=== PATIENT | female | born 1975 | race Caucasian/White ===

== ENCOUNTER → 2024-02-07 14:27 | Outpatient (REF) | payer OTHER, SELFPAY | LOC: HWWDC 14:27 | PROVIDERS: ATTENDING PHYSICIAN Obstetrics & Gynecology Gynecology; FAMILY PHYSICIAN Nurse Practitioner Adult Health | DX: Z12.31 Encounter for screening mammogram for malignant neoplasm of breast (principal) | CPT/HCPCS: 77063; 77067 ==

== ENCOUNTER → 2024-02-16 08:34 | Outpatient (REF) | payer OTHER, SELFPAY | LOC: WDC 08:34 | PROVIDERS: ATTENDING PHYSICIAN Obstetrics & Gynecology Gynecology; FAMILY PHYSICIAN Nurse Practitioner Adult Health | DX: R92.8 Other abnormal and inconclusive findings on diagnostic imaging of breast (principal) | CPT/HCPCS: 76642 ==

== ENCOUNTER → 2024-02-22 09:10 | Outpatient (REF) | payer OTHER, SELFPAY ==
--- NOTE | 2024-02-23 11:29 | OID.BR.INTR ---
OID Breast Navigator - Initial
- -
Did not meet patient at time of biopsy. Will follow up per protocol.
== END ==
LOC: WDC 09:10
PROVIDERS: ATTENDING PHYSICIAN Obstetrics & Gynecology Gynecology; FAMILY PHYSICIAN Nurse Practitioner Adult Health
DX: N63.13 Unspecified lump in the right breast, lower outer quadrant (principal)
CPT/HCPCS: 88305; 19083; 77065; 88341; 88342; 88360; A4648

== ENCOUNTER 2024-03-06 06:24 | Day surgery (SDC) | payer OTHER, SELFPAY ==
[2024-03-02 06:34] VITALS: BMI 28.2
[2024-03-02 09:11] LABS: Hematocrit 41.5 % (37.0-47.0); Hemoglobin 13.8 g/dL (12.0-16.0); Mean Corp Hgb Conc. 33.3 g/dL (33.0-37.0); Mean Corpuscular Hgb 31.4 pg (27.0-31.0); Mean Corpuscular Volume 94.3 fL (81.0-99.0); Mean Platelet Volume 9.9 fL (7.4-10.4); Platelet Count 246 10^3/uL (130-400); Red Cell Dist. Width 11.9 % (11.5-14.5)
[2024-03-02 09:46] LABS: ALT (SGPT) 23 U/L (0-35); AST (SGOT) 30 U/L (14-36); Albumin 3.8 g/dl (3.5-5.0); Alkaline Phosphatase 61 U/L (38-126); Blood Urea Nitrogen 16 mg/dl (7-17); Calcium 9.4 mg/dl (8.4-10.2); Carbon Dioxide 24 mmol/L (22-30); Chloride 103 mmol/L (98-107); Estimated Creatinine Clearance 95 ml/min; Glucose 84 mg/dl (70-99); Potassium 4.4 mmol/L (3.5-5.1); Sodium 137 mmol/L (135-145); Total Bilirubin 0.7 mg/dl (0.2-1.3); Total Protein 6.9 g/dl (6.3-8.2); eGFR > 60.00
[2024-03-02 09:47] LABS: Prealbumin (Transthyretin) 24.4 mg/dl (17.6-36.0)
[2024-03-02 09:55] LABS: Vitamin D, 25-OH*** 88.6 ng/mL (30-80)
[2024-03-06 07:50] VITALS: BMI 28.2
[2024-03-06 07:51] VITALS: BP 146/81
[2024-03-06] MEDS: NSS 1000 IV (08:04)
[2024-03-06] MEDS: TYLENOL 1000 MG PO (08:06)
[2024-03-06] MEDS: VANCOCIN 300 MG IV (08:11)
[2024-03-06] MEDS: VANCOCIN 300 ML IV (08:11)
[2024-03-06 09:48] VITALS: BP 117/72
[2024-03-06 10:03] VITALS: BP 121/64
[2024-03-06 10:30] VITALS: BP 124/64
== END 2024-03-06 11:45 | disposition home or self-care (01) ==
LOC: SDS 06:24
PROVIDERS: ATTENDING PHYSICIAN Surgery; FAMILY PHYSICIAN Nurse Practitioner Adult Health
DX: C50.911 Malignant neoplasm of unspecified site of right female breast (principal); Z17.1 Estrogen receptor negative status [ER-]
CPT/HCPCS: 36561; 36415; 71045; 76000; 80053; 82306; 84134; 85027; C1788

== ENCOUNTER → 2024-03-08 13:45 | Outpatient (REF) | payer OTHER, SELFPAY | LOC: RCS 13:45 | PROVIDERS: ATTENDING PHYSICIAN Internal Medicine Hematology & Oncology; FAMILY PHYSICIAN Nurse Practitioner Adult Health | DX: C50.511 Malignant neoplasm of lower-outer quadrant of right female breast (principal) | CPT/HCPCS: 93306 ==

== ENCOUNTER → 2024-03-12 15:41 | Outpatient (REF) | payer OTHER, SELFPAY ==
[2024-03-12 14:32] LABS: % Basophils 0.5 % (0-2); % Eosinophils 5.7 % (0-6); % Immature Granulocytes 0.2 % (0-0.5); % Lymphocytes 27.3 % (20.5-51.1); % Monocytes 7.8 % (1.7-9.3); % Neutrophils 58.5 % (42.2-75.2); Absolute Eosinophils 0.5 10^3/uL (0-0.7); Absolute Lymphocytes 2.3 10^3/uL (1.2-3.4); Absolute Monocytes 0.7 10^3/uL (0.1-0.6); Absolute Neutrophils 4.9 10^3/uL (1.4-6.5); Hematocrit 37.7 % (37.0-47.0); Hemoglobin 13.2 g/dL (12.0-16.0); Mean Corpuscular Hgb 31.3 pg (27.0-31.0); Mean Corpuscular Volume 89.3 fL (81.0-99.0); Mean Platelet Volume 9.4 fL (7.4-10.4); Nucleated Red Blood Cells % 0 %; Platelet Count 196 10^3/uL (130-400); Red Blood Cell Count 4.22 10^6/uL (4.20-5.40); Red Cell Dist. Width 11.9 % (11.5-14.5); White Blood Cell Count 8.4 10^3/uL (4.8-10.8)
[2024-03-12 14:45] LABS: ALT (SGPT) 20 U/L (0-35); AST (SGOT) 25 U/L (14-36); Albumin 3.8 g/dl (3.5-5.0); Alkaline Phosphatase 73 U/L (38-126); Blood Urea Nitrogen 17 mg/dl (7-17); Calcium 9.5 mg/dl (8.4-10.2); Carbon Dioxide 28 mmol/L (22-30); Chloride 101 mmol/L (98-107); Glucose 104 mg/dl (70-99); Potassium 3.9 mmol/L (3.5-5.1); Sodium 137 mmol/L (135-145); Total Bilirubin 0.3 mg/dl (0.2-1.3); eGFR > 60.00
== END ==
LOC: OIDL 15:41
PROVIDERS: ATTENDING PHYSICIAN Internal Medicine Hematology & Oncology
DX: C50.511 Malignant neoplasm of lower-outer quadrant of right female breast (principal)
CPT/HCPCS: 80053; 85025

== ENCOUNTER → 2024-03-27 06:47 | Outpatient (REF) | payer OTHER, SELFPAY ==
[2024-03-27 07:49] LABS: % Basophils 1.4 % (0-2); % Eosinophils 1.6 % (0-6); % Immature Granulocytes 8.2 % (0-0.5); % Monocytes 13.4 % (1.7-9.3); % Neutrophils 44.4 % (42.2-75.2); Absolute Basophils 0.1 10^3/uL (0-0.2); Absolute Eosinophils 0.1 10^3/uL (0-0.7); Absolute Immature Granulocytes 0.6 10^3/uL (0-0.05); Absolute Lymphocytes 2.4 10^3/uL (1.2-3.4); Absolute Neutrophils 3.4 10^3/uL (1.4-6.5); Hematocrit 36.6 % (37.0-47.0); Hemoglobin 12.7 g/dL (12.0-16.0); Mean Corp Hgb Conc. 34.7 g/dL (33.0-37.0); Mean Corpuscular Hgb 30.9 pg (27.0-31.0); Mean Corpuscular Volume 89.1 fL (81.0-99.0); Mean Platelet Volume 8.9 fL (7.4-10.4); Nucleated Red Blood Cells % 0 %; Platelet Count 195 10^3/uL (130-400); Red Blood Cell Count 4.11 10^6/uL (4.20-5.40); Red Cell Dist. Width 11.8 % (11.5-14.5); White Blood Cell Count 7.7 10^3/uL (4.8-10.8)
[2024-03-27 09:14] LABS: ALT (SGPT) 19 U/L (0-35); AST (SGOT) 26 U/L (14-36); Albumin 3.9 g/dl (3.5-5.0); Alkaline Phosphatase 80 U/L (38-126); Blood Urea Nitrogen 15 mg/dl (7-17); Calcium 9.7 mg/dl (8.4-10.2); Carbon Dioxide 28 mmol/L (22-30); Chloride 103 mmol/L (98-107); Glucose 91 mg/dl (70-99); Potassium 4.6 mmol/L (3.5-5.1); Sodium 138 mmol/L (135-145); Total Bilirubin 0.2 mg/dl (0.2-1.3); Total Protein 6.7 g/dl (6.3-8.2); eGFR > 60.00
== END ==
LOC: REG 06:47
PROVIDERS: ATTENDING PHYSICIAN Internal Medicine Hematology & Oncology; FAMILY PHYSICIAN Nurse Practitioner Adult Health
DX: C50.511 Malignant neoplasm of lower-outer quadrant of right female breast (principal)
CPT/HCPCS: 36415; 80053; 85025

== ENCOUNTER → 2024-04-10 07:23 | Outpatient (REF) | payer OTHER, SELFPAY ==
[2024-04-10 08:33] LABS: Hematocrit 35.2 % (37.0-47.0); Hemoglobin 12.4 g/dL (12.0-16.0); Mean Corp Hgb Conc. 35.2 g/dL (33.0-37.0); Mean Corpuscular Hgb 30.9 pg (27.0-31.0); Mean Corpuscular Volume 87.8 fL (81.0-99.0); Mean Platelet Volume 9.2 fL (7.4-10.4); Platelet Count 203 10^3/uL (130-400); Red Blood Cell Count 4.01 10^6/uL (4.20-5.40); Red Cell Dist. Width 12.1 % (11.5-14.5); White Blood Cell Count 8.9 10^3/uL (4.8-10.8)
[2024-04-10 09:04] LABS: ALT (SGPT) 16 U/L (0-35); AST (SGOT) 25 U/L (14-36); Albumin 4.2 g/dl (3.5-5.0); Alkaline Phosphatase 88 U/L (38-126); Blood Urea Nitrogen 15 mg/dl (7-17); Calcium 9.6 mg/dl (8.4-10.2); Carbon Dioxide 28 mmol/L (22-30); Chloride 103 mmol/L (98-107); Glucose 92 mg/dl (70-99); Potassium 4.3 mmol/L (3.5-5.1); Sodium 138 mmol/L (135-145); Total Bilirubin 0.4 mg/dl (0.2-1.3); Total Protein 6.7 g/dl (6.3-8.2); eGFR > 60.00
[2024-04-10 09:10] LABS: % Basophils 1.5 % (0-2); % Eosinophils 0.8 % (0-6); % Immature Granulocytes 8.5 % (0-0.5); % Lymphocytes 20.5 % (20.5-51.1); % Monocytes 14.1 % (1.7-9.3); % Neutrophils 54.6 % (42.2-75.2); Absolute Basophils 0.1 10^3/uL (0-0.2); Absolute Eosinophils 0.1 10^3/uL (0-0.7); Absolute Immature Granulocytes 0.8 10^3/uL (0-0.05); Absolute Lymphocytes 1.8 10^3/uL (1.2-3.4); Absolute Monocytes 1.3 10^3/uL (0.1-0.6); Absolute Neutrophils 4.9 10^3/uL (1.4-6.5); Nucleated Red Blood Cells % 0 %
== END ==
LOC: REG 07:23
PROVIDERS: ATTENDING PHYSICIAN Internal Medicine Hematology & Oncology
DX: C50.511 Malignant neoplasm of lower-outer quadrant of right female breast (principal)
CPT/HCPCS: 36415; 80053; 85025

== ENCOUNTER → 2024-04-24 07:08 | Outpatient (REF) | payer OTHER, SELFPAY ==
[2024-04-24 08:21] LABS: Hematocrit 30.7 % (37.0-47.0); Hemoglobin 10.9 g/dL (12.0-16.0); Mean Corp Hgb Conc. 35.5 g/dL (33.0-37.0); Mean Corpuscular Hgb 31.8 pg (27.0-31.0); Mean Corpuscular Volume 89.5 fL (81.0-99.0); Mean Platelet Volume 9.4 fL (7.4-10.4); Platelet Count 181 10^3/uL (130-400); Red Blood Cell Count 3.43 10^6/uL (4.20-5.40); Red Cell Dist. Width 13.1 % (11.5-14.5); White Blood Cell Count 6.7 10^3/uL (4.8-10.8)
[2024-04-24 08:39] LABS: Absolute Neutrophils -Man Diff 4.6 10^3/uL (1.4-6.5); Band Neutrophils 3 % (0-3); Eosinophils 2 % (0-6); Lymphocytes 17 % (20-51); Monocytes 11 % (2-9); Normal RBC Morphology Yes; Platelets Checked Yes; Segmented Neutrophils 67 % (42-75); Total Cells Counted 100
[2024-04-24 09:01] LABS: ALT (SGPT) 15 U/L (0-35); AST (SGOT) 23 U/L (14-36); Albumin 3.9 g/dl (3.5-5.0); Alkaline Phosphatase 80 U/L (38-126); Blood Urea Nitrogen 14 mg/dl (7-17); Calcium 9.7 mg/dl (8.4-10.2); Carbon Dioxide 29 mmol/L (22-30); Chloride 103 mmol/L (98-107); Glucose 94 mg/dl (70-99); Potassium 4.1 mmol/L (3.5-5.1); Sodium 138 mmol/L (135-145); Total Bilirubin 0.4 mg/dl (0.2-1.3); Total Protein 6.3 g/dl (6.3-8.2); eGFR > 60.00
== END ==
LOC: REG 07:08
PROVIDERS: ATTENDING PHYSICIAN Internal Medicine Hematology & Oncology; FAMILY PHYSICIAN Nurse Practitioner Adult Health
DX: C50.511 Malignant neoplasm of lower-outer quadrant of right female breast (principal)
CPT/HCPCS: 36415; 80053; 85025

== ENCOUNTER → 2024-05-04 14:20 | Outpatient (REF) | payer OTHER, SELFPAY | LOC: HWRAD 14:20 | PROVIDERS: ATTENDING PHYSICIAN Nurse Practitioner Family | DX: R06.09 Other forms of dyspnea (principal) | CPT/HCPCS: 71046 ==

== ENCOUNTER → 2024-05-08 07:12 | Outpatient (REF) | payer OTHER, SELFPAY ==
[2024-05-08 08:49] LABS: Hematocrit 28.3 % (37.0-47.0); Hemoglobin 9.8 g/dL (12.0-16.0); Mean Corp Hgb Conc. 34.6 g/dL (33.0-37.0); Mean Corpuscular Hgb 32.3 pg (27.0-31.0); Mean Corpuscular Volume 93.4 fL (81.0-99.0); Mean Platelet Volume 9.5 fL (7.4-10.4); Platelet Count 161 10^3/uL (130-400); Red Blood Cell Count 3.03 10^6/uL (4.20-5.40); Red Cell Dist. Width 15.7 % (11.5-14.5); White Blood Cell Count 6.1 10^3/uL (4.8-10.8)
[2024-05-08 09:09] LABS: ALT (SGPT) 13 U/L (0-35); AST (SGOT) 21 U/L (14-36); Albumin 3.7 g/dl (3.5-5.0); Alkaline Phosphatase 83 U/L (38-126); Blood Urea Nitrogen 11 mg/dl (7-17); Calcium 9.7 mg/dl (8.4-10.2); Carbon Dioxide 27 mmol/L (22-30); Chloride 105 mmol/L (98-107); Glucose 91 mg/dl (70-99); Potassium 4.3 mmol/L (3.5-5.1); Sodium 137 mmol/L (135-145); Total Bilirubin 0.2 mg/dl (0.2-1.3); Total Protein 6.2 g/dl (6.3-8.2); eGFR > 60.00
[2024-05-08 10:34] LABS: % Basophils 1.5 % (0-2); % Immature Granulocytes 8.5 % (0-0.5); % Lymphocytes 16.4 % (20.5-51.1); % Monocytes 15.3 % (1.7-9.3); % Neutrophils 57.3 % (42.2-75.2); Absolute Basophils 0.1 10^3/uL (0-0.2); Absolute Eosinophils 0.1 10^3/uL (0-0.7); Absolute Immature Granulocytes 0.5 10^3/uL (0-0.05); Absolute Monocytes 0.9 10^3/uL (0.1-0.6); Absolute Neutrophils 3.5 10^3/uL (1.4-6.5); Nucleated Red Blood Cells % 0.3 %
== END ==
LOC: REG 07:12
PROVIDERS: ATTENDING PHYSICIAN Internal Medicine Hematology & Oncology; FAMILY PHYSICIAN Nurse Practitioner Adult Health
DX: C50.511 Malignant neoplasm of lower-outer quadrant of right female breast (principal)
CPT/HCPCS: 36415; 80053; 85025

== ENCOUNTER → 2024-05-14 09:20 | Outpatient (REF) | payer OTHER, SELFPAY | LOC: RCS 09:20 | PROVIDERS: ATTENDING PHYSICIAN Nurse Practitioner Family; FAMILY PHYSICIAN Nurse Practitioner Adult Health | DX: C50.919 Malignant neoplasm of unspecified site of unspecified female breast (principal); R06.09 Other forms of dyspnea; Z92.21 Personal history of antineoplastic chemotherapy; Z17.1 Estrogen receptor negative status [ER-] | CPT/HCPCS: 93306 ==

== ENCOUNTER → 2024-05-15 08:42 | Outpatient (REF) | payer OTHER, SELFPAY ==
[2024-05-15 09:14] LABS: Hematocrit 28.1 % (37.0-47.0); Hemoglobin 9.7 g/dL (12.0-16.0); Mean Corp Hgb Conc. 34.5 g/dL (33.0-37.0); Mean Corpuscular Hgb 31.7 pg (27.0-31.0); Mean Corpuscular Volume 91.8 fL (81.0-99.0); Mean Platelet Volume 8.7 fL (7.4-10.4); Platelet Count 239 10^3/uL (130-400); Red Blood Cell Count 3.06 10^6/uL (4.20-5.40); White Blood Cell Count 2.8 10^3/uL (4.8-10.8)
[2024-05-15 09:34] LABS: ALT (SGPT) 18 U/L (0-35); AST (SGOT) 24 U/L (14-36); Albumin 3.8 g/dl (3.5-5.0); Alkaline Phosphatase 64 U/L (38-126); Blood Urea Nitrogen 11 mg/dl (7-17); Calcium 9.6 mg/dl (8.4-10.2); Carbon Dioxide 25 mmol/L (22-30); Chloride 105 mmol/L (98-107); Glucose 96 mg/dl (70-99); Potassium 4.4 mmol/L (3.5-5.1); Sodium 136 mmol/L (135-145); Total Bilirubin 0.6 mg/dl (0.2-1.3); Total Protein 6.4 g/dl (6.3-8.2); eGFR > 60.00
[2024-05-15 10:05] LABS: % Basophils 2.5 % (0-2); % Eosinophils 2.2 % (0-6); % Immature Granulocytes 1.1 % (0-0.5); % Monocytes 13.3 % (1.7-9.3); % Neutrophils 53.9 % (42.2-75.2); Absolute Basophils 0.1 10^3/uL (0-0.2); Absolute Eosinophils 0.1 10^3/uL (0-0.7); Absolute Lymphocytes 0.8 10^3/uL (1.2-3.4); Absolute Monocytes 0.4 10^3/uL (0.1-0.6); Absolute Neutrophils 1.5 10^3/uL (1.4-6.5); Nucleated Red Blood Cells % 0 %
== END ==
LOC: REG 08:42
PROVIDERS: ATTENDING PHYSICIAN Internal Medicine Hematology & Oncology; FAMILY PHYSICIAN Nurse Practitioner Adult Health
DX: C50.511 Malignant neoplasm of lower-outer quadrant of right female breast (principal)
CPT/HCPCS: 36415; 80053; 85025

== ENCOUNTER → 2024-05-22 09:04 | Outpatient (REF) | payer OTHER, SELFPAY ==
[2024-05-22 10:08] LABS: % Basophils 2.2 % (0-2); % Eosinophils 2.6 % (0-6); % Immature Granulocytes 0.9 % (0-0.5); % Lymphocytes 31.9 % (20.5-51.1); % Monocytes 9.5 % (1.7-9.3); % Neutrophils 52.9 % (42.2-75.2); Absolute Basophils 0.1 10^3/uL (0-0.2); Absolute Eosinophils 0.1 10^3/uL (0-0.7); Absolute Lymphocytes 0.7 10^3/uL (1.2-3.4); Absolute Monocytes 0.2 10^3/uL (0.1-0.6); Absolute Neutrophils 1.2 10^3/uL (1.4-6.5); Hematocrit 27.9 % (37.0-47.0); Hemoglobin 9.9 g/dL (12.0-16.0); Mean Corp Hgb Conc. 35.5 g/dL (33.0-37.0); Mean Corpuscular Hgb 33.1 pg (27.0-31.0); Mean Corpuscular Volume 93.3 fL (81.0-99.0); Mean Platelet Volume 9.1 fL (7.4-10.4); Nucleated Red Blood Cells % 0 %; Platelet Count 221 10^3/uL (130-400); Red Blood Cell Count 2.99 10^6/uL (4.20-5.40); Red Cell Dist. Width 16.5 % (11.5-14.5); White Blood Cell Count 2.3 10^3/uL (4.8-10.8)
[2024-05-22 10:25] LABS: ALT (SGPT) 23 U/L (0-35); AST (SGOT) 28 U/L (14-36); Albumin 4.1 g/dl (3.5-5.0); Alkaline Phosphatase 63 U/L (38-126); Blood Urea Nitrogen 12 mg/dl (7-17); Calcium 9.9 mg/dl (8.4-10.2); Carbon Dioxide 25 mmol/L (22-30); Chloride 102 mmol/L (98-107); Glucose 98 mg/dl (70-99); Potassium 4.3 mmol/L (3.5-5.1); Sodium 137 mmol/L (135-145); Total Bilirubin 0.7 mg/dl (0.2-1.3); Total Protein 6.5 g/dl (6.3-8.2); eGFR > 60.00
== END ==
LOC: REG 09:04
PROVIDERS: ATTENDING PHYSICIAN Internal Medicine Hematology & Oncology; FAMILY PHYSICIAN Nurse Practitioner Adult Health; REFERRING PHYSICIAN Nurse Practitioner Adult Health
DX: C50.511 Malignant neoplasm of lower-outer quadrant of right female breast (principal)
CPT/HCPCS: 36415; 71275; 80053; 85025; Q9967

== ENCOUNTER → 2024-05-24 07:38 | Outpatient (REF) | payer OTHER, SELFPAY | LOC: RSP 07:38 | PROVIDERS: ATTENDING PHYSICIAN Nurse Practitioner Adult Health; FAMILY PHYSICIAN Nurse Practitioner Adult Health | DX: C50.511 Malignant neoplasm of lower-outer quadrant of right female breast (principal) | CPT/HCPCS: 94727; 94729; 94010 ==

== ENCOUNTER → 2024-05-29 08:33 | Outpatient (REF) | payer OTHER, SELFPAY ==
[2024-05-29 10:09] LABS: % Basophils 2.1 % (0-2); % Eosinophils 2.1 % (0-6); % Immature Granulocytes 0.8 % (0-0.5); % Lymphocytes 30.7 % (20.5-51.1); % Monocytes 9.5 % (1.7-9.3); % Neutrophils 54.8 % (42.2-75.2); Absolute Basophils 0.1 10^3/uL (0-0.2); Absolute Eosinophils 0.1 10^3/uL (0-0.7); Absolute Lymphocytes 0.7 10^3/uL (1.2-3.4); Absolute Monocytes 0.2 10^3/uL (0.1-0.6); Absolute Neutrophils 1.3 10^3/uL (1.4-6.5); Hematocrit 29.6 % (37.0-47.0); Hemoglobin 10.4 g/dL (12.0-16.0); Mean Corp Hgb Conc. 35.1 g/dL (33.0-37.0); Mean Corpuscular Hgb 34.1 pg (27.0-31.0); Mean Platelet Volume 9.2 fL (7.4-10.4); Nucleated Red Blood Cells % 0 %; Platelet Count 186 10^3/uL (130-400); Red Blood Cell Count 3.05 10^6/uL (4.20-5.40); Red Cell Dist. Width 16.4 % (11.5-14.5); White Blood Cell Count 2.4 10^3/uL (4.8-10.8)
[2024-05-29 10:27] LABS: ALT (SGPT) 25 U/L (0-35); AST (SGOT) 27 U/L (14-36); Albumin 4.2 g/dl (3.5-5.0); Alkaline Phosphatase 67 U/L (38-126); Blood Urea Nitrogen 14 mg/dl (7-17); Calcium 9.9 mg/dl (8.4-10.2); Carbon Dioxide 27 mmol/L (22-30); Chloride 103 mmol/L (98-107); Glucose 102 mg/dl (70-99); Potassium 4.7 mmol/L (3.5-5.1); Sodium 139 mmol/L (135-145); Total Bilirubin 0.7 mg/dl (0.2-1.3); Total Protein 6.7 g/dl (6.3-8.2); eGFR > 60.00
== END ==
LOC: REG 08:33
PROVIDERS: ATTENDING PHYSICIAN Internal Medicine Hematology & Oncology; FAMILY PHYSICIAN Nurse Practitioner Adult Health
DX: C50.511 Malignant neoplasm of lower-outer quadrant of right female breast (principal)
CPT/HCPCS: 36415; 80053; 85025

== ENCOUNTER → 2024-06-05 07:27 | Outpatient (REF) | payer OTHER, SELFPAY ==
[2024-06-05 08:58] LABS: ALT (SGPT) 20 U/L (0-35); AST (SGOT) 25 U/L (14-36); Albumin 3.7 g/dl (3.5-5.0); Alkaline Phosphatase 67 U/L (38-126); Blood Urea Nitrogen 13 mg/dl (7-17); Calcium 9.5 mg/dl (8.4-10.2); Carbon Dioxide 23 mmol/L (22-30); Chloride 103 mmol/L (98-107); Glucose 89 mg/dl (70-99); Potassium 3.7 mmol/L (3.5-5.1); Sodium 139 mmol/L (135-145); Total Bilirubin 0.8 mg/dl (0.2-1.3); Total Protein 6.2 g/dl (6.3-8.2); eGFR > 60.00
[2024-06-05 09:07] LABS: % Basophils 1.5 % (0-2); % Eosinophils 3.6 % (0-6); % Immature Granulocytes 0.5 % (0-0.5); % Monocytes 7.1 % (1.7-9.3); % Neutrophils 53.3 % (42.2-75.2); Absolute Eosinophils 0.1 10^3/uL (0-0.7); Absolute Lymphocytes 0.7 10^3/uL (1.2-3.4); Absolute Monocytes 0.1 10^3/uL (0.1-0.6); Absolute Neutrophils 1.1 10^3/uL (1.4-6.5); Hematocrit 25.4 % (37.0-47.0); Hemoglobin 8.9 g/dL (12.0-16.0); Mean Corpuscular Hgb 33.2 pg (27.0-31.0); Mean Corpuscular Volume 94.8 fL (81.0-99.0); Mean Platelet Volume 9.5 fL (7.4-10.4); Nucleated Red Blood Cells % 0 %; Platelet Count 120 10^3/uL (130-400); Red Blood Cell Count 2.68 10^6/uL (4.20-5.40); Red Cell Dist. Width 15.5 % (11.5-14.5)
== END ==
LOC: REG 07:27
PROVIDERS: ATTENDING PHYSICIAN Internal Medicine Hematology & Oncology; FAMILY PHYSICIAN Nurse Practitioner Adult Health
DX: C50.511 Malignant neoplasm of lower-outer quadrant of right female breast (principal)
CPT/HCPCS: 36415; 80053; 85025

== ENCOUNTER → 2024-06-07 10:37 | Outpatient (REF) | payer OTHER, SELFPAY | LOC: RCS 10:37 | PROVIDERS: ATTENDING PHYSICIAN Internal Medicine; FAMILY PHYSICIAN Nurse Practitioner Adult Health; REFERRING PHYSICIAN Internal Medicine Hematology & Oncology | DX: R06.02 Shortness of breath (principal); R07.9 Chest pain, unspecified; R00.0 Tachycardia, unspecified | CPT/HCPCS: 93017 ==

== ENCOUNTER → 2024-06-07 11:29 | Outpatient (REF) | payer OTHER, SELFPAY | LOC: RAD 11:29 | PROVIDERS: ATTENDING PHYSICIAN Nurse Practitioner Adult Health; FAMILY PHYSICIAN Nurse Practitioner Adult Health; REFERRING PHYSICIAN Internal Medicine | DX: C50.511 Malignant neoplasm of lower-outer quadrant of right female breast (principal); R06.02 Shortness of breath; R07.9 Chest pain, unspecified; R00.0 Tachycardia, unspecified | CPT/HCPCS: 76536 ==

== ENCOUNTER → 2024-06-07 11:32 | Outpatient (REF) | payer OTHER, SELFPAY | LOC: RCS 11:32 | PROVIDERS: ATTENDING PHYSICIAN Internal Medicine; FAMILY PHYSICIAN Nurse Practitioner Adult Health | DX: R06.02 Shortness of breath (principal) | CPT/HCPCS: 93225; 93226 ==

== ENCOUNTER → 2024-06-12 08:13 | Outpatient (REF) | payer OTHER, SELFPAY ==
[2024-06-12 09:20] LABS: Hematocrit 29.9 % (37.0-47.0); Hemoglobin 10.3 g/dL (12.0-16.0); Mean Corp Hgb Conc. 34.4 g/dL (33.0-37.0); Mean Corpuscular Hgb 34.7 pg (27.0-31.0); Mean Corpuscular Volume 100.7 fL (81.0-99.0); Mean Platelet Volume 9.3 fL (7.4-10.4); Platelet Count 123 10^3/uL (130-400); Red Blood Cell Count 2.97 10^6/uL (4.20-5.40); Red Cell Dist. Width 15.2 % (11.5-14.5)
[2024-06-12 10:31] LABS: ALT (SGPT) 21 U/L (0-35); AST (SGOT) 25 U/L (14-36); Albumin 3.8 g/dl (3.5-5.0); Alkaline Phosphatase 76 U/L (38-126); Blood Urea Nitrogen 9 mg/dl (7-17); Calcium 9.8 mg/dl (8.4-10.2); Carbon Dioxide 27 mmol/L (22-30); Chloride 105 mmol/L (98-107); Glucose 86 mg/dl (70-99); Potassium 4.3 mmol/L (3.5-5.1); Sodium 141 mmol/L (135-145); Total Bilirubin 0.6 mg/dl (0.2-1.3); Total Protein 6.3 g/dl (6.3-8.2); eGFR > 60.00
[2024-06-12 10:45] LABS: White Blood Cell Count 2.2 10^3/uL (4.8-10.8)
[2024-06-12 10:46] LABS: Absolute Neutrophils -Man Diff 0.5 10^3/uL (1.4-6.5); Atypical Lymphocytes 4 %; Band Neutrophils 3 % (0-3); Eosinophils 5 % (0-6); Lymphocytes 48 % (20-51); Monocytes 12 % (2-9); Myelocytes 5 % (-); Normal RBC Morphology Yes; Platelets Checked Yes; Segmented Neutrophils 23 % (42-75)
[2024-06-12 10:47] LABS: Total Cells Counted 100
== END ==
LOC: REG 08:13
PROVIDERS: ATTENDING PHYSICIAN Internal Medicine Hematology & Oncology; FAMILY PHYSICIAN Nurse Practitioner Adult Health
DX: C50.511 Malignant neoplasm of lower-outer quadrant of right female breast (principal)
CPT/HCPCS: 36415; 80053; 85025

== ENCOUNTER → 2024-06-15 08:51 | Outpatient (REF) | payer OTHER, SELFPAY ==
[2024-06-15 09:51] LABS: % Basophils 0.2 % (0-2); % Immature Granulocytes 6.9 % (0-0.5); % Lymphocytes 5.6 % (20.5-51.1); % Monocytes 3.1 % (1.7-9.3); % Neutrophils 83.2 % (42.2-75.2); Absolute Basophils 0.1 10^3/uL (0-0.2); Absolute Eosinophils 0.2 10^3/uL (0-0.7); Absolute Immature Granulocytes 1.7 10^3/uL (0-0.05); Absolute Lymphocytes 1.3 10^3/uL (1.2-3.4); Absolute Monocytes 0.7 10^3/uL (0.1-0.6); Absolute Neutrophils 19.9 10^3/uL (1.4-6.5); Hematocrit 28.7 % (37.0-47.0); Hemoglobin 9.9 g/dL (12.0-16.0); Mean Corp Hgb Conc. 34.5 g/dL (33.0-37.0); Mean Corpuscular Hgb 33.7 pg (27.0-31.0); Mean Corpuscular Volume 97.6 fL (81.0-99.0); Mean Platelet Volume 9.4 fL (7.4-10.4); Nucleated Red Blood Cells % 0 %; Platelet Count 140 10^3/uL (130-400); Red Blood Cell Count 2.94 10^6/uL (4.20-5.40); Red Cell Dist. Width 15.2 % (11.5-14.5); White Blood Cell Count 23.9 10^3/uL (4.8-10.8)
== END ==
LOC: OIDL 08:51
PROVIDERS: ATTENDING PHYSICIAN Internal Medicine Hematology & Oncology
DX: C50.511 Malignant neoplasm of lower-outer quadrant of right female breast (principal); K62.5 Hemorrhage of anus and rectum
CPT/HCPCS: 85025

== ENCOUNTER → 2024-06-18 12:21 | Outpatient (REF) | payer OTHER, SELFPAY | LOC: PAVMRI 12:21 | PROVIDERS: ATTENDING PHYSICIAN Otolaryngology; FAMILY PHYSICIAN Nurse Practitioner Adult Health | DX: H93.A9 Pulsatile tinnitus, unspecified ear (principal) | CPT/HCPCS: 70543; 70553; A9575 ==

== ENCOUNTER → 2024-06-19 08:40 | Outpatient (REF) | payer OTHER, SELFPAY ==
[2024-06-19 09:30] LABS: Hematocrit 31.7 % (37.0-47.0); Mean Corp Hgb Conc. 34.7 g/dL (33.0-37.0); Mean Corpuscular Hgb 34.7 pg (27.0-31.0); Platelet Count 168 10^3/uL (130-400); Red Blood Cell Count 3.17 10^6/uL (4.20-5.40); Red Cell Dist. Width 14.2 % (11.5-14.5)
[2024-06-19 10:29] LABS: ALT (SGPT) 22 U/L (0-35); AST (SGOT) 25 U/L (14-36); Albumin 3.8 g/dl (3.5-5.0); Alkaline Phosphatase 91 U/L (38-126); Blood Urea Nitrogen 15 mg/dl (7-17); Calcium 9.6 mg/dl (8.4-10.2); Carbon Dioxide 21 mmol/L (22-30); Chloride 105 mmol/L (98-107); Glucose 86 mg/dl (70-99); Potassium 4.2 mmol/L (3.5-5.1); Sodium 140 mmol/L (135-145); Total Bilirubin 0.5 mg/dl (0.2-1.3); Total Protein 6.5 g/dl (6.3-8.2); eGFR > 60.00
[2024-06-19 11:13] LABS: Nucleated Red Blood Cells % 0 %
[2024-06-19 11:16] LABS: Segmented Neutrophils 33 % (42-75)
[2024-06-19 11:17] LABS: Band Neutrophils 2 % (0-3); Lymphocytes 39 % (20-51)
[2024-06-19 11:18] LABS: Atypical Lymphocytes 1 %; Eosinophils 5 % (0-6); Metamyelocytes 3 % (-); Monocytes 12 % (2-9)
[2024-06-19 11:19] LABS: Platelets Checked YES
[2024-06-19 11:20] LABS: Normal RBC Morphology No
[2024-06-19 11:21] LABS: Nucleated Red Blood Cells 1 (-); Poikilocytosis Slight; Tear Drop Red Blood Cells FEW
[2024-06-19 11:22] LABS: Total Cells Counted 100
== END ==
LOC: REG 08:40
PROVIDERS: ATTENDING PHYSICIAN Internal Medicine Hematology & Oncology; FAMILY PHYSICIAN Nurse Practitioner Adult Health
DX: C50.511 Malignant neoplasm of lower-outer quadrant of right female breast (principal)
CPT/HCPCS: 36415; 80053; 85025

== ENCOUNTER → 2024-06-22 11:03 | Outpatient (REF) | payer OTHER, SELFPAY ==
[2024-06-22 10:22] LABS: % Basophils 0.7 % (0-2); % Eosinophils 0.4 % (0-6); % Immature Granulocytes 7.2 % (0-0.5); % Lymphocytes 7.4 % (20.5-51.1); % Monocytes 0.9 % (1.7-9.3); % Neutrophils 83.4 % (42.2-75.2); Absolute Basophils 0.2 10^3/uL (0-0.2); Absolute Eosinophils 0.1 10^3/uL (0-0.7); Absolute Immature Granulocytes 1.6 10^3/uL (0-0.05); Absolute Lymphocytes 1.6 10^3/uL (1.2-3.4); Absolute Monocytes 0.2 10^3/uL (0.1-0.6); Hematocrit 30.8 % (37.0-47.0); Hemoglobin 10.6 g/dL (12.0-16.0); Mean Corp Hgb Conc. 34.4 g/dL (33.0-37.0); Mean Corpuscular Hgb 35.1 pg (27.0-31.0); Mean Platelet Volume 9.7 fL (7.4-10.4); Nucleated Red Blood Cells % 0 %; Platelet Count 152 10^3/uL (130-400); Red Blood Cell Count 3.02 10^6/uL (4.20-5.40); Red Cell Dist. Width 14.2 % (11.5-14.5); White Blood Cell Count 21.6 10^3/uL (4.8-10.8)
== END ==
LOC: OIDL 11:03
PROVIDERS: ATTENDING PHYSICIAN Internal Medicine Hematology & Oncology
DX: C50.511 Malignant neoplasm of lower-outer quadrant of right female breast (principal); K62.5 Hemorrhage of anus and rectum
CPT/HCPCS: 85025

== ENCOUNTER → 2024-06-26 08:20 | Outpatient (REF) | payer OTHER, SELFPAY ==
[2024-06-26 10:01] LABS: Hematocrit 30.8 % (37.0-47.0); Hemoglobin 10.9 g/dL (12.0-16.0); Mean Corp Hgb Conc. 35.4 g/dL (33.0-37.0); Mean Corpuscular Hgb 34.9 pg (27.0-31.0); Mean Corpuscular Volume 98.7 fL (81.0-99.0); Mean Platelet Volume 9.6 fL (7.4-10.4); Platelet Count 184 10^3/uL (130-400); Red Blood Cell Count 3.12 10^6/uL (4.20-5.40); Red Cell Dist. Width 12.7 % (11.5-14.5)
[2024-06-26 10:49] LABS: ALT (SGPT) 25 U/L (0-35); AST (SGOT) 26 U/L (14-36); Alkaline Phosphatase 92 U/L (38-126); Blood Urea Nitrogen 13 mg/dl (7-17); Calcium 9.5 mg/dl (8.4-10.2); Carbon Dioxide 25 mmol/L (22-30); Chloride 101 mmol/L (98-107); Glucose 90 mg/dl (70-99); Potassium 3.7 mmol/L (3.5-5.1); Sodium 138 mmol/L (135-145); Total Bilirubin 0.7 mg/dl (0.2-1.3); Total Protein 6.6 g/dl (6.3-8.2); eGFR > 60.00
[2024-06-26 11:10] LABS: White Blood Cell Count 1.9 10^3/uL (4.8-10.8)
[2024-06-26 11:11] LABS: Absolute Neutrophils -Man Diff 0.8 10^3/uL (1.4-6.5); Anisocytosis Slight; Band Neutrophils 0 % (0-3); Eosinophils 4 % (0-6); Lymphocytes 49 % (20-51); Monocytes 3 % (2-9); Normal RBC Morphology No; Platelets Checked Yes; Segmented Neutrophils 44 % (42-75)
[2024-06-26 11:12] LABS: Total Cells Counted 100
== END ==
LOC: REG 08:20
PROVIDERS: ATTENDING PHYSICIAN Internal Medicine Hematology & Oncology; FAMILY PHYSICIAN Nurse Practitioner Adult Health
DX: C50.511 Malignant neoplasm of lower-outer quadrant of right female breast (principal)
CPT/HCPCS: 36415; 80053; 85025

== ENCOUNTER → 2024-07-02 16:12 | Outpatient (REF) | payer OTHER, SELFPAY ==
[2024-07-02 11:38] LABS: Hematocrit 33.8 % (37.0-47.0); Hemoglobin 11.7 g/dL (12.0-16.0); Mean Corp Hgb Conc. 34.6 g/dL (33.0-37.0); Mean Corpuscular Hgb 33.6 pg (27.0-31.0); Mean Corpuscular Volume 97.1 fL (81.0-99.0); Platelet Count 213 10^3/uL (130-400); Red Blood Cell Count 3.48 10^6/uL (4.20-5.40); Red Cell Dist. Width 13.2 % (11.5-14.5); White Blood Cell Count 6.4 10^3/uL (4.8-10.8)
[2024-07-02 11:46] LABS: ALT (SGPT) 26 U/L (0-35); AST (SGOT) 30 U/L (14-36); Albumin 2.7 g/dl (3.5-5.0); Alkaline Phosphatase 91 U/L (38-126); Calcium 9.7 mg/dl (8.4-10.2); Carbon Dioxide 25 mmol/L (22-30); Chloride 104 mmol/L (98-107); Glucose 110 mg/dl (70-99); Potassium 3.9 mmol/L (3.5-5.1); Sodium 140 mmol/L (135-145); Total Protein 6.5 g/dl (6.3-8.2); eGFR > 60.00
[2024-07-02 11:56] LABS: Blood Urea Nitrogen 10 mg/dl (7-17); Total Bilirubin 0.3 mg/dl (0.2-1.3)
[2024-07-02 12:07] LABS: Normal RBC Morphology Yes; Platelets Checked Yes; Segmented Neutrophils 47 % (42-75)
[2024-07-02 12:08] LABS: Absolute Neutrophils -Man Diff 3.2 10^3/uL (1.4-6.5); Band Neutrophils 3 % (0-3); Eosinophils 2 % (0-6); Lymphocytes 38 % (20-51); Metamyelocytes 3 % (-); Monocytes 3 % (2-9); Myelocytes 4 % (-)
[2024-07-02 12:25] LABS: Total Cells Counted 100
== END ==
LOC: OIDL 16:12
PROVIDERS: ATTENDING PHYSICIAN Internal Medicine Hematology & Oncology
DX: C50.511 Malignant neoplasm of lower-outer quadrant of right female breast (principal); K62.5 Hemorrhage of anus and rectum
CPT/HCPCS: 80053; 85025

== ENCOUNTER → 2024-07-09 12:16 | Outpatient (REF) | payer OTHER, SELFPAY ==
[2024-07-09 12:13] LABS: % Basophils 2.1 % (0-2); % Eosinophils 0.6 % (0-6); % Immature Granulocytes 1.8 % (0-0.5); % Lymphocytes 27.9 % (20.5-51.1); % Monocytes 5.2 % (1.7-9.3); % Neutrophils 62.4 % (42.2-75.2); Absolute Basophils 0.1 10^3/uL (0-0.2); Absolute Immature Granulocytes 0.1 10^3/uL (0-0.05); Absolute Lymphocytes 0.9 10^3/uL (1.2-3.4); Absolute Monocytes 0.2 10^3/uL (0.1-0.6); Absolute Neutrophils 2.1 10^3/uL (1.4-6.5); Hematocrit 31.4 % (37.0-47.0); Hemoglobin 11.1 g/dL (12.0-16.0); Mean Corp Hgb Conc. 35.4 g/dL (33.0-37.0); Mean Corpuscular Hgb 33.6 pg (27.0-31.0); Mean Corpuscular Volume 95.2 fL (81.0-99.0); Nucleated Red Blood Cells % 0 %; Platelet Count 154 10^3/uL (130-400); Red Cell Dist. Width 12.8 % (11.5-14.5); White Blood Cell Count 3.3 10^3/uL (4.8-10.8)
[2024-07-09 13:58] LABS: ALT (SGPT) 27 U/L (0-35); AST (SGOT) 26 U/L (14-36); Albumin 3.8 g/dl (3.5-5.0); Alkaline Phosphatase 94 U/L (38-126); Blood Urea Nitrogen 15 mg/dl (7-17); Calcium 9.4 mg/dl (8.4-10.2); Carbon Dioxide 23 mmol/L (22-30); Chloride 104 mmol/L (98-107); Glucose 109 mg/dl (70-99); Sodium 139 mmol/L (135-145); Total Bilirubin 0.7 mg/dl (0.2-1.3); Total Protein 6.4 g/dl (6.3-8.2); eGFR > 60.00
== END ==
LOC: OIDL 12:16
PROVIDERS: ATTENDING PHYSICIAN Internal Medicine Hematology & Oncology
DX: C50.511 Malignant neoplasm of lower-outer quadrant of right female breast (principal); K62.5 Hemorrhage of anus and rectum
CPT/HCPCS: 80053; 85025

== ENCOUNTER → 2024-07-16 12:57 | Outpatient (REF) | payer OTHER, SELFPAY ==
[2024-07-16 12:42] LABS: % Basophils 1.4 % (0-2); % Eosinophils 1.9 % (0-6); % Immature Granulocytes 0.9 % (0-0.5); % Monocytes 6.5 % (1.7-9.3); % Neutrophils 54.3 % (42.2-75.2); Absolute Lymphocytes 0.8 10^3/uL (1.2-3.4); Absolute Monocytes 0.1 10^3/uL (0.1-0.6); Absolute Neutrophils 1.2 10^3/uL (1.4-6.5); Hematocrit 30.2 % (37.0-47.0); Hemoglobin 10.3 g/dL (12.0-16.0); Mean Corp Hgb Conc. 34.1 g/dL (33.0-37.0); Mean Corpuscular Hgb 33.4 pg (27.0-31.0); Mean Corpuscular Volume 98.1 fL (81.0-99.0); Mean Platelet Volume 10.2 fL (7.4-10.4); Nucleated Red Blood Cells % 0 %; Platelet Count 130 10^3/uL (130-400); Red Blood Cell Count 3.08 10^6/uL (4.20-5.40); Red Cell Dist. Width 12.8 % (11.5-14.5); White Blood Cell Count 2.1 10^3/uL (4.8-10.8)
[2024-07-16 12:44] LABS: ALT (SGPT) 25 U/L (0-35); AST (SGOT) 22 U/L (14-36); Albumin 3.9 g/dl (3.5-5.0); Alkaline Phosphatase 89 U/L (38-126); Blood Urea Nitrogen 12 mg/dl (7-17); Calcium 9.4 mg/dl (8.4-10.2); Carbon Dioxide 24 mmol/L (22-30); Chloride 106 mmol/L (98-107); Glucose 98 mg/dl (70-99); Potassium 3.9 mmol/L (3.5-5.1); Sodium 140 mmol/L (135-145); Total Bilirubin 0.5 mg/dl (0.2-1.3); Total Protein 6.3 g/dl (6.3-8.2); eGFR > 60.00
== END ==
LOC: OIDL 12:57
PROVIDERS: ATTENDING PHYSICIAN Internal Medicine Hematology & Oncology
DX: C50.511 Malignant neoplasm of lower-outer quadrant of right female breast (principal); K62.5 Hemorrhage of anus and rectum
CPT/HCPCS: 80053; 85025

== ENCOUNTER → 2024-07-23 11:49 | Outpatient (REF) | payer OTHER, SELFPAY ==
[2024-07-23 12:32] LABS: % Basophils 1.2 % (0-2); % Eosinophils 2.5 % (0-6); % Immature Granulocytes 0.6 % (0-0.5); % Lymphocytes 49.1 % (20.5-51.1); % Neutrophils 41.6 % (42.2-75.2); Absolute Lymphocytes 0.8 10^3/uL (1.2-3.4); Absolute Monocytes 0.1 10^3/uL (0.1-0.6); Absolute Neutrophils 0.7 10^3/uL (1.4-6.5); Hematocrit 29.9 % (37.0-47.0); Hemoglobin 10.2 g/dL (12.0-16.0); Mean Corp Hgb Conc. 34.1 g/dL (33.0-37.0); Mean Corpuscular Hgb 32.9 pg (27.0-31.0); Mean Corpuscular Volume 96.5 fL (81.0-99.0); Mean Platelet Volume 9.3 fL (7.4-10.4); Nucleated Red Blood Cells % 0 %; Platelet Count 91 10^3/uL (130-400); White Blood Cell Count 1.6 10^3/uL (4.8-10.8)
[2024-07-23 13:11] LABS: ALT (SGPT) 25 U/L (0-35); AST (SGOT) 23 U/L (14-36); Alkaline Phosphatase 77 U/L (38-126); Blood Urea Nitrogen 12 mg/dl (7-17); Calcium 9.3 mg/dl (8.4-10.2); Carbon Dioxide 23 mmol/L (22-30); Chloride 102 mmol/L (98-107); Glucose 115 mg/dl (70-99); Potassium 3.8 mmol/L (3.5-5.1); Sodium 138 mmol/L (135-145); Total Bilirubin 0.6 mg/dl (0.2-1.3); Total Protein 6.5 g/dl (6.3-8.2); eGFR > 60.00
== END ==
LOC: OIDL 11:49
PROVIDERS: ATTENDING PHYSICIAN Internal Medicine Hematology & Oncology
DX: C50.511 Malignant neoplasm of lower-outer quadrant of right female breast (principal); K62.5 Hemorrhage of anus and rectum
CPT/HCPCS: 80053; 85025

== ENCOUNTER → 2024-07-24 08:43 | Outpatient (REF) | payer OTHER, SELFPAY ==
[2024-07-24 09:44] LABS: Hematocrit 27.7 % (37.0-47.0); Hemoglobin 9.6 g/dL (12.0-16.0); Mean Corp Hgb Conc. 34.7 g/dL (33.0-37.0); Mean Corpuscular Hgb 32.8 pg (27.0-31.0); Mean Corpuscular Volume 94.5 fL (81.0-99.0); Mean Platelet Volume 9.3 fL (7.4-10.4); Platelet Count 93 10^3/uL (130-400); Red Blood Cell Count 2.93 10^6/uL (4.20-5.40); Red Cell Dist. Width 13.1 % (11.5-14.5); White Blood Cell Count 2.6 10^3/uL (4.8-10.8)
[2024-07-24 10:16] LABS: ALT (SGPT) 22 U/L (0-35); AST (SGOT) 21 U/L (14-36); Albumin 3.7 g/dl (3.5-5.0); Alkaline Phosphatase 84 U/L (38-126); Blood Urea Nitrogen 11 mg/dl (7-17); Calcium 9.4 mg/dl (8.4-10.2); Carbon Dioxide 24 mmol/L (22-30); Chloride 104 mmol/L (98-107); Glucose 88 mg/dl (70-99); Sodium 137 mmol/L (135-145); Total Bilirubin 0.6 mg/dl (0.2-1.3); Total Protein 6.1 g/dl (6.3-8.2); eGFR > 60.00
[2024-07-24 10:35] LABS: % Basophils 2.7 % (0-2); % Eosinophils 1.9 % (0-6); % Immature Granulocytes 6.6 % (0-0.5); % Monocytes 9.3 % (1.7-9.3); % Neutrophils 56.5 % (42.2-75.2); Absolute Basophils 0.1 10^3/uL (0-0.2); Absolute Eosinophils 0.1 10^3/uL (0-0.7); Absolute Immature Granulocytes 0.2 10^3/uL (0-0.05); Absolute Lymphocytes 0.6 10^3/uL (1.2-3.4); Absolute Monocytes 0.2 10^3/uL (0.1-0.6); Absolute Neutrophils 1.5 10^3/uL (1.4-6.5); Nucleated Red Blood Cells % 0 %
== END ==
LOC: REG 08:43
PROVIDERS: ATTENDING PHYSICIAN Internal Medicine Hematology & Oncology; FAMILY PHYSICIAN Nurse Practitioner Adult Health
DX: C50.511 Malignant neoplasm of lower-outer quadrant of right female breast (principal)
CPT/HCPCS: 36415; 80053; 85025

== ENCOUNTER → 2024-07-31 07:02 | Outpatient (REF) | payer OTHER, SELFPAY ==
[2024-07-31 08:44] LABS: Hematocrit 30.4 % (37.0-47.0); Hemoglobin 10.5 g/dL (12.0-16.0); Mean Corp Hgb Conc. 34.5 g/dL (33.0-37.0); Mean Corpuscular Hgb 34.5 pg (27.0-31.0); Mean Platelet Volume 9.4 fL (7.4-10.4); Platelet Count 154 10^3/uL (130-400); Red Blood Cell Count 3.04 10^6/uL (4.20-5.40); Red Cell Dist. Width 14.9 % (11.5-14.5); White Blood Cell Count 29.1 10^3/uL (4.8-10.8)
[2024-07-31 09:12] LABS: ALT (SGPT) 18 U/L (0-35); AST (SGOT) 25 U/L (14-36); Albumin 3.8 g/dl (3.5-5.0); Alkaline Phosphatase 128 U/L (38-126); Blood Urea Nitrogen 8 mg/dl (7-17); Calcium 9.4 mg/dl (8.4-10.2); Carbon Dioxide 23 mmol/L (22-30); Chloride 105 mmol/L (98-107); Glucose 83 mg/dl (70-99); Sodium 141 mmol/L (135-145); Total Bilirubin 0.4 mg/dl (0.2-1.3); Total Protein 6.3 g/dl (6.3-8.2); eGFR > 60.00
[2024-07-31 11:09] LABS: % Basophils 0.2 % (0-2); % Eosinophils 0.5 % (0-6); % Immature Granulocytes 0.7 % (0-0.5); % Lymphocytes 5.7 % (20.5-51.1); % Monocytes 4.2 % (1.7-9.3); % Neutrophils 88.7 % (42.2-75.2); Absolute Basophils 0.1 10^3/uL (0-0.2); Absolute Eosinophils 0.2 10^3/uL (0-0.7); Absolute Immature Granulocytes 0.2 10^3/uL (0-0.05); Absolute Lymphocytes 1.7 10^3/uL (1.2-3.4); Absolute Monocytes 1.2 10^3/uL (0.1-0.6); Absolute Neutrophils 25.8 10^3/uL (1.4-6.5); Nucleated Red Blood Cells % 0 %
== END ==
LOC: REG 07:02
PROVIDERS: ATTENDING PHYSICIAN Internal Medicine Hematology & Oncology; FAMILY PHYSICIAN Nurse Practitioner Adult Health
DX: C50.511 Malignant neoplasm of lower-outer quadrant of right female breast (principal)
CPT/HCPCS: 36415; 80053; 85025

== ENCOUNTER → 2024-08-03 13:51 | Outpatient (REF) | payer OTHER, SELFPAY ==
[2024-08-03 12:30] LABS: % Basophils 0.4 % (0-2); % Eosinophils 1.1 % (0-6); % Immature Granulocytes 0.7 % (0-0.5); % Lymphocytes 42.4 % (20.5-51.1); % Monocytes 6.1 % (1.7-9.3); % Neutrophils 49.3 % (42.2-75.2); Absolute Lymphocytes 1.2 10^3/uL (1.2-3.4); Absolute Monocytes 0.2 10^3/uL (0.1-0.6); Absolute Neutrophils 1.4 10^3/uL (1.4-6.5); Hematocrit 31.2 % (37.0-47.0); Hemoglobin 10.8 g/dL (12.0-16.0); Mean Corp Hgb Conc. 34.6 g/dL (33.0-37.0); Mean Corpuscular Hgb 33.8 pg (27.0-31.0); Mean Corpuscular Volume 97.5 fL (81.0-99.0); Mean Platelet Volume 9.4 fL (7.4-10.4); Nucleated Red Blood Cells % 0 %; Platelet Count 175 10^3/uL (130-400); Red Cell Dist. Width 14.5 % (11.5-14.5); White Blood Cell Count 2.8 10^3/uL (4.8-10.8)
== END ==
LOC: OIDL 13:51
PROVIDERS: ATTENDING PHYSICIAN Internal Medicine Hematology & Oncology
DX: C50.511 Malignant neoplasm of lower-outer quadrant of right female breast (principal); K62.5 Hemorrhage of anus and rectum
CPT/HCPCS: 85025

== ENCOUNTER 2024-08-07 23:04 | Emergency (ER) | payer OTHER, SELFPAY ==
[2024-08-07 23:08] VITALS: BP 131/61
[2024-08-07 23:09] VITALS: BP 131/61
[2024-08-07 23:23] VITALS: BMI 27.5
[2024-08-08] VITALS: BP 132/72
[2024-08-08 00:04] LABS: Hematocrit 27.1 % (37.0-47.0); Hemoglobin 9.6 g/dL (12.0-16.0); Mean Corp Hgb Conc. 35.4 g/dL (33.0-37.0); Mean Corpuscular Hgb 33.6 pg (27.0-31.0); Mean Corpuscular Volume 94.8 fL (81.0-99.0); Mean Platelet Volume 9.4 fL (7.4-10.4); Platelet Count 164 10^3/uL (130-400); Red Blood Cell Count 2.86 10^6/uL (4.20-5.40); Red Cell Dist. Width 14.5 % (11.5-14.5); White Blood Cell Count 20.7 10^3/uL (4.8-10.8)
[2024-08-08 00:12] LABS: ALT (SGPT) 19 U/L (0-35); Albumin 3.9 g/dl (3.5-5.0); Alkaline Phosphatase 103 U/L (38-126); Blood Urea Nitrogen 14 mg/dl (7-17); Calcium 9.7 mg/dl (8.4-10.2); Carbon Dioxide 21 mmol/L (22-30); Estimated Creatinine Clearance 96 ml/min; Potassium 3.8 mmol/L (3.5-5.1); Total Protein 6.4 g/dl (6.3-8.2); eGFR > 60.00
[2024-08-08 00:21] LABS: AST (SGOT) 20 U/L (14-36); Chloride 103 mmol/L (98-107); Glucose 107 mg/dl (70-99); Sodium 136 mmol/L (135-145); Total Bilirubin 0.3 mg/dl (0.2-1.3)
[2024-08-08 00:23] LABS: NT-proBNP 34.2 pg/ml; Troponin I < 0.012 ng/ml
[2024-08-08 01:12] LABS: D-Dimer 1.25 ug/mlFEU (0.00-0.50)
[2024-08-08 01:15] LABS: Absolute Neutrophils -Man Diff 18.2 10^3/uL (1.4-6.5); Band Neutrophils 11 % (0-3); Lymphocytes 11 % (20-51); Monocytes 1 % (2-9); Normal RBC Morphology No; Segmented Neutrophils 77 % (42-75); Tear Drop Red Blood Cells Occasional; Total Cells Counted 100
[2024-08-08 01:16] LABS: Anisocytosis Occasional; Ovalocytes 1+; Stomatocytes Occasional; Toxic Granulation 1+; Vacuolated Segs Occasional
[2024-08-08 01:29] LABS: Platelets Checked Yes
[2024-08-08 01:31] VITALS: BP 122/75
[2024-08-08 02:25] LABS: HCG, Serum Qualitative Screen Negative
--- NOTE | 2024-08-08 02:38 | ED.GENMED ---
History of Present Illness
<Sukh Brunson, DO - Last Filed: 08/09/24 15:47>
General
Chief Complaint: Heart Rate Problem
Source: patient, spouse and family
Exam Limitations: none
Time Seen by Provider: 08/07/24 23:35
Nursing documentation reviewed up to this point in time: agreed with
History of Present Illness
History of Present Illness:
41-year-old female presents emergency department due to tachycardia. She felt chest pressure, and posterior head pains. He is on chemotherapy, and did have a shot of Neulasta 2 days ago.
Past History
<Sukh Brunson DO - Last Filed: 08/09/24 15:47>
Past History
ED Past Medical History: Asthma
ED Past Surgical History: Cholecystectomy
Social History
Tobacco: Non-smoker
Alcohol: None
Drug: None
Personal:
Living: with family
Review of Systems
<Sukh Brunson, DO - Last Filed: 08/09/24 15:47>
Review of Systems
Allergies reviewed?: Yes
All Other Systems: Not applicable
Constitutional: Reports no symptoms
EENT: Reports no symptoms
Respiratory: Reports no symptoms
Cardiac: Reports palpitations
ABD/GI: Reports no symptoms
: Reports no symptoms
Musculoskeletal: Reports no symptoms
Skin: Reports no symptoms
Neurological: Reports headache
Endocrine: Reports no symptoms
Hematologic/Lymphatic: Reports no symptoms
Psychiatric: Reports no symptoms
Phy Exam
<Sukh Brunson, DO - Last Filed: 08/09/24 15:47>
Physical Exam
Physical Exam:
Physical Exam
General: no apparent distress, not acutely ill
Neck: supple. no meningeal signs. normal posterior pharynx
Heart: s1/s2 regular rate and rhythm, no murmur. equal radial
pulses. Left upper chest port
HEENT: Pupils equal round reactive to light, EOMI
Lungs: no acute respiratory distress. clear bilaterally
Abdomen: normal bowel sounds. not tender. no CVAT
Neuro: alert and oriented. no focal neurological deficits cranial nerves II through XII intact
Skin: no rash
Psychiatric: well kept. interactive and cooperative
Extremities: no edema. no calf tenderness. negative homans. good distal pulses
Course
<Sukh Brunson, DO - Last Filed: 08/09/24 15:47>
Orders/Labs/Results
Orders:
Orders
08/07/24 23:07
Electrocardiogram (*1) Urgent
Reason for Study: Other
Other Reason for Exam: Respiratory Distress
Cardiac Monitoring- Treatment ONCE
EKG- Treatment ONCE
CR Chest - 2 Views Urgent
Comment:
Reason For Exam: respiratory distress
O2 Therapy [RESP] Urgent
Titrate/Wean O2 to maintain O2 sat greater than (%): 93
Special Instructions: TO MAINTAIN CONTINUOUS O2 SATS >/= 93%
Pulse Ox/cont/shift [RESP] Urgent
Quantity: 1
Special Instructions: continuous pulse ox
08/07/24 23:37
Complete Blood Count/With Diff Urgent
Comprehensive Metabolic Panel Urgent
HCG, Serum Qualitative Screen Urgent
Comment: ADD ON
Manual Differential Urgent
NT-proBNP Urgent
Troponin I Urgent
08/07/24 23:38
Nitroglycerin Sublingual [Nitrostat (Sublingual)] 0.4 mg SL NOW STA
08/07/24 23:48
D-Dimer Urgent
08/08/24 01:23
CT Chest Pe Study Urgent
Comment:
Reason For Exam: short of breath, elevated ddimer
08/08/24 01:28
Add On- LAB Urgent
Tests Added?: hcg serum QUAL
08/08/24 01:32
CT Head & Neck Angio W/wo IV Urgent
Comment:
Reason For Exam: posterior headache, neck pain
08/08/24 03:52
Heparin Pf [Heparin Lock Flush] 500 unit .ROUTE .STK-MED ONE
08/08/24 03:53
Heparin Pf [Heparin Lock Flush] 500 unit IV NOW ONE
Abnormal Lab Results
08/07/24 08/08/24
23:37 00:48
WBC 20.7 H 10^3/uL
(4.8-10.8)
RBC 2.86 L 10^6/uL
(4.20-5.40)
Hgb 9.6 L g/dL
(12.0-16.0)
Hct 27.1 L %
(37.0-47.0)
MCH 33.6 H pg
(27.0-31.0)
Abs Neuts (Manual) 18.2 H 10^3/uL
(1.4-6.5)
Segmented Neutrophils 77 H %
(42-75)
Band Neutrophils 11 H %
(0-3)
Lymphocytes (Manual) 11 L %
(20-51)
Monocytes (Manual) 1 L %
(2-9)
D-Dimer 1.25 H ug/mlFEU
(0.00-0.50)
Carbon Dioxide 21 L mmol/L
(22-30)
Glucose 107 H mg/dl
(70-99)
08/07/24 23:37
08/07/24 23:37
Vital Signs
Initial and Last Documented VS:
Initial Vital Signs
Temp Pulse Resp BP Pulse Ox
98.4 F 107 20 131/61 100
08/07/24 23:08 08/07/24 23:08 08/07/24 23:08 08/07/24 23:08 08/07/24 23:08
Last Documented Vital Signs
Temp Pulse Resp BP Pulse Ox
98.4 F 85 20 112/71 98
08/07/24 23:08 08/08/24 04:17 08/08/24 04:17 08/08/24 04:17 08/08/24 04:49
<Brigido Lorenzo, DO - Last Filed: 08/08/24 04:07>
Orders/Labs/Results
Orders:
Orders
08/07/24 23:07
Electrocardiogram (*1) Urgent
Reason for Study: Other
Other Reason for Exam: Respiratory Distress
Cardiac Monitoring- Treatment ONCE
EKG- Treatment ONCE
CR Chest - 2 Views Urgent
Comment:
Reason For Exam: respiratory distress
O2 Therapy [RESP] Urgent
Titrate/Wean O2 to maintain O2 sat greater than (%): 93
Special Instructions: TO MAINTAIN CONTINUOUS O2 SATS >/= 93%
Pulse Ox/cont/shift [RESP] Urgent
Quantity: 1
Special Instructions: continuous pulse ox
08/07/24 23:37
Complete Blood Count/With Diff Urgent
Comprehensive Metabolic Panel Urgent
HCG, Serum Qualitative Screen Urgent
Comment: ADD ON
Manual Differential Urgent
NT-proBNP Urgent
Troponin I Urgent
08/07/24 23:38
Nitroglycerin Sublingual [Nitrostat (Sublingual)] 0.4 mg SL NOW STA
08/07/24 23:48
D-Dimer Urgent
08/08/24 01:23
CT Chest Pe Study Urgent
Comment:
Reason For Exam: short of breath, elevated ddimer
08/08/24 01:28
Add On- LAB Urgent
Tests Added?: hcg serum QUAL
08/08/24 01:32
CT Head & Neck Angio W/wo IV Urgent
Comment:
Reason For Exam: posterior headache, neck pain
08/08/24 03:52
Heparin Pf [Heparin Lock Flush] 500 unit .ROUTE .STK-MED ONE
08/08/24 03:53
Heparin Pf [Heparin Lock Flush] 500 unit IV NOW ONE
Abnormal Lab Results
08/07/24 08/08/24
23:37 00:48
WBC 20.7 H 10^3/uL
(4.8-10.8)
RBC 2.86 L 10^6/uL
(4.20-5.40)
Hgb 9.6 L g/dL
(12.0-16.0)
Hct 27.1 L %
(37.0-47.0)
MCH 33.6 H pg
(27.0-31.0)
Abs Neuts (Manual) 18.2 H 10^3/uL
(1.4-6.5)
Segmented Neutrophils 77 H %
(42-75)
Band Neutrophils 11 H %
(0-3)
Lymphocytes (Manual) 11 L %
(20-51)
Monocytes (Manual) 1 L %
(2-9)
D-Dimer 1.25 H ug/mlFEU
(0.00-0.50)
Carbon Dioxide 21 L mmol/L
(22-30)
Glucose 107 H mg/dl
(70-99)
08/07/24 23:37
08/07/24 23:37
Vital Signs
Initial and Last Documented VS:
Initial Vital Signs
Temp Pulse Resp BP Pulse Ox
98.4 F 107 20 131/61 100
08/07/24 23:08 08/07/24 23:08 08/07/24 23:08 08/07/24 23:08 08/07/24 23:08
Last Documented Vital Signs
Temp Pulse Resp BP Pulse Ox
98.4 F 85 20 112/71 98
08/07/24 23:08 08/08/24 04:17 08/08/24 04:17 08/08/24 04:17 08/08/24 04:49
<Sukh Brunson, DO - Last Filed: 08/09/24 15:47>
MDM/Problems Addressed
Differential Diagnosis Includes:
Hypokalemia, pulmonary embolism, vertebral artery dissection
MDM/Problems Addressed:
41-year-old female with tachycardia, unclear etiology, shortness of breath with elevated D-dimer. Headache and neck pain. CT chest and head and neck pending.
<Sukh Brunson, DO - Last Filed: 08/09/24 15:47>
*Pulse Oximetry
Patient hypoxic: no
*EKG
Interpreted by ED Provider?: Yes
EKG Intrepretation Date: 08/08/24
EKG Intrepretation Time: 23:14
Interpretation: abnormal
Comparison EKG: changes noted
Heart Rate: 104
Rate: tachycardiac
Rhythm: sinus tachycardia
[place]: normal axis
Interval: normal interval
QRS Pattern: normal QRS
Ischemia: non-specific ST changes
*Vocational Rehabilitation Administrator Interpretation
Rate: normal
Interpretation: normal
Heart Rate: 95
Rhythm: sinus
*Critical Care Note
Total Time (30-74mins, 75-104mins- exclusive of procedures): Not Applicable
Data Reviewed
Review of Other/Old Records Reveals: Labs
<Sukh Brunson, DO - Last Filed: 08/09/24 15:47>
Patient Management
Social determinants of health affecting care: Living situation
Escalation/DeEscalation of care consider admission/obs:
admit not indicated
<Brigido Lorenzo, DO - Last Filed: 08/08/24 04:07>
Update Note
Update Note:
IMPRESSION:
CT HEAD: No hemorrhage, hydrocephalus, or herniation. White matter disease is likely reflecting sequelae of chronic microvascular disease though limited without prior imaging for comparison. Consider MRI for further assessment versus obtaining
prior imaging to assess for chronicity.
CTA HEAD AND NECK: No large vessel occlusion or high-grade stenosis. Venous contamination artifact limits assessment. Right thyroid lobe 1.6 cm nodule for which outpatient thyroid ultrasound is advised.
CTA CHEST: No pulmonary embolism. Limited assessment of the segmental and subsegmental branches secondary to extensive artifact. No definite aortic dissection or aneurysm, limited secondary to artifact. Lungs are clear. No pneumothorax or
pleural effusion. Central airways are patent. Left-sided chest port. Hepatosplenomegaly. Status post cholecystectomy.
Finalized at 3:42 AM EST
Go Chacko M.D.
ED Attending Note
<Sukh Brunson, - Last Filed: 08/09/24 15:47>
-
Portions of this chart may have been created with voice recognition software.� Occasional wrong word or��sound alike� substitutions may have occurred due to the inherent limitations of voice recognition software.
Discharge Plan
Departure
Patient Disposition: Home (Routine Discharge)
Date of Disposition: 08/08/24
Time of Disposition: 03:58
Patient with high blood pressure during this ER visit?: No
Condition: Good
Discharge Problem:
Palpitations
Instructions: Palpitations (DC)
Prescriptions:
No Action
Claritin
10 mg PO DAILY
Miralax
1 dose PO DAILY
Referrals:
Keeley Mendez CRNP [Family Provider] -
Activity Restrictions/Additional Instructions:
Please follow-up with your family doctor to further evaluate your thyroid with an ultrasound, as discussed
Interventions
Interventions:
*Risk Screen - Suicide Last Done: 08/07/24 23:08
*General Assessment Last Done: 08/07/24 23:08
*Neglect/Abuse Screening Last Done: 08/07/24 23:08
ED- Fall Risk Assessment Last Done: 08/07/24 23:08
*ED COVID-19 Vaccine History Last Done: 08/07/24 23:08
*Nursing Disposition Last Done: 08/08/24 04:49
ED- Cardiac Assessment Last Done: 08/07/24 23:25
ED- Pulmonary Assessment Last Done: 08/07/24 23:25
Discharge Date and Time
Discharge Date/Time: 08/08/24 04:49
Print Language: URDU
[2024-08-08 03:01] VITALS: BP 111/67
[2024-08-08 03:56] VITALS: BP 109/66
[2024-08-08 04:17] VITALS: BP 112/71
== END 2024-08-08 04:49 | disposition home or self-care (01) ==
LOC: EMR 23:04
PROVIDERS: Student in an Organized Health Care Education/Training Program; EMERGENCY PHYSICIAN Emergency Medicine; FAMILY PHYSICIAN Nurse Practitioner Adult Health
DX: R00.2 Palpitations (principal); Z85.3 Personal history of malignant neoplasm of breast; Z90.49 Acquired absence of other specified parts of digestive tract
CPT/HCPCS: 99284; 96374; 36415; 70496; 70498; 71046; 71275; 80053; 83880; 84484; 84703; 85025; 85379; 93005; Q9967

== ENCOUNTER → 2024-08-14 07:23 | Outpatient (REF) | payer OTHER, SELFPAY ==
[2024-08-14 09:03] LABS: Hemoglobin 10.4 g/dL (12.0-16.0); Mean Corp Hgb Conc. 33.5 g/dL (33.0-37.0); Mean Corpuscular Hgb 33.7 pg (27.0-31.0); Mean Corpuscular Volume 100.3 fL (81.0-99.0); Mean Platelet Volume 9.9 fL (7.4-10.4); Platelet Count 193 10^3/uL (130-400); Red Blood Cell Count 3.09 10^6/uL (4.20-5.40); Red Cell Dist. Width 14.6 % (11.5-14.5); White Blood Cell Count 4.8 10^3/uL (4.8-10.8)
[2024-08-14 09:30] LABS: ALT (SGPT) 22 U/L (0-35); AST (SGOT) 22 U/L (14-36); Alkaline Phosphatase 88 U/L (38-126); Blood Urea Nitrogen 8 mg/dl (7-17); Calcium 9.4 mg/dl (8.4-10.2); Carbon Dioxide 23 mmol/L (22-30); Chloride 104 mmol/L (98-107); Glucose 85 mg/dl (70-99); Potassium 4.2 mmol/L (3.5-5.1); Sodium 138 mmol/L (135-145); Total Bilirubin 0.7 mg/dl (0.2-1.3); Total Protein 6.5 g/dl (6.3-8.2); eGFR > 60.00
[2024-08-14 10:20] LABS: Absolute Neutrophils -Man Diff 3.4 10^3/uL (1.4-6.5); Band Neutrophils 16 % (0-3); Eosinophils 2 % (0-6); Lymphocytes 22 % (20-51); Monocytes 3 % (2-9); Segmented Neutrophils 56 % (42-75)
[2024-08-14 10:21] LABS: Atypical Lymphocytes 1 %; Platelets Checked Yes
[2024-08-14 10:22] LABS: Anisocytosis 1+; Hypochromasia 1+; Normal RBC Morphology No; Ovalocytes 1+; Polychromasia 1+; Total Cells Counted 100
== END ==
LOC: REG 07:23
PROVIDERS: ATTENDING PHYSICIAN Internal Medicine Hematology & Oncology; FAMILY PHYSICIAN Nurse Practitioner Adult Health
DX: C50.511 Malignant neoplasm of lower-outer quadrant of right female breast (principal)
CPT/HCPCS: 36415; 80053; 85025

== ENCOUNTER → 2024-08-16 08:12 | Outpatient (REF) | payer OTHER, SELFPAY | LOC: WDC 08:12 | PROVIDERS: ATTENDING PHYSICIAN Surgery; FAMILY PHYSICIAN Nurse Practitioner Adult Health | DX: R92.8 Other abnormal and inconclusive findings on diagnostic imaging of breast (principal) | CPT/HCPCS: 76642 ==

== ENCOUNTER → 2024-08-21 09:29 | Outpatient (REF) | payer OTHER, SELFPAY ==
[2024-08-21 10:12] LABS: % Basophils 0.9 % (0-2); % Eosinophils 0.5 % (0-6); % Immature Granulocytes 1.5 % (0-0.5); % Lymphocytes 9.7 % (20.5-51.1); % Monocytes 5.6 % (1.7-9.3); % Neutrophils 81.8 % (42.2-75.2); Absolute Basophils 0.1 10^3/uL (0-0.2); Absolute Eosinophils 0.1 10^3/uL (0-0.7); Absolute Immature Granulocytes 0.2 10^3/uL (0-0.05); Absolute Lymphocytes 1.5 10^3/uL (1.2-3.4); Absolute Monocytes 0.8 10^3/uL (0.1-0.6); Absolute Neutrophils 12.3 10^3/uL (1.4-6.5); Hematocrit 30.5 % (37.0-47.0); Hemoglobin 10.6 g/dL (12.0-16.0); Mean Corp Hgb Conc. 34.8 g/dL (33.0-37.0); Mean Corpuscular Hgb 34.1 pg (27.0-31.0); Mean Corpuscular Volume 98.1 fL (81.0-99.0); Mean Platelet Volume 9.3 fL (7.4-10.4); Nucleated Red Blood Cells % 0 %; Platelet Count 156 10^3/uL (130-400); Red Blood Cell Count 3.11 10^6/uL (4.20-5.40); Red Cell Dist. Width 15.1 % (11.5-14.5)
[2024-08-21 10:45] LABS: ALT (SGPT) 23 U/L (0-35); AST (SGOT) 26 U/L (14-36); Alkaline Phosphatase 104 U/L (38-126); Blood Urea Nitrogen 10 mg/dl (7-17); Calcium 9.4 mg/dl (8.4-10.2); Carbon Dioxide 25 mmol/L (22-30); Chloride 103 mmol/L (98-107); Glucose 87 mg/dl (70-99); Potassium 4.1 mmol/L (3.5-5.1); Sodium 137 mmol/L (135-145); Total Bilirubin 0.7 mg/dl (0.2-1.3); Total Protein 6.4 g/dl (6.3-8.2); eGFR > 60.00
== END ==
LOC: REG 09:29
PROVIDERS: ATTENDING PHYSICIAN Internal Medicine Hematology & Oncology; FAMILY PHYSICIAN Nurse Practitioner Adult Health
DX: C50.511 Malignant neoplasm of lower-outer quadrant of right female breast (principal)
CPT/HCPCS: 36415; 80053; 85025

== ENCOUNTER → 2024-08-28 08:42 | Outpatient (REF) | payer OTHER, SELFPAY ==
[2024-08-28 12:07] LABS: ALT (SGPT) 22 U/L (0-35); AST (SGOT) 28 U/L (14-36); Albumin 3.9 g/dl (3.5-5.0); Alkaline Phosphatase 77 U/L (38-126); Blood Urea Nitrogen 13 mg/dl (7-17); Calcium 9.3 mg/dl (8.4-10.2); Carbon Dioxide 26 mmol/L (22-30); Chloride 104 mmol/L (98-107); Glucose 82 mg/dl (70-99); Sodium 138 mmol/L (135-145); Total Bilirubin 0.6 mg/dl (0.2-1.3); Total Protein 6.4 g/dl (6.3-8.2); eGFR > 60.00
[2024-08-28 12:31] LABS: Hematocrit 31.5 % (37.0-47.0); Hemoglobin 10.8 g/dL (12.0-16.0); Mean Corp Hgb Conc. 34.3 g/dL (33.0-37.0); Mean Corpuscular Volume 99.1 fL (81.0-99.0); Mean Platelet Volume 9.2 fL (7.4-10.4); Platelet Count 147 10^3/uL (130-400); Red Blood Cell Count 3.18 10^6/uL (4.20-5.40); Red Cell Dist. Width 15.3 % (11.5-14.5); White Blood Cell Count 2.8 10^3/uL (4.8-10.8)
[2024-08-28 14:56] LABS: Atypical Lymphocytes 4 %; Band Neutrophils 2 % (0-3); Eosinophils 3 % (0-6); Lymphocytes 32 % (20-51); Monocytes 23 % (2-9); Normal RBC Morphology Yes; Platelets Checked Yes; Segmented Neutrophils 35 % (42-75); Total Cells Counted 100
== END ==
LOC: REG 08:42
PROVIDERS: ATTENDING PHYSICIAN Internal Medicine Hematology & Oncology; FAMILY PHYSICIAN Nurse Practitioner Adult Health
DX: C50.511 Malignant neoplasm of lower-outer quadrant of right female breast (principal)
CPT/HCPCS: 36415; 80053; 85025

== ENCOUNTER → 2024-09-11 08:19 | Outpatient (REF) | payer OTHER, SELFPAY ==
[2024-09-11 09:10] LABS: % Basophils 0.9 % (0-2); % Eosinophils 16.4 % (0-6); % Immature Granulocytes 0.2 % (0-0.5); % Lymphocytes 26.4 % (20.5-51.1); % Monocytes 14.2 % (1.7-9.3); % Neutrophils 41.9 % (42.2-75.2); Absolute Eosinophils 0.8 10^3/uL (0-0.7); Absolute Lymphocytes 1.2 10^3/uL (1.2-3.4); Absolute Monocytes 0.7 10^3/uL (0.1-0.6); Absolute Neutrophils 1.9 10^3/uL (1.4-6.5); Hemoglobin 11.1 g/dL (12.0-16.0); Mean Corp Hgb Conc. 34.7 g/dL (33.0-37.0); Mean Corpuscular Hgb 34.2 pg (27.0-31.0); Mean Corpuscular Volume 98.5 fL (81.0-99.0); Nucleated Red Blood Cells % 0 %; Platelet Count 120 10^3/uL (130-400); Red Blood Cell Count 3.25 10^6/uL (4.20-5.40); White Blood Cell Count 4.6 10^3/uL (4.8-10.8)
[2024-09-11 10:42] LABS: ALT (SGPT) 23 U/L (0-35); AST (SGOT) 28 U/L (14-36); Alkaline Phosphatase 72 U/L (38-126); Blood Urea Nitrogen 13 mg/dl (7-17); Calcium 9.6 mg/dl (8.4-10.2); Carbon Dioxide 22 mmol/L (22-30); Chloride 106 mmol/L (98-107); Glucose 89 mg/dl (70-99); Sodium 139 mmol/L (135-145); Total Bilirubin 0.5 mg/dl (0.2-1.3); Total Protein 6.6 g/dl (6.3-8.2); eGFR > 60.00
== END ==
LOC: WDC 08:19
PROVIDERS: Internal Medicine Hematology & Oncology; ATTENDING PHYSICIAN Surgery; FAMILY PHYSICIAN Nurse Practitioner Adult Health
DX: C50.411 Malignant neoplasm of upper-outer quadrant of right female breast (principal)
CPT/HCPCS: 36415; 38792; 80053; 85025; A9541

== ENCOUNTER 2024-09-12 06:32 | Day surgery (SDC) | payer OTHER, SELFPAY ==
[2024-09-04 08:00] LABS: Hematocrit 32.3 % (37.0-47.0); Mean Corp Hgb Conc. 34.1 g/dL (33.0-37.0); Mean Corpuscular Hgb 33.7 pg (27.0-31.0); Mean Corpuscular Volume 99.1 fL (81.0-99.0); Mean Platelet Volume 8.5 fL (7.4-10.4); Platelet Count 118 10^3/uL (130-400); Red Blood Cell Count 3.26 10^6/uL (4.20-5.40); Red Cell Dist. Width 14.7 % (11.5-14.5); White Blood Cell Count 3.8 10^3/uL (4.8-10.8)
[2024-09-04 08:39] LABS: ALT (SGPT) 19 U/L (0-35); AST (SGOT) 25 U/L (14-36); Albumin 3.9 g/dl (3.5-5.0); Alkaline Phosphatase 75 U/L (38-126); Blood Urea Nitrogen 14 mg/dl (7-17); Calcium 9.5 mg/dl (8.4-10.2); Carbon Dioxide 25 mmol/L (22-30); Chloride 106 mmol/L (98-107); Glucose 89 mg/dl (70-99); Potassium 3.9 mmol/L (3.5-5.1); Sodium 139 mmol/L (135-145); Total Bilirubin 0.5 mg/dl (0.2-1.3); Total Protein 6.4 g/dl (6.3-8.2); eGFR > 60.00
[2024-09-04 08:47] LABS: Prealbumin (Transthyretin) 21.9 mg/dl (17.6-36.0)
[2024-09-04 08:53] LABS: Vitamin D, 25-OH*** 54.3 ng/mL (30-80)
[2024-09-12] VITALS (7 sets, daily range): BP systolic 0–137; BP diastolic 62–75; BMI 28.1
[2024-09-12] MEDS: EMEND 40 MG PO (12:06)
[2024-09-12] MEDS: NORMOSOL-R/PLASMALYTE-A 1000 IV (13:06)
--- NOTE | 2024-09-12 14:16 | W.SUR.PREOP ---
Pre-Operative Surgical Note
-
I have examined this patient prior to the performance of the scheduled procedure.
The patient's condition is unchanged from the time of the current History and
Physical and the patient is able to undergo the scheduled procedure.
[2024-09-12] MEDS: TYLENOL 1000 MG PO ×2 (14:30→23:20)
[2024-09-12] MEDS: LOVENOX 40 MG SC (14:31)
--- NOTE | 2024-09-12 16:33 | W.IMMPOSTOP ---
Surgical Immed Post Op Note
-
Primary Surgeon: NUZHAT Crawley MD
Assisting Surgeon:
Pre-op Diagnosis: Breast cancer
Post-op Diagnosis: Same
Procedure Performed: Bilateral immediate reconstruction of breast with tissue expanders
Anesthesia Type: General
Specimen / Cultures: Per Dr. Alves
Estimated Blood Loss: 30 cc
Complications: None
Operative Findings: As expected
--- NOTE | 2024-09-12 16:33 | OR.RPT ---
Operative Report
Operative Report
Date of surgery: 09/12/2024
Surgeon: NUZHAT Crawley MD
Preoperative diagnosis: Breast cancer
Postoperative diagnosis: Same
Procedure:
1. Bilateral immediate breast reconstruction with prepectoral tissue expanders
2. Spy angiography
Complications: None
Anesthesia: General
EBL: 30cc
Book Sewer size: 13 cm
Indications for procedure: Patient was referred to me by Dr. Alves with a recent diagnosis of breast cancer. She was planned to undergo bilateral mastectomy. We discussed her options for breast reconstruction at length including implant based
and autologous options. The patient opted for immediate reconstruction with tissue expanders. She understands that the final reconstruction will be staged. We also discussed the use of ADM and spy angiography. Risks include reconstructive
failure, capsular contracture, infection, delayed wound healing, mastectomy skin flap necrosis, hematoma, seroma and need for repeat procedure. Patient understood these risks and desired to proceed. Consents were signed accordingly.
Procedure in detail: Patient was identified the preoperative area and the surgical site was confirmed to be the bilateral breast. All questions were answered and consents were confirmed. Patient was then sat upright and normal anatomical landmarks
were marked including midline and inframammary fold. Patient was then taken back to the operating room placed supine on the table. She was prepped and draped in the usual sterile fashion using ChloraPrep solution. A Romo catheter was placed. A
timeout for patient safety was performed was confirmed that bilateral SCDs were in place and preoperative antibiotics administered. The procedure began with Dr. Alves first performing the mastectomy. Her op report will be dictated separately.
When I entered the procedure, the first sided mastectomy had been completed. As such I inspected the wound bed of the chest wall and ensured meticulous hemostasis. The base width was measured and appropriate tissue enterprise systems engineer was selected. The
enterprise systems engineer was then sutured to the chest wall with a series of 2-0 silk sutures. Pectoralis and intercostal blocks were performed with Marcaine. 2 drains were then placed in the preaxial area line with a long subcutaneous tunnel and sutured in place
with 2-0 Prolene sutures. The wound was irrigated with double antibiotic solution and dilute Betadine. The mastectomy incisions were then closed with a series of 3-0 Vicryl's in the deep subcutaneous tissues followed by 3-0 and 4-0 Monocryl's in
the deep dermis and superficial skin.
Attention was then placed on the contralateral side after completion of the mastectomy. The exact same procedure was performed. An enterprise systems engineer of the same size was opened and sutured to the chest wall using 2-0 silks. Pectoralis and intercostal
blocks were performed. Meticulous hemostasis was ensured and the wound was irrigated with combination of double antibiotic solution consisting of Ancef and gentamicin as well as dilute Betadine. The wound was closed in layers with 3-0 Vicryl
followed by 3-0 Monocryl and 4-0 Monocryl superficial skin.
Spy angiography was performed after closure to ensure adequate vascularity of the bilateral mastectomy flaps. This was confirmed. The wounds were dressed accordingly and a supportive bra was placed. The patient was extubated taken to the PACU for
further care. All counts were correct at the end the case was performed out complication.
[2024-09-12] MEDS: DILAUDID 0.5 MG IV ×2 (19:17→19:35)
[2024-09-12] MEDS: ZOFRAN 4 MG IV (19:18)
--- NOTE | 2024-09-12 20:30 | PTCARENOTE ---
[facility] from [facility] in a bed. Pt arrive with surgical bra in place and 4 LIESA drains labeled A and B on the right and C and D on the left. Admission questions answered. Full head to toe assessed. Pt oriented to room and call
alonzo. Bed locked and in lowest position. Care ongoing.
[2024-09-12] MEDS: TYLENOL PO (20:52)
[2024-09-12] MEDS: NEURONTIN 100 MG PO (21:23)
[2024-09-12] MEDS: COLACE 100 MG PO (21:23)
[2024-09-12] MEDS: ANCEF 5 IV (23:21)
[2024-09-13] MEDS: ZOFRAN 4 MG IV (00:11)
[2024-09-13] MEDS: ULTRAM 100 MG PO ×2 (00:47→09:00)
[2024-09-13 02:59] VITALS: BP 112/69
[2024-09-13 04:02] LABS: Hematocrit 29.2 % (37.0-47.0); Hemoglobin 10.1 g/dL (12.0-16.0)
[2024-09-13 04:09] LABS: Blood Urea Nitrogen 12 mg/dl (7-17); Calcium 9.2 mg/dl (8.4-10.2); Carbon Dioxide 24 mmol/L (22-30); Chloride 101 mmol/L (98-107); Estimated Creatinine Clearance 122 ml/min; Glucose 143 mg/dl (70-99); Potassium 4.3 mmol/L (3.5-5.1); Sodium 132 mmol/L (135-145); eGFR > 60.00
[2024-09-13] MEDS: TYLENOL 1000 MG PO ×2 (05:55→12:04)
[2024-09-13 08:54] VITALS: BP 108/60
[2024-09-13] MEDS: NEURONTIN 100 MG PO (08:56)
[2024-09-13] MEDS: ANCEF 5 IV (08:56)
[2024-09-13] MEDS: COLACE 100 MG PO (08:57)
[2024-09-13] MEDS: VALIUM 5 MG PO (10:43)
[2024-09-13 11:00] VITALS: BP 110/64
--- NOTE | 2024-09-13 11:31 | VNURNOTE ---
Home Health Liaison met with patient and family member to discuss [facility] nurse/therapy, visits, schedule and homebound status. Patient is agreeable and understands that visits at home will be 2-3 x per week to assess and teach medical and drain
management. [facility] brochure provided with contact information. Patient is aware that [facility] will contact them for start of care in 1-2 days after discharge from .
[facility] referral completed in [facility].
--- NOTE | 2024-09-13 11:40 | CM ---
Met with pt at bedside
Pt reports she lives with her , son and mother in a split-level home; 3 steps to enter, 6 steps to 2nd fl
Currently unemployed (was receiving chemo), independent with ADL's/ambulation, drives
DME - none
SNF/HH - no past hx
Has ride home
PCP - Leatha Mendez [employer] PUBL[employer]
Pharm - [facility]
CM consult - VN - drain
Discussed with pt - agreeable to HH - has no preference
TT sent to [facility] Liaison for home care needs
Plan - anticipate home with [facility]
--- NOTE | 2024-09-13 13:08 | W.DCSUMMARY ---
Discharge Summary
Discharge Data
Date of Admission: 09/12/24
Date of Discharge: 09/13/24
-
Pending Results: No
Discharge Plan
-
Patient Disposition: Home (Routine Discharge)
Discharge Diagnosis/Procedures: s/p bilateral mastectomy and senior technical specialist reconstruction
Condition: Good
Diet: No restrictions
Activity: No strenuous activity
Additional Activity: No heavy lifting greater than 10lbs
Driving Restrictions: Not until seen by your Dr
Bathing Restrictions: OK to Shower
Other Services: VN
Wound Care: Abd pads as needed, supportive bra, strip and record drain output twice daily
Referrals:
Keeley Mendez CRNP [Family Provider] -
Prescriptions:
New
tramadol 50 mg Tablet
50 - 100 mg PO Q6HPRN PRN (Reason: severe pain) 7 Days Qty: 20 0RF
docusate sodium 100 mg Capsule
100 mg PO BID Qty: 30 0RF
gabapentin 100 mg Capsule
100 mg PO TID 90 Days Qty: 270 0RF
diazepam 5 mg Tablet
5 mg PO TIDPRN PRN (Reason: Muscle Spasms) 14 Days Qty: 42 0RF
cefadroxil 500 mg capsule
500 mg PO BID Qty: 42 0RF
Continued
acetaminophen 500 mg Tablet
1,000 mg PO Q6H PRN (Reason: pain)
propranolol 10 mg Tablet
10 mg PO BID PRN (Reason: palpatations)
Discharge Orders:
Discharge Patient (As Directed); Ordered 09/13/24
Ordered By: Jose Crawley
Discharge Date and Time
Print Language: OCCITAN
--- NOTE | 2024-09-13 13:13 | W.PN.PLAS ---
Progress Note
Objective Data
Vital Signs
Temp Pulse Resp BP Pulse Ox
97.9 F 71 16 110/64 96
09/13/24 11:00 09/13/24 11:00 09/13/24 11:00 09/13/24 11:00 09/13/24 11:00
Intake and Output
09/12/24 09/13/24 09/14/24
06:59 06:59 06:59
Intake Total 1060 / 1060
Output Total 590 / 590
Balance 470 / 470
Intake:
Oral fluids 960 / 960
IV fluids (Total) 100 / 100
Normosol 100 / 100
Output:
Drain Output (Total) 390 / 390
Left Breast C 135 / 135
Left Breast D 30 / 30
Right Breast A 165 / 165
Right Breast B 60 / 60
Urine, Romo 200 / 200
Other:
Number of approximated SMALL 1
amounts of urine
Number of approximated LARGE 1
amounts of urine
Lab Results
09/13/24 03:47
09/13/24 03:47
Assessment / Plan
Wound stable. Patient continues to improve. Doing well. Patient anxious to go.
Patient is stable. Will discharge to home once patient is able to ambulate, void, tolerate a PO diet and pain is adequately controlled.
Visiting Nurse care ordered / not ordered.
Wound care discussed with patient.
Follow up within days.
Follow up with family physician for any medical issues.
Patient given any appropriate scripts at office pre op visit.
--- NOTE | 2024-09-26 12:48 | OR.RPT ---
Operative Report
Operative Report
Date of surgery 09/12/2024
Preop diagnosis: right breast carcinoma status post neoadjuvant chemotherapy
Postop diagnosis: right breast carcinoma status post neoadjuvant chemotherapy
Procedure: bilateral nipple sparing mastectomies and right sentinel lymph node mapping and biopsy
Surgeon: Long
Anesthesia: General
EBL: 30 cc
Secondary procedure: Immediate reconstruction with tissue expanders via Dr. Crawley
Complications none
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 On the day prior to the procedure the patient
presented to the imaging center where technetium radiotracer was injected into the right breast parenchyma. She had a previously positive lymph node that had been clipped.
The patient presented to same-day surgery and verified site and procedures. DVT and antibiotic prophylaxis were delivered. She was taken to the operating room and in the supine position, general anesthesia was induced. Romo catheter was inserted
using aseptic technique and Dr. Crawley had marked the incision sites in the inframammary folds. Both breasts, chest and axillae were prepped and draped in usual sterile fashion. Attention was first turned to the left side which was the
noncancerous side. The inframammary incision was made sharply with the blade and using a plasma blade and lighted retractor, the breast was taken off the chest wall. Vascular bundles were tied with 3-0 silk tie or suture ligature. Then the breast
was from the skin and subcutaneous tissue. Once the boundaries of the breast had been dissected ,the breast was taken off the chest wall in a superior to inferior dimension. The specimen was oriented and time out of body was noted. The
was sent immediately to pathology for processing. The area was irrigated with warm water and suctionned. Hemostasis was verified and a moist pack was placed. Plastic surgery entered to begin the reconstructive portion of the procedure.
In a similar manner the right side was approached. The inframammary incision was extended a little further laterally to more easily access the axilla. Methylene blue dye was injected in the breast parenchyma at this juncture and external massage
was applied for 5 minutes. The breast was removed in the same fashion as the left side, oriented and sent to pathology. This allowed access into the axilla and clavipectoral fascia was incised with the cautery. Using visualization of the blue dye
and the gamma probe 3 sentinel node packets were encountered 1 of which contained 3 lymph nodes. The previously clipped node was evident from treatment response and a palpable clip. The clip became dislodged therefore the lymph node was not sent
for radiography. Frozen section analysis on the lymph nodes was negative therefore no further dissection was performed at this point. Hemostasis was verified. A moist pack was placed and plastic surgery continued with the reconstructive portion
of the procedure. At this juncture all sponge needle and instrument counts were correct.
([id number])
== END 2024-09-13 15:45 | disposition home or self-care (01) ==
LOC: SDS 06:32
PROVIDERS: ATTENDING PHYSICIAN Surgery; FAMILY PHYSICIAN Nurse Practitioner Adult Health; OTHER PHYSICIAN Internal Medicine Hematology & Oncology; REFERRING PHYSICIAN Surgery Plastic and Reconstructive Surgery
DX: C50.912 Malignant neoplasm of unspecified site of left female breast (principal); C50.911 Malignant neoplasm of unspecified site of right female breast; Z92.21 Personal history of antineoplastic chemotherapy; Z17.1 Estrogen receptor negative status [ER-]
CPT/HCPCS: 19357; 19303; 38525; 88307; 88332; 36415; 80048; 80053; 82306; 84134; 85014; 85018; 85027; 88331; 88342; A4648; C1789; L8000

== ENCOUNTER → 2024-09-25 09:58 | Outpatient (REF) | payer OTHER, SELFPAY ==
[2024-09-25 11:17] LABS: % Basophils 0.4 % (0-2); % Eosinophils 21.9 % (0-6); % Immature Granulocytes 0.2 % (0-0.5); % Lymphocytes 24.5 % (20.5-51.1); Absolute Lymphocytes 1.1 10^3/uL (1.2-3.4); Absolute Monocytes 0.3 10^3/uL (0.1-0.6); Absolute Neutrophils 2.1 10^3/uL (1.4-6.5); Hemoglobin 10.6 g/dL (12.0-16.0); Mean Corp Hgb Conc. 34.2 g/dL (33.0-37.0); Mean Corpuscular Hgb 33.7 pg (27.0-31.0); Mean Corpuscular Volume 98.4 fL (81.0-99.0); Mean Platelet Volume 8.7 fL (7.4-10.4); Nucleated Red Blood Cells % 0 %; Platelet Count 221 10^3/uL (130-400); Red Blood Cell Count 3.15 10^6/uL (4.20-5.40); Red Cell Dist. Width 12.8 % (11.5-14.5); White Blood Cell Count 4.6 10^3/uL (4.8-10.8)
[2024-09-25 11:53] LABS: ALT (SGPT) 27 U/L (0-35); AST (SGOT) 29 U/L (14-36); Albumin 3.6 g/dl (3.5-5.0); Alkaline Phosphatase 96 U/L (38-126); Blood Urea Nitrogen 16 mg/dl (7-17); Calcium 9.5 mg/dl (8.4-10.2); Carbon Dioxide 26 mmol/L (22-30); Chloride 102 mmol/L (98-107); Glucose 88 mg/dl (70-99); Potassium 3.9 mmol/L (3.5-5.1); Sodium 137 mmol/L (135-145); Total Bilirubin 0.4 mg/dl (0.2-1.3); Total Protein 6.2 g/dl (6.3-8.2); eGFR > 60.00
== END ==
LOC: REG 09:58
PROVIDERS: ATTENDING PHYSICIAN Internal Medicine Hematology & Oncology; FAMILY PHYSICIAN Nurse Practitioner Adult Health; REFERRING PHYSICIAN Surgery
DX: C50.511 Malignant neoplasm of lower-outer quadrant of right female breast (principal)
CPT/HCPCS: 36415; 80053; 85025

== ENCOUNTER → 2024-10-19 12:52 | Outpatient (REF) | payer OTHER, SELFPAY | LOC: RAD 12:52 | PROVIDERS: ATTENDING PHYSICIAN Surgery Plastic and Reconstructive Surgery; FAMILY PHYSICIAN Nurse Practitioner Adult Health | DX: Z90.13 Acquired absence of bilateral breasts and nipples (principal) | CPT/HCPCS: 74174; Q9967 ==

== ENCOUNTER → 2024-10-23 11:21 | Outpatient (REF) | payer OTHER, SELFPAY ==
[2024-10-23 12:19] LABS: % Basophils 0.6 % (0-2); % Eosinophils 7.9 % (0-6); % Immature Granulocytes 0.4 % (0-0.5); % Lymphocytes 25.2 % (20.5-51.1); % Monocytes 13.2 % (1.7-9.3); % Neutrophils 52.7 % (42.2-75.2); Absolute Eosinophils 0.4 10^3/uL (0-0.7); Absolute Lymphocytes 1.3 10^3/uL (1.2-3.4); Absolute Monocytes 0.7 10^3/uL (0.1-0.6); Absolute Neutrophils 2.7 10^3/uL (1.4-6.5); Hematocrit 33.9 % (37.0-47.0); Hemoglobin 11.6 g/dL (12.0-16.0); Mean Corp Hgb Conc. 34.2 g/dL (33.0-37.0); Mean Corpuscular Hgb 32.4 pg (27.0-31.0); Mean Corpuscular Volume 94.7 fL (81.0-99.0); Mean Platelet Volume 9.1 fL (7.4-10.4); Nucleated Red Blood Cells % 0 %; Platelet Count 185 10^3/uL (130-400); Red Blood Cell Count 3.58 10^6/uL (4.20-5.40); Red Cell Dist. Width 11.3 % (11.5-14.5); White Blood Cell Count 5.1 10^3/uL (4.8-10.8)
[2024-10-23 13:33] LABS: ALT (SGPT) 16 U/L (0-35); AST (SGOT) 23 U/L (14-36); Albumin 4.1 g/dl (3.5-5.0); Alkaline Phosphatase 104 U/L (38-126); Blood Urea Nitrogen 13 mg/dl (7-17); Calcium 9.9 mg/dl (8.4-10.2); Carbon Dioxide 25 mmol/L (22-30); Chloride 101 mmol/L (98-107); Glucose 87 mg/dl (70-99); Potassium 4.1 mmol/L (3.5-5.1); Sodium 135 mmol/L (135-145); Total Bilirubin 0.3 mg/dl (0.2-1.3); Total Protein 6.9 g/dl (6.3-8.2); eGFR > 60.00
== END ==
LOC: REG 11:21
PROVIDERS: ATTENDING PHYSICIAN Internal Medicine Hematology & Oncology; FAMILY PHYSICIAN Nurse Practitioner Adult Health
DX: C50.511 Malignant neoplasm of lower-outer quadrant of right female breast (principal)
CPT/HCPCS: 36415; 80053; 85025

== ENCOUNTER → 2024-11-09 12:07 | Outpatient (REF) | payer OTHER, SELFPAY | LOC: HWRAD 12:07 | PROVIDERS: FAMILY PHYSICIAN Nurse Practitioner Adult Health; OTHER PHYSICIAN Surgery; OTHER PHYSICIAN Surgery Plastic and Reconstructive Surgery; REFERRING PHYSICIAN Internal Medicine Hematology & Oncology | DX: R22.1 Localized swelling, mass and lump, neck (principal) | CPT/HCPCS: 76536 ==

== ENCOUNTER 2024-11-11 22:23 | Inpatient (IN) | payer OTHER, SELFPAY ==
[2024-11-11 12:58] VITALS: BP 118/79
--- NOTE | 2024-11-11 15:01 | ED.GENMED ---
History of Present Illness
<Kathy Hilliard PA-C - Last Filed: 11/11/24 23:27>
General
Chief Complaint: DVT/Possible Blood Clot
Source: patient
Exam Limitations: none
Time Seen by Provider: 11/11/24 14:26
Nursing documentation reviewed up to this point in time: agreed with
History of Present Illness
History of Present Illness:
Patient is a 49-year-old female with history of breast cancer presenting to the emergency department with worsening left-sided neck swelling with known left internal jugular DVT. Patient reports diagnosed with left internal jugular DVT on Tuesday
and started on Eliquis. Today�she notes worsening swelling in her left neck and a strange pain radiating down her left arm. Patient also states she has been noticing significant shortness of breath with minimal exertion, definitely worse than her
baseline over the past few days. For example�patient states she will walk into her kitchen and feel extremely winded. Patient did discuss these findings with her oncology/primary care who recommend that she come to the emergency department to make
sure DVT is not expanding
Patient denies any chest discomfort or pleuritic chest pain. No fevers or chills. No numbness/tingling in extremities.
Patient has been compliant with Eliquis since Tuesday.
Past History
<Kathy Hilliard PA-C - Last Filed: 11/11/24 23:27>
Past History
ED Past Medical History: Asthma
ED Past Surgical History: Cholecystectomy
Social History
Tobacco: Non-smoker
Alcohol: None
Drug: None
Personal:
Living: with family
Review of Systems
<LIZBETH Aoyn Last Filed: 11/11/24 23:27>
Review of Systems
Allergies reviewed?: Yes
All Other Systems: ROS reviewed and negative except as documented in HPI and ROS
Phy Exam
<Kathy Hilliard PA-C - Last Filed: 11/11/24 23:27>
Physical Exam
Physical Exam:
Vitals: Tachycardic, otherwise stable vital signs. Afebrile
General: Patient is well appearing, no acute distress. Nontoxic
Skin: Warm and dry, no rashes or lesions
Head: Normocephalic, atraumatic
Eyes: Sclera nonicteric. EOMs intact. No nystagmus.
Throat: Protecting airway. Trachea midline
Neck: Mild swelling and tenderness to left side of neck. Normal ROM, no cervical spine tenderness, no meningismus
Cardiac: Tachycardic, normal rhythm no murmurs.
Pulm: O2 saturation 100 on room air. Normal respiratory effort, no wheezes, rales, rhonchi heard on exam.
Abdomen: Abdomen soft. No abdominal tenderness.
Extremities: Left upper extremity without any ecchymoses or edema. Palpable left radial pulse. Sensation fully intact in LUE. Cap refill WNL
Neuro: AAOx3. CN II-XII intact. No focal neurologic deficits.
Psychiatric: Normal affect.
Course
<Kathy Hilliard PA-C - Last Filed: 11/11/24 23:27>
Orders/Labs/Results
Orders:
Orders
11/11/24 13:02
EKG [Electrocardiogram (*1)] Urgent
Reason for Study: Chest Pain
EKG- Treatment ONCE
11/11/24 13:04
US Periph Venous UPPER Ext LT Urgent
Reason For Exam: left internal jugular vein thrombus
11/11/24 14:45
0.9% Sodium Chloride 500 ml [Nss] 500 ml IV BOLUS
11/11/24 14:46
CT Chest PE Study Urgent
Comment: known internal jugular DVT on eliquis
Reason For Exam: KUO
11/11/24 15:04
Add On- LAB Urgent
Tests Added?: serum hcg
11/11/24 16:46
Basic Metabolic Panel Urgent
Complete Blood Count/With Diff Urgent
HCG, Serum Qualitative Screen Urgent
Comment: ADD ON
11/11/24 19:25
Heparin 6,100 units IV NOW STA
11/11/24 19:[address] Non Medication Order As Directed
Physician Order: PTT 6 hours after initial start of Heparin infusion
Above order entered?: Yes
11/11/24 19:30
Heparin 98912 Units/250 ml 25,000 units in 250 ml IV PER PROTOCOL
Weight to be used for heparin protocol in kilograms (kg):: 76.204
Protocol:: DVT/PE
PTT Goal Range to be used:: PTT 73 to 111 seconds
Order type:: Initial
INITIAL Infusion Dose (UNITS/KG/hr) & then follow protocol:: 18 units/kg/hr
Infusion Dose in UNITS/hr & then follow protocol (UNITS/hr):: 1,400
INFUSION RATE in mL/hr & then follow protocol (mL/hr):: 14
For DVT/PE algorithm, re-bolus for low PTT?: Yes
PTT less than or equal to 64 seconds:: Re-bolus 80 units/kg (max 10,000units). Increase by 300 units/hr
(+ 3mL/hr)
PTT 64.1 to 72.9 seconds:: Re-bolus 40 units/kg (max 5,000 units). Increase by 200 units/hr
(+ 2mL/hr)
PTT 73 to 111 seconds:: Target Range. No change in rate.
PTT 111.1 to 130.9 seconds:: Decrease rate by 200 units/hr (- 2 mL/hr)
PTT 131 to 199.9 seconds:: HOLD for 1 hr. Then decrease by 200 units/hr (- 2mL/hr)
PTT greater than or equal to 200 seconds:: HOLD for 2 hrs & Notify Provider. Then decrease by 300 units/hr
(- 3mL/hr)
Lab follow-up:: Each change, PTT q6h until 2 consecutive are therapeutic. Then
PTT daily.
11/11/24 19:35
Heparin 6,100 units IV PRN PRN
11/11/24 19:39
Heparin 3,000 units IV PRN PRN
11/11/24 20:02
PTT Urgent
Comment: Obtain baseline before beginning heparin infusion if not already collected
11/11/24 22:13
Admit/Transfer Patient As Directed
Co-Sign Provider:
Level of Care: Inpatient admission
Assign to:: Medical/Surgical
Physician / Group: rosy sutton
Diagnosis: left internal jugla vein to subclavian dvt, left chest port hx R breast ca
Reason for Hospitalization: eft internal jugla vein to subclavian dvt, left chest port hx R breast ca
Expected length of stay greater than two midnights?: Yes
ELOS- Estimated Length of Stay in days: 4
I certify the patient meets the requirements for IP care: Yes
Code Status As Directed
Resuscitation Status: Full Code
11/11/24 22:18
PRN Pain Medication Management As Directed
May give lesser potent ordered pain med per pt: Yes
preference::
Protocol:: Medication orders for pain may be administered in a
manner that supports deferring to patient preference
when the pt is:
- Requesting an ordered lesser potent pain medication.
Least to most potent pain medications are defined
as: acetaminophen < NSAID < tramadol < opioids
(morphine, oxycodone, hydromorphone).
- Requesting a lesser dose of the same medication IF
ORDERED.
- Requesting a less intrusive route of administration
if both routes are prescribed by the provider (PO <
IV).
11/12/24 02:05
PTT Urgent
Abnormal Lab Results
11/11/24
16:46
RBC 3.86 L 10^6/uL
(4.20-5.40)
Hct 36.3 L %
(37.0-47.0)
MCH 32.1 H pg
(27.0-31.0)
RDW 11.4 L %
(11.5-14.5)
Absolute Monos (auto) 1.2 H 10^3/uL
(0.1-0.6)
Lymphocytes % 16.9 L %
(20.5-51.1)
Monocytes % 15.2 H %
(1.7-9.3)
Sodium 134 L mmol/L
(135-145)
11/11/24 16:46
11/11/24 16:46
Vital Signs
Initial and Last Documented VS:
Initial Vital Signs
Temp Pulse Resp BP Pulse Ox
98 F 107 16 118/79 100
11/11/24 12:58 11/11/24 12:58 11/11/24 12:58 11/11/24 12:58 11/11/24 12:58
Last Documented Vital Signs
Temp Pulse Resp BP Pulse Ox
98 F 89 12 121/79 100
11/11/24 12:58 11/11/24 22:30 11/11/24 22:30 11/11/24 22:05 11/11/24 22:30
<Arleen Philip MD - Last Filed: 11/11/24 17:10>
Orders/Labs/Results
Orders:
Orders
11/11/24 13:02
EKG [Electrocardiogram (*1)] Urgent
Reason for Study: Chest Pain
EKG- Treatment ONCE
11/11/24 13:04
US Periph Venous UPPER Ext LT Urgent
Reason For Exam: left internal jugular vein thrombus
11/11/24 14:45
0.9% Sodium Chloride 500 ml [Nss] 500 ml IV BOLUS
11/11/24 14:46
CT Chest PE Study Urgent
Comment: known internal jugular DVT on eliquis
Reason For Exam: KUO
11/11/24 15:04
Add On- LAB Urgent
Tests Added?: serum hcg
11/11/24 16:46
Basic Metabolic Panel Urgent
Complete Blood Count/With Diff Urgent
HCG, Serum Qualitative Screen Urgent
Comment: ADD ON
11/11/24 19:25
Heparin 6,100 units IV NOW STA
11/11/24 19:[address] Non Medication Order As Directed
Physician Order: PTT 6 hours after initial start of Heparin infusion
Above order entered?: Yes
11/11/24 19:30
Heparin 33197 Units/250 ml 25,000 units in 250 ml IV PER PROTOCOL
Weight to be used for heparin protocol in kilograms (kg):: 76.204
Protocol:: DVT/PE
PTT Goal Range to be used:: PTT 73 to 111 seconds
Order type:: Initial
INITIAL Infusion Dose (UNITS/KG/hr) & then follow protocol:: 18 units/kg/hr
Infusion Dose in UNITS/hr & then follow protocol (UNITS/hr):: 1,400
INFUSION RATE in mL/hr & then follow protocol (mL/hr):: 14
For DVT/PE algorithm, re-bolus for low PTT?: Yes
PTT less than or equal to 64 seconds:: Re-bolus 80 units/kg (max 10,000units). Increase by 300 units/hr
(+ 3mL/hr)
PTT 64.1 to 72.9 seconds:: Re-bolus 40 units/kg (max 5,000 units). Increase by 200 units/hr
(+ 2mL/hr)
PTT 73 to 111 seconds:: Target Range. No change in rate.
PTT 111.1 to 130.9 seconds:: Decrease rate by 200 units/hr (- 2 mL/hr)
PTT 131 to 199.9 seconds:: HOLD for 1 hr. Then decrease by 200 units/hr (- 2mL/hr)
PTT greater than or equal to 200 seconds:: HOLD for 2 hrs & Notify Provider. Then decrease by 300 units/hr
(- 3mL/hr)
Lab follow-up:: Each change, PTT q6h until 2 consecutive are therapeutic. Then
PTT daily.
11/11/24 19:35
Heparin 6,100 units IV PRN PRN
11/11/24 19:39
Heparin 3,000 units IV PRN PRN
11/11/24 20:02
PTT Urgent
Comment: Obtain baseline before beginning heparin infusion if not already collected
11/11/24 22:13
Admit/Transfer Patient As Directed
Co-Sign Provider:
Level of Care: Inpatient admission
Assign to:: Medical/Surgical
Physician / Group: rosy sutton
Diagnosis: left internal jugla vein to subclavian dvt, left chest port hx R breast ca
Reason for Hospitalization: eft internal jugla vein to subclavian dvt, left chest port hx R breast ca
Expected length of stay greater than two midnights?: Yes
ELOS- Estimated Length of Stay in days: 4
I certify the patient meets the requirements for IP care: Yes
Code Status As Directed
Resuscitation Status: Full Code
11/11/24 22:18
PRN Pain Medication Management As Directed
May give lesser potent ordered pain med per pt: Yes
preference::
Protocol:: Medication orders for pain may be administered in a
manner that supports deferring to patient preference
when the pt is:
- Requesting an ordered lesser potent pain medication.
Least to most potent pain medications are defined
as: acetaminophen < NSAID < tramadol < opioids
(morphine, oxycodone, hydromorphone).
- Requesting a lesser dose of the same medication IF
ORDERED.
- Requesting a less intrusive route of administration
if both routes are prescribed by the provider (PO <
IV).
11/12/24 02:05
PTT Urgent
Abnormal Lab Results
11/11/24
16:46
RBC 3.86 L 10^6/uL
(4.20-5.40)
Hct 36.3 L %
(37.0-47.0)
MCH 32.1 H pg
(27.0-31.0)
RDW 11.4 L %
(11.5-14.5)
Absolute Monos (auto) 1.2 H 10^3/uL
(0.1-0.6)
Lymphocytes % 16.9 L %
(20.5-51.1)
Monocytes % 15.2 H %
(1.7-9.3)
Sodium 134 L mmol/L
(135-145)
11/11/24 16:46
11/11/24 16:46
Vital Signs
Initial and Last Documented VS:
Initial Vital Signs
Temp Pulse Resp BP Pulse Ox
98 F 107 16 118/79 100
11/11/24 12:58 11/11/24 12:58 11/11/24 12:58 11/11/24 12:58 11/11/24 12:58
Last Documented Vital Signs
Temp Pulse Resp BP Pulse Ox
98 F 89 12 121/79 100
11/11/24 12:58 11/11/24 22:30 11/11/24 22:30 11/11/24 22:05 11/11/24 22:30
<Kathy Hilliard PA-C - Last Filed: 11/11/24 23:27>
MDM/Problems Addressed
Differential Diagnosis Includes:
Not limited to: DVT, PE, metastatic disease, etc.
MDM/Problems Addressed:
49-year-old female with history of breast CA and recently diagnosed DVT of left internal jugular vein on Eliquis with worsening pain/swelling of left neck. Also with worsening dyspnea on exertion. Patient has had 5 doses of Eliquis. No chest
pain, numbness/tingling in left upper extremity. Patient mildly tachycardic on arrival otherwise stable vital signs. Physical exam as above. EKG obtained in triage shows normal sinus rhythm without acute ischemic changes. Some nonspecific ST
changes noted in anterior leads. Will check basic labs and EKG. Will check ultrasound of left upper extremity given concern for expanding DVT with increase in symptoms. Given tachycardia on arrival and reported dyspnea with known DVT�will obtain
CTA chest to rule out pulmonary embolism. Patient declines any analgesia at this time
Update: Ultrasound report reviewed which shows occlusive thrombus in left internal jugular vein and nonocclusive thrombus in proximal left subclavian vein. Patient able to provide picture of initial ultrasound report review which at that time
showed no evidence of expansion of thrombus into subclavian vein. CTA chest shows no evidence of PE. Labs unremarkable. Concern for possible expanding DVT into subclavein despite anticoagulation. Patient is very concerned about worsening DVT.
This was discussed with vascular surgery, hematology/oncology (Dr. Medina), and breast surgeon Dr. Alves. Ultimately�plan to admit patient for IV heparin. Patient will have left chest wall port removed on Tuesday with Dr. Alves after 48 hours
off Eliquis. Heparin initiated in emergency department. Patient accepted to hospital service in stable condition. Patient and patient's family very comfortable with plan.
Chronic conditions affecting care:
Breast cancer, internal jugular DVT on Eliquis
Acute Exacerbation and/or Progression of Chronic Illness:
Acute DVT of left internal jugular vein and nonocclusive thrombus in left subclavian vein
<Kathy Hilliard PA-C - Last Filed: 11/11/24 23:27>
*Radiology
Radiology exam reviewed: radiology read reviewed
*Pulse Oximetry
Patient hypoxic: no
*EKG
Interpreted by ED Provider?: Yes
EKG Intrepretation Date: 11/11/24
Interpretation: normal
Comparison EKG: changes noted
Heart Rate: 88
Rate: normal
Rhythm: sinus
[place]: normal axis
Interval: normal QT interval
QRS Pattern: normal QRS
Ischemia: no ischemia
*Airframe And Power Plant Mechanic Interpretation
Rate: Airframe And Power Plant Mechanic- N/A
*Critical Care Note
Total Time (30-74mins, 75-104mins- exclusive of procedures): Not Applicable
Data Reviewed
Review of Other/Old Records Reveals: Radiology Studies (Ultrasound report from 11/09/2023 which showed occlusive DVT of left internal jugular vein with no extension into the left subclavian vein)
<Kathy Hilliard PA-C - Last Filed: 11/11/24 23:27>
Patient Management
Discussion with other providers: Hospitalist and [employer] (Hematology/oncology-Dr. Medina, breast surgeon-Dr. Alves)
Escalation/DeEscalation of care consider admission/obs:
Admit for IV heparin given concern for worsening DVT despite oral anticoagulation. Plan for OR for left chest wall port removal on Tuesday
ED Attending Note
<Kathy Hilliard PA-C - Last Filed: 11/11/24 23:27>
-
Portions of this chart may have been created with voice recognition software.� Occasional wrong word or��sound alike� substitutions may have occurred due to the inherent limitations of voice recognition software.
<Arleen Philip MD - Last Filed: 11/11/24 17:10>
ED Attending Note
Patient seen and examined by attending physician: Yes
I performed the substantive portion of visit, reviewed & personally made and approve the management plan that is documented in note by myself or HUGH.: Yes
ED Attending Note:
Patient appears well nontoxic. Patient describes increased symptoms of left jaw pain and left neck pain and swelling since yesterday. She has taken 5 doses of Eliquis. Patient has strong pulses in bilateral upper and lower extremities. She does
have a left chest wall port
Discharge Plan
Departure
Patient Disposition: Admit
Date of Disposition: 11/11/24
Time of Disposition: 19:22
Presentation/result/management discussed w/ accepting MD/DO: Hospitalist
Discharge Problem:
Acute thrombosis of left internal jugular vein
Interventions
Interventions:
*Risk Screen - Suicide Last Done: 11/11/24 12:58
*General Assessment Last Done: 11/11/24 15:13
*Neglect/Abuse Screening Last Done: 11/11/24 12:58
ED- Fall Risk Assessment Last Done: 11/11/24 15:13
*ED COVID-19 Vaccine History Last Done: 11/11/24 15:13
ED- Cardiac Assessment Last Done: 11/11/24 15:15
ED- Pulmonary Assessment Last Done: 11/11/24 15:15
ED-Peripheral Vascular Assessment Last Done: 11/11/24 15:15
ED-Skin Assessment Last Done: 11/11/24 15:15
[2024-11-11 15:13] VITALS: BMI 27.1
[2024-11-11] MEDS: NSS 500 IV (16:47)
[2024-11-11 16:58] LABS: % Basophils 0.4 % (0-2); % Eosinophils 3.5 % (0-6); % Immature Granulocytes 0.4 % (0-0.5); % Lymphocytes 16.9 % (20.5-51.1); % Monocytes 15.2 % (1.7-9.3); % Neutrophils 63.6 % (42.2-75.2); Absolute Eosinophils 0.3 10^3/uL (0-0.7); Absolute Lymphocytes 1.3 10^3/uL (1.2-3.4); Absolute Monocytes 1.2 10^3/uL (0.1-0.6); Hematocrit 36.3 % (37.0-47.0); Hemoglobin 12.4 g/dL (12.0-16.0); Mean Corp Hgb Conc. 34.2 g/dL (33.0-37.0); Mean Corpuscular Hgb 32.1 pg (27.0-31.0); Mean Platelet Volume 8.5 fL (7.4-10.4); Nucleated Red Blood Cells % 0 %; Platelet Count 185 10^3/uL (130-400); Red Blood Cell Count 3.86 10^6/uL (4.20-5.40); Red Cell Dist. Width 11.4 % (11.5-14.5); White Blood Cell Count 7.8 10^3/uL (4.8-10.8)
[2024-11-11 17:20] LABS: HCG, Serum Qualitative Screen Negative
[2024-11-11 17:24] LABS: Blood Urea Nitrogen 16 mg/dl (7-17); Calcium 9.8 mg/dl (8.4-10.2); Carbon Dioxide 25 mmol/L (22-30); Chloride 100 mmol/L (98-107); Estimated Creatinine Clearance 107 ml/min; Glucose 95 mg/dl (70-99); Sodium 134 mmol/L (135-145); eGFR > 60.00
[2024-11-11 18:21] VITALS: BP 133/79
[2024-11-11] MEDS: HEPARIN 6100 UNITS IV (20:04)
[2024-11-11] MEDS: HEPARIN 25000 UNITS/250 ML IV (20:05)
[2024-11-11 20:27] LABS: APTT 29.9 Sec (23.4-35.0)
--- NOTE | 2024-11-11 21:11 | HPS.HSE ---
Family Physician
-
Family Physician: Keeley Mendez
Chief Complaint
-
Left jugular vein swollen, patient also with current left breast seroma drainage on 11/08/2024
History of Present Illness
49-year-old female with history of breast cancer and left-sided chest port present to the ER for worsening left-sided neck swelling with known left internal jugular vein to left subclavian DVT. She has been on Eliquis for the past 3 days. She
reports swelling to her left neck with a strange pain rating down her left arm associated with shortness of breath with minimal exertion. She was sent in by her oncologist for recommendation of IV heparin drip and removal of left-sided chest port
on Tuesday. The patient developed a left breast seroma from current tissue expanders present. She had the seroma drained by her surgeon the other day she is currently on cefadroxil 500 mg to complete a course of 10-day therapy. She had plans to
have tissue expanders removed November 2023 and have a TRAM flap procedure, however she is now concerned about possible development of clot post that surgery given she developed a left internal jugular one now. I did discuss there is a absolute
increased chance for development of DVT with an invasive procedure such as that. She is aware they will hold on recent surgery as she will need to be on blood thinners until the left internal jugular DVT resolves. She is now thinking about
possible saline implants versus TRAM flap
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
herpes simplex 1, HTN, palpitations
Medical History
Past Medical History
Past Medical History: Reports Other
Additional Past Medical History:
January 2024 right breast triple negative invasive ductal carcinoma finished chemo July 2024
Left breast seroma drained by patient's surgeon 11/08/2024 patient currently on cefadroxil 500 mg for 10 days
Asthma exercise-induced has never used inhaler
HTN- pt reports resolved summer 2023 before chemo stopped her prior HCTZ
Palpitations
Migraine headaches
Herpes simplex 1
Past Surgical History: Reports Other
Additional Past Surgical History:
Cholecystectomy
Left-sided chest port placement 03/06/2024
Ultrasound-guided right breast biopsy January 2024
Bilateral mastectomy with reconstruction of breast and tissue expanders 09/12/2024
Right sentinel node mapping and biopsy August 2024
Social History
Tobacco: Non-smoker
Alcohol: None
Drug: None
Personal:
Living: With Family
Employment: Employed (Dental hygienist)
Family History
Family History: Other (Father was estranged unsure, mother living, maternal grandmother DM2, hypothyroid, maternal aunt colon cancer, 3 sisters healthy 1 with thyroid disorder, 2 sons healthy no family history of breast cancer)
Allergies / Home Medications
Allergies reflects when Allergies were last updated in [employer].
Home Medications with original date entered in [employer]
Allergy/Medication List:
Allergies
Allergy/AdvReac Type Severity Reaction Status Date / Time
latex [Latex] Allergy Rash Verified 11/11/24 12:57
paclitaxel [From Taxol] Allergy Hives Verified 11/11/24 12:57
Penicillins Allergy Pharmacy Verified 11/11/24 12:57
to Review
Home Medications
acetaminophen 500 mg tablet 1,000 mg PO Q6HPRN PRN mild pain 09/07/24
propranolol 10 mg tablet 10 mg PO BID PRN palpatations 09/07/24
cefadroxil 500 mg capsule 500 mg PO BID #42 caps 09/13/24
apixaban 5 mg tablet (Eliquis) 10 mg PO BID 11/11/24
ascorbic acid (vitamin C) 1,000 mg tablet (Vitamin C) 1 g PO DAILY 11/11/24
hydrocortisone 2.5 % topical cream 1 applic topical NOON rash 11/11/24
hydroxyzine HCl 25 mg tablet 25 mg PO BIDPRN PRN itching 11/11/24
Review of Systems
-
History Source: Patient and Family (Patient's mother at bedside)
A 12 point ROS was completed and negative except as noted: Yes
Constitutional: Denies Fever or Fatigue
EENT: Reports Other (Left side neck swelling over jugular vein); Denies Sore Throat or Runny Nose
Respiratory: Reports Trouble Breathing and Other (Left-sided chest wall port); Denies Cough
Cardiac: Denies Chest Pain, Diaphoresis or Palpitations
Abdomen/GI: Denies Abdominal Pain, Nausea, Vomiting, Diarrhea, Constipated, Bloody Stools or Black Stools
: Denies Dysuria, Frequency, Flank Pain, Incontinence, Difficulty Voiding or Urgency
Musculoskeletal: Denies Joint Pain or Edema
Skin: Denies Itching or Rash
Neurological: Denies Dizzy, Headache or Weakness
Endocrine: Reports No Symptoms
Hematologic/Lymphatic: Reports No Symptoms
Psych: Reports Calm
Physical Exam
Vital Signs
Vital Signs
Temp Pulse Resp BP Pulse Ox
98 F 94 16 133/79 100
11/11/24 12:58 11/11/24 18:21 11/11/24 18:21 11/11/24 18:21 11/11/24 18:21
Physical Exam
General: Comfortable and Conversant
HEENT: NormoCephalic, Anicteric, Moist mucous membranes, PERRLA, [place] Conjunctivae, No Ptosis and Other (Swelling over left external jugular vein with known history of DVT)
Respiratory: Clear and Other (Left-sided chest wall port present); No Wheezes, Rales or Rhonchi
Cardiac: S1/S2 and Regular Rhythm; No Murmur, Rub, Gallop, Peripheral Edema or Calf Tenderness
GI: Soft, Non Tender, Non Distended, Normal Bowel Sounds and No Hepatosplenomegaly
Genito-urinary: Deferred by me
Musculoskeletal: No Clubbing, No Cyanosis and No Edema
Skin: Warm and Dry; No Rash or Jaundice
Neuro: AO x 3, No Motor Deficits, Nonfocal/grossly intact, Cranial Nerves Intact and No Sensory Deficits; No Slurred Speech, Facial Droop, Tremors or Sedated
Psych: Calm
Laboratory Results
-
11/11/24 16:46
11/11/24 16:46
Laboratory Results
APTT 29.9 Sec (23.4-35.0) 11/11/24 20:02
Data Reviewed
-
Lab Data: Labs Reviewed by me
Impression/Plan
-
Impression/plan:
Admit to [facility]
#DVT left internal jugular vein to LEFT subclavian secondary to left-sided chest wall port
Patient has been on Eliquis x 3 days
Stop Eliquis while on heparin drip
-Will start IV heparin drip
-Plan is for removal of left-sided chest wall port on 11/13/2024
-Patient follows with Dr. Rodas
-Follow CBC, BMP
#Right BREAST TRIPLE NEGATIVE CA IDC Dx February 24, 2024/ Right sentinel node biopsy August 2024
-No IV sticks right arm
-January 2024-status post chemo finished July 2024
-Follows with Dr. Rodas
-Had plan for TRAM flap in November which now will be postponed due to current clot
#Left breast seroma Dx 11/08/2023 status post drainage in office
-Patient may continue home dose of cefadroxil 500 mg twice daily was to complete 10-day course
#HTN�benign
-Used to be on HCTZ prior to chemotherapy has not been on since summer 2023
#Palpitation Hx
-Continue propranolol 10 mg p.o. twice daily as needed palpitations
#Migraine history-no current headache
#Asthma exercise-induced
-Patient states she has never used an inhaler
Full code
[2024-11-11 22:05] VITALS: BP 121/79
--- NOTE | 2024-11-11 22:22 | W.PN.UPDATE ---
Update Note
Progress Note Update
Patient seen in conjunction with MARY GRACE. I concur with the findings on history and physical. I concur with the assessment and plan.
This is a 49-year-old female with history of breast cancer status post chemotherapy and status post bilateral mastectomy in August, currently of chemo and without radiation who presented as an outpatient for left neck swelling and was found to
have a left internal jugular vein thrombus at that time. She was started on Eliquis and has been on Eliquis for 3 days. Despite this the patient continued after neck swelling and she was sent in for further evaluation.
Patient reports history of left calf pain that has been present for weeks to months. There has been no leg swelling. Has been no leg numbness or tingling. She denies having any chest pain. She denies feeling short of breath. She had left breast
swelling and redness a few days ago. She saw plastic surgeon and was found to have a seroma. She felt better immediately after drainage. She was placed on post-op Antibiotics.
In the emergency department today she had a PE study which was negative. DVT shows left internal jugular vein with expansion into the left subclavian. She is hemodynamically stable with a blood pressure 133/80 with a pulse of 94 satting 98% on
room air. CBC is completely unremarkable. Electrolytes BUN/creatinine were stable.
Assessment and plan
Patient with expanding left internal jugular vein in the setting of a Port-A-Cath and jugular line status post 3 days of Eliquis without improvement.
- admit to med/surg
- start heparin gtt
- plan for OR on Tuesday to remove port
- ultimate anticoagulation to be determined after surgery
- pain control
- continue ppx abx for now
Code status - Full Code
[2024-11-12 01:35] VITALS: BP 125/78; BMI 26.9
--- NOTE | 2024-11-12 02:08 | TRANSFER ---
Pt arrived from ED at 0140 w dx left internal jugular vein to subclavian DVT, L chest port - hx right breast CA. Left neck is pink, tender to the touch and with movement, pt denied pain medication. VS WNL. Heparin gtt started in ED at 14mL/hr via L
AC. Pt is able to make all needs known. Call rosado within reach, bed in lowest position. Safety maintained.
[2024-11-12 03:01] LABS: APTT 140.4 Sec (23.4-35.0)
[2024-11-12 07:25] VITALS: BP 139/76
[2024-11-12] MEDS: VITAMIN C 1000 MG PO (08:12)
--- NOTE | 2024-11-12 09:41 | CON.ONC ---
Impression
Impression
- catheter associated DVT involving left IJ, subclavian vein
- hx of TNBC s/p chemotherapy -> double mastectomy
Plan
Plan
- on heparin gtt now.
- plan for port removal 11/13.
- transition back to eliquis on discharge. recommend 3 months full dose AC for provoked DVT with consideration of re-imaging at 3 months to determine if extended course to 6 months appropriate if residual clot.
- she is aware breast reconstruction scheduled next week will need to re-scheduled for 3 months from VTE.
- will re-schedule follow up with .
Patient History
History of Present Illness
Makayla is a 49-year-old female with history of early stage triple negative breast cancer s/p chemotherapy -> double mastectomy w/ expanders 09/08/24 achieved pCR who was recently diagnosed with left-sided chest port associated IJ DVT on 11/09 started
on Eliquis. She presented to the ER for worsening left-sided neck swelling despite starting AC. She has been on Eliquis for the past [address] Medina (her primary onc and election watcher this weekend) that she was still having pain, swelling
and expressed KUO. She was sent in to ER for recommendation of IV heparin drip and removal of left-sided chest port on Tuesday. Repeat US showed Prominent occlusive thrombus in the left internal jugular vein and nonocclusive thrombus in the
proximal left subclavian vein. The remaining left upper extremity venous system is patent. CT chest negative for PE. She was started on heparin gtt and admitted for further management. She has no prior hx of VTE.
Patient Medication
�Medication �Instructions �Recorded �Confirmed �Last Taken �Type
acetaminophen 500 mg tablet 1,000 mg PO Q6HPRN PRN mild pain 09/07/24 11/12/24 11/05/24 09:00 History
propranolol 10 mg tablet 10 mg PO BID PRN palpatations 09/07/24 11/11/24 08/08/24 History
cefadroxil 500 mg capsule 500 mg PO BID #42 caps 09/13/24 11/11/24 11/11/24 Rx
apixaban 5 mg tablet (Eliquis) 10 mg PO BID 11/11/24 11/11/24 11/11/24 History
ascorbic acid (vitamin C) 1,000 mg 1 g PO DAILY 11/11/24 11/12/24 11/10/24 10:00 History
tablet (Vitamin C)
hydrocortisone 2.5 % topical cream 1 applic topical NOON rash 11/11/24 11/12/24 11/10/24 10:00 History
hydroxyzine HCl 25 mg tablet 25 mg PO BIDPRN PRN itching 11/11/24 11/12/24 Unknown History
Active Medications
Generic Name Dose Route Start Last Admin
Trade Name Freq PRN Reason Stop Dose Admin
Acetaminophen 650 mg 11/12/24 01:38
Acetaminophen 325 Mg Tablet PO 12/10/24 01:37
Q4HPRN PRN
mild pain/FLAHERTY/temp> 100.4F
Ascorbic Acid 1,000 mg 11/12/24 08:00 11/12/24 08:12
Ascorbic Acid 500 Mg Tablet PO 12/10/24 07:59 1,000 mg
DAILY EMA Administration
Diphenhydramine HCl 25 mg 11/12/24 08:37
Diphenhydramine 25 Mg Capsule PO 12/10/24 08:36
Q6HPRN PRN
itching,burning
Heparin Sodium 6,100 units 11/11/24 19:35
Heparin 80 Units/Kg Iv Rebolus IV 12/09/24 19:34
PRN PRN
PTT < OR = 64 seconds
Heparin Sodium 3,000 units 11/11/24 19:39
Heparin 40 Units/Kg Iv Rebolus IV 12/09/24 19:38
PRN PRN
PTT = 64.1 to 72.9 seconds
Hydrocortisone 0 applic 11/12/24 12:00
Hydrocortisone 2.5% (Cream) Tube TOPICAL 12/10/24 11:59
NOON EMA
Hydroxyzine HCl 25 mg 11/12/24 01:38
Hydroxyzine 25 Mg Tablet PO 12/10/24 01:37
BIDPRN PRN
itching
Heparin Sodium 25,000 units in 250 mls @ 0 mls/hr 11/11/24 19:30 11/11/24 20:05
Heparin 12344 Units/250 Ml IV 250 mls
PER PROTOCOL EMA Administration
Protocol
Per Protocol
Cefadroxil 500 Mg 0 mg 11/12/24 01:38
Capsule Po Bid PO 11/17/24 22:14
BID EMA
Propranolol HCl 10 mg 11/12/24 01:38
Propranolol 10 Mg Regular Release Tablet PO 12/10/24 01:37
BID PRN
palpatations
Sodium Chloride 0 flush 11/11/24 23:00
Sodium Chloride 0.9% (Flush) Syringe IV 12/09/24 22:59
PER PROTOCOL EMA
Review of Systems
-
History Source: Patient
Constitutional: Denies Fever
EENT: Reports Sore Throat and Other (neck pain)
Respiratory: Reports Trouble Breathing; Denies Cough
Cardiac: Denies Chest Pain
Skin: Reports Itching and Rash
Neuro: Denies Headache
Hematologic/Lymphatic: Denies Bleeding or Bruising
Physical Exam
-
General: Well Developed, Well Nourished and No Apparent Distress
HEENT: Other (mild erythema, swelling of left neck, tender to touch)
Cardiology: Normal Sinus Rhythm
Pulmonary: Clear
Musculoskeletal: No Edema
Neurology: Non Focal and No Lateralizing Symptoms
Labs
Lab Results
WBC 7.8 10^3/uL (4.8-10.8) 11/11/24 16:46
RBC 3.86 10^6/uL (4.20-5.40) L 11/11/24 16:46
Hgb 12.4 g/dL (12.0-16.0) 11/11/24 16:46
Hct 36.3 % (37.0-47.0) L 11/11/24 16:46
MCV 94.0 fL (81.0-99.0) 11/11/24 16:46
MCH 32.1 pg (27.0-31.0) H 11/11/24 16:46
MCHC 34.2 g/dL (33.0-37.0) 11/11/24 16:46
RDW 11.4 % (11.5-14.5) L 11/11/24 16:46
Plt Count 185 10^3/uL (130-400) 11/11/24 16:46
MPV 8.5 fL (7.4-10.4) 11/11/24 16
Abs Immat Gran (auto) 0.0 10^3/uL (0-0.05) 11/11/24:46
Absolute Neuts (auto) 5.0 10^3/uL (1.4-6.5) 11/11/24 16:46
Absolute Lymphs (auto) 1.3 10^3/uL (1.2-3.4) 11/11/24 16:46
Absolute Monos (auto) 1.2 10^3/uL (0.1-0.6) H 11/11/24 16:46
Absolute Eos (auto) 0.3 10^3/uL (0-0.7) 11/11/24 16:46
Absolute Basos (auto) 0.0 10^3/uL (0-0.2) 11/11/24 1646
Immature Gran % 0.4 % (0-0.5) 11/11/2446
Neutrophils % 63.6 % (42.2-75.2) 11/11/24 1646
Lymphocytes % 16.9 % (20.5-51.1) L 11/11/24 16
Monocytes % 15.2 % (1.7-9.3) H 11/11/24 16:46
Eosinophils % 3.5 % (0-6) 11/11/24 16:46
Basophils % 0.4 % (0-2) 11/11/24 16:46
Creatinine 0.6 mg/dL (0.6-1.0) 11/11/24 16:46
Vital Signs
Vital Signs
Temp Pulse Resp BP Pulse Ox
98.1 F 84 16 139/76 97
11/12/24 07:25 11/12/24 07:25 11/12/24 07:25 11/12/24 07:25 11/12/24 07:25
--- NOTE | 2024-11-12 09:53 | W.PN.UPDATE ---
Update Note
Progress Note Update
Pt known to me, has left-sided portacath for the administration of chemotherapy. Developed neck swelling and diagnosed with left IJ thrombus now apparently extending slightly into the subclavian. Plan port removal in OR tomorrow. Will have been off
Eliquiis for 48 hours. Please make NPO after midnight and turn off heparin at 0800H tomorrow. Will obtain consent later today.
--- NOTE | 2024-11-12 09:53 | W.PN.HOSP.TC ---
Today's Communication/Plan
-
f/w oncology recommendations about port/ AC option
Assessment / Plan
Assessment / Plan
Physical Exam
General: Comfortable and Conversant
HEENT: NormoCephalic, Anicteric, Moist mucous membranes,
Respiratory: Clear
Cardiac: S1/S2 and Regular Rhythm; No Peripheral Edema or Calf Tenderness
GI: Soft, Non Tender, Non Distended, Normal Bowel Sounds
Genito-urinary: Nohematuria
Musculoskeletal: No Clubbing, No Cyanosis and No Edema
Skin: Warm and Dry; No Rash or Jaundice
Neuro: AO x 3, No Motor Deficits, Nonfocal/grossly intact, No Slurred Speech, Facial Droop, Tremors or Sedated
Psych: Calm
#DVT left internal jugular vein to LEFT subclavian secondary to left-sided chest wall port
was started on heparin gtt in ER
-Plan is for removal of left-sided chest wall port on 11/13/2024
-Patient follows with Dr. Rodas
Consult oncology, known to Dr Medina
-Follow CBC, BMP
# Hyponatremia, mild
# Itching/ in hands/ feet
likely chemo related
Order PRN Benadryl
#Right BREAST TRIPLE NEGATIVE CA IDC Dx February 24, 2024/ Right sentinel node biopsy August 2024
-No IV sticks right arm
-January 2024-status post chemo finished July 2024
-Follows with Dr. Rodas, Dr Medina
#Left breast seroma Dx 11/08/2023 status post drainage in office
-Patient may continue home dose of cefadroxil 500 mg twice daily was to complete 10-day course
#HTN�benign
-Used to be on HCTZ prior to chemotherapy has not been on since summer 2023
#Palpitation Hx
-Continue propranolol 10 mg p.o. twice daily as needed palpitations
#Migraine history-no current headache
#Asthma exercise-induced
-Patient states she has never used an inhaler
Full code
Total time spent to see the patient, examine the patient, review data and lab results, discuss treatment plan with patient, nursing staff around 55 minutes
Anticipated Discharge: 24 - 48 hours
Subjective/Interval History
-
Date of Service: November 12, 2024
Feels better
No chest pain
Mild discomfort at the neck
Sometimes itching in hands/ feet
Objective Data
-
Labs:
Laboratory Results
11/12/24 11/12/24 11/12/24
02:35 06:00 10:10
WBC Pending
Hgb Pending
Hct Pending
Plt Count Pending
APTT 140.4 H Pending
Sodium Pending
Potassium Pending
Chloride Pending
Carbon Dioxide Pending
BUN Pending
Creatinine Pending
Glucose Pending
Calcium Pending
Vital Signs:
Vital Signs
Temp Pulse Resp BP Pulse Ox
98.1 F 84 16 139/76 97
11/12/24 07:25 11/12/24 07:25 11/12/24 07:25 11/12/24 07:25 11/12/24 07:25
--- NOTE | 2024-11-12 10:17 | CM ---
Reviewed the chart notes and spoke with the patient at the bedside. The patient resides with her spouse in a split level home with a total of five steps to enter. The patient reports no DME/SNF in the past, but has had [facility]. The patient
confirmed her pharmacy of choice is [facility] and PCP Keeley Mendez. CM continues to be available to patient/family and is monitoring medical plan for needs at discharge.
Plan: Discharge to home when medically stable. No needs anticipated at this time.
[2024-11-12 11:07] LABS: % Basophils 0.3 % (0-2); % Eosinophils 4.9 % (0-6); % Immature Granulocytes 0.7 % (0-0.5); % Lymphocytes 20.9 % (20.5-51.1); % Monocytes 18.2 % (1.7-9.3); Absolute Eosinophils 0.3 10^3/uL (0-0.7); Absolute Immature Granulocytes 0.1 10^3/uL (0-0.05); Absolute Lymphocytes 1.5 10^3/uL (1.2-3.4); Absolute Monocytes 1.3 10^3/uL (0.1-0.6); Absolute Neutrophils 3.8 10^3/uL (1.4-6.5); Hematocrit 33.1 % (37.0-47.0); Hemoglobin 11.1 g/dL (12.0-16.0); Mean Corp Hgb Conc. 33.5 g/dL (33.0-37.0); Mean Corpuscular Hgb 31.5 pg (27.0-31.0); Mean Platelet Volume 8.8 fL (7.4-10.4); Nucleated Red Blood Cells % 0 %; Platelet Count 176 10^3/uL (130-400); Red Blood Cell Count 3.52 10^6/uL (4.20-5.40); Red Cell Dist. Width 11.5 % (11.5-14.5); White Blood Cell Count 6.9 10^3/uL (4.8-10.8)
[2024-11-12 11:14] LABS: APTT 74.2 Sec (23.4-35.0)
[2024-11-12] MEDS: HYDROCORTISONE 2.5% CREAM 1 APPLIC TOPICAL (13:05)
[2024-11-12 13:22] LABS: Sodium 136 mmol/L (135-145)
[2024-11-12 13:24] LABS: Blood Urea Nitrogen 11 mg/dl (7-17); Carbon Dioxide 24 mmol/L (22-30); Chloride 102 mmol/L (98-107); Estimated Creatinine Clearance 107 ml/min; Glucose 101 mg/dl (70-99); Potassium 3.9 mmol/L (3.5-5.1); eGFR > 60.00
[2024-11-12 13:25] LABS: Calcium 9.3 mg/dl (8.4-10.2)
[2024-11-12] MEDS: NON-FORMULARY ITEM 500 MG PO (13:47)
[2024-11-12 15:27] VITALS: BP 118/70
--- NOTE | 2024-11-12 16:50 | W.PN.UPDATE ---
Update Note
Progress Note Update
Plan port removal in OR tomorrow anytime after 11:00. Pneumatic compression stockings ordered. Pt NPO after midnight, hold heparin at 0800H. May be discharged tomorrow if ok with Med/Onc and hospitalist service.
[2024-11-12] MEDS: HEPARIN 25000 UNITS/250 ML IV (17:42)
[2024-11-12 18:58] LABS: APTT 56.4 Sec (23.4-35.0)
[2024-11-12] MEDS: HEPARIN 6100 UNITS IV (19:23)
[2024-11-12] MEDS: NON-FORMULARY ITEM 1 MG PO (20:53)
[2024-11-12 23:00] VITALS: BP 108/66
[2024-11-13] VITALS (9 sets, daily range): BP systolic 15–118; BP diastolic 60–74
[2024-11-13 02:25] LABS: APTT > 200 Sec (23.4-35.0)
[2024-11-13] MEDS: BENADRYL 25 MG PO (02:47)
[2024-11-13 07:14] LABS: % Basophils 0.6 % (0-2); % Eosinophils 5.8 % (0-6); % Immature Granulocytes 0.7 % (0-0.5); % Lymphocytes 29.6 % (20.5-51.1); % Monocytes 14.3 % (1.7-9.3); Absolute Eosinophils 0.4 10^3/uL (0-0.7); Absolute Immature Granulocytes 0.1 10^3/uL (0-0.05); Absolute Lymphocytes 2.1 10^3/uL (1.2-3.4); Absolute Neutrophils 3.5 10^3/uL (1.4-6.5); Hematocrit 32.8 % (37.0-47.0); Hemoglobin 11.1 g/dL (12.0-16.0); Mean Corp Hgb Conc. 33.8 g/dL (33.0-37.0); Mean Corpuscular Hgb 31.7 pg (27.0-31.0); Mean Corpuscular Volume 93.7 fL (81.0-99.0); Mean Platelet Volume 8.8 fL (7.4-10.4); Nucleated Red Blood Cells % 0 %; Platelet Count 186 10^3/uL (130-400); Red Cell Dist. Width 11.5 % (11.5-14.5); White Blood Cell Count 7.2 10^3/uL (4.8-10.8)
[2024-11-13 07:47] LABS: Blood Urea Nitrogen 15 mg/dl (7-17); Calcium 9.2 mg/dl (8.4-10.2); Carbon Dioxide 24 mmol/L (22-30); Chloride 105 mmol/L (98-107); Estimated Creatinine Clearance 107 ml/min; Glucose 84 mg/dl (70-99); Potassium 4.1 mmol/L (3.5-5.1); Sodium 136 mmol/L (135-145); eGFR > 60.00
--- NOTE | 2024-11-13 08:18 | W.PN.ONC2 ---
Today's Communication / Plan
-
.
Impression
Impression
- catheter associated DVT involving left IJ, subclavian vein
- hx of TNBC s/p chemotherapy -> double mastectomy
Plan
Plan
- on heparin gtt
- plan for port removal today
- transition back to [facility] on discharge. recommend 3 months full dose AC for provoked DVT with consideration of re-imaging at 3 months to determine if extended course to 6 months appropriate if residual clot.
- she is aware breast reconstruction scheduled next week will need to re-scheduled for 3 months from VTE.
- will re-schedule follow up with [facility].
Subjective/Objective
Subjective
no new complaints
Vital Signs:
Vital Signs
Temp Pulse Resp BP Pulse Ox
98.1 F 81 16 107/60 97
11/13/24 07:28 11/13/24 07:28 11/13/24 07:28 11/13/24 07:28 11/13/24 07:28
Lab Results:
Laboratory Data
WBC 7.2 10^3/uL (4.8-10.8) 11/13/24 05:32
Hgb 11.1 g/dL (12.0-16.0) L 11/13/24 05:32
Plt Count 186 10^3/uL (130-400) 11/13/24 05:32
APTT Cancelled 11/13/24 10:25
eGFR > 60.00 11/13/24 05:32
Physical Exam
General: Well Developed, Well Nourished and No Apparent Distress
HEENT: Other (mild erythema, swelling of left neck, tender to touch)
Cardiology: Normal Sinus Rhythm
Pulmonary: Clear
Musculoskeletal: No Edema
Neurology: Non Focal and No Lateralizing Symptoms
[2024-11-13] MEDS: NON-FORMULARY ITEM 500 MG PO (08:35)
[2024-11-13] MEDS: VITAMIN C 1000 MG PO (08:35)
--- NOTE | 2024-11-13 09:19 | PN.CDI ---
Addendum entered and electronically signed by Elaine Omer MD 11/13/24 09:47:
Acute
Original Note:
CDI
- -
CDI:
Physician Documentation Request
Admit Date: 11/11/24 22:23
Dear Doctor Negra,
Patient admitted for DVT.
ER Physician Documentation: 'with known left internal jugular DVT. Patient reports diagnosed with left internal jugular DVT on Tuesday and started on Eliquis.'
11/12 Hospitalist PN: 'DVT left internal jugular vein to LEFT subclavian secondary to left-sided chest wall port was started on heparin gtt in ER'
Clarify which of the following accurately represents the acuity of the DVT. Possible options might include:
____ Acute
Chronic
____ Other
Use of terms such as suspected, likely, concern for, or probable (associated with a specific diagnosis that is being evaluated, monitored, or treated as if it exists) are acceptable and can be coded in the inpatient setting, when documented at the
time of discharge.
Thank you,
Purnima Singh RN, BSN
CDI Specialist
Available via iger text
Please use your independent medical judgment in providing your response.
[2024-11-13 09:34] LABS: D-Dimer 1.73 ug/mlFEU (0.00-0.50)
--- NOTE | 2024-11-13 09:44 | W.PN.HOSP.TC ---
Today's Communication/Plan
-
NPO for port removal
Holding IV Heparin gtt
Switch to Eliquis post procedure
Assessment / Plan
Assessment / Plan
Physical Exam
General: Comfortable and Conversant
HEENT: NormoCephalic, Anicteric, Moist mucous membranes,
Respiratory: Clear
Cardiac: S1/S2 and Regular Rhythm; No Peripheral Edema or Calf Tenderness
GI: Soft, Non Tender, Non Distended, Normal Bowel Sounds
Genito-urinary: Nohematuria
Musculoskeletal: No Clubbing, No Cyanosis and No Edema
Skin: Warm and Dry; No Rash or Jaundice
Neuro: AO x 3, No Motor Deficits, Nonfocal/grossly intact, No Slurred Speech, Facial Droop, Tremors or Sedated
Psych: Calm
#DVT left internal jugular vein to LEFT subclavian secondary to left-sided chest wall port
was started on heparin gtt , plan to switch to Eliquis post port removal
-Patient follows with Dr. Rodas
Consulted oncology, known to Dr Medina, trisha for Eliquis.
# Hyponatremia, mild, resolved.
# Itching/ in hands/ feet
likely chemo related
Order PRN Benadryl
#Right BREAST TRIPLE NEGATIVE CA IDC Dx February 24, 2024/ Right sentinel node biopsy August 2024
-No IV sticks right arm
-January 2024-status post chemo finished July 2024
-Follows with Dr. Rodas, Dr Medina
#Left breast seroma Dx 11/08/2023 status post drainage in office
-Patient may continue home dose of cefadroxil 500 mg twice daily was to complete 10-day course
#HTN�benign
-Used to be on HCTZ prior to chemotherapy has not been on since summer 2023
#Palpitation Hx
-Continue propranolol 10 mg p.o. twice daily as needed palpitations
#Migraine history-no current headache
#Asthma exercise-induced
-Patient states she has never used an inhaler
Full code
Total time spent to see the patient, examine the patient, review data and lab results, discuss treatment plan with patient, nursing staff around 55 minutes
Anticipated Discharge: Within 24 hours
Subjective/Interval History
-
Date of Service: November 13, 2024
No chest pain
No fevers
No sob
Objective Data
-
Labs:
Laboratory Results
11/13/24 11/13/24 11/13/24
01:39 05:32 10:25
WBC 7.2
Hgb 11.1 L
Hct 32.8 L
Plt Count 186
APTT > 200 H* Cancelled
Sodium 136
Potassium 4.1
Chloride 105
Carbon Dioxide 24
BUN 15
Creatinine 0.6
Glucose 84
Calcium 9.2
Vital Signs:
Vital Signs
Temp Pulse Resp BP Pulse Ox
98.1 F 81 16 107/60 97
11/13/24 07:28 11/13/24 07:28 11/13/24 07:28 11/13/24 07:28 11/13/24 07:28
I&O
11/12/24 11/13/24 11/14/24
06:59 06:59 06:59
Intake Total 2670 / 2670
Balance 2670 / 2670
--- NOTE | 2024-11-13 10:18 | CM ---
Reviewed the chart notes. Per note, plan for port removal today. CM continues to be available to patient/family and is monitoring medical plan for needs at discharge.
Plan: Discharge to home when medically stable. No anticipated needs identified at this time.
--- NOTE | 2024-11-13 15:22 | W.IMMPOSTOP ---
Surgical Immed Post Op Note
-
Primary Surgeon: Long
Assisting Surgeon: None
Pre-op Diagnosis: Right breast ca; left internal jugular vein thrombus
Post-op Diagnosis: Right breast ca; left internal jugular vein thrombus
Procedure Performed: Removal left portacath
Anesthesia Type: TIVA
Specimen / Cultures: None
Estimated Blood Loss: 2cc
Complications: None
Operative Findings: None
--- NOTE | 2024-11-13 15:23 | OR.RPT ---
Operative Report
Operative Report
Pre-Op DX: right breast ca; left internal jugular vein thrombus
Post-Op DX: right breast ca; left internal jugular vein thrombus
Procedure: removal left portacath
Surgeon: Long
The patient is a 49-year-old female with triple negative left breast carcinoma who underwent neoadjuvant chemotherapy followed by surgery and still had an indwelling left Port-A-Cath. She developed swelling of her left neck and Doppler study
revealed a thrombus in the internal jugular vein. She presents for port removal. Patient was brought to the operating room where she verified site and procedure. DVT and antibiotic prophylaxis have been provided. She was taken to the operating
room and in the supine position intravenous sedation was delivered. Left chest and neck were prepped and draped in usual sterile fashion. Appropriate timeout was performed by all staff members. Tissues were anesthetized with 1% lidocaine plain.
Previous insertion site incision was entered sharply with separate blade and dissection was carried down to the port pocket using the cautery. The port extruded easily and the catheter was removed from the vascular tract intact. That vascular
channel was suture-ligated with a 3-0 plain gut suture. Hemostasis was maintained with the cautery. Marcaine 0.5% plain was instilled in the wound was closed using simple interrupted 3-0 plain on subcutaneous tissue and a running subcuticular 4
Monocryl on skin. Surgical glue and a sterile compressive dressing were applied. All sponge needle and instrument counts were correct and the patient was transferred to the recovery room in stable condition
([id number])
[2024-11-13] MEDS: HYDROCORTISONE 2.5% CREAM TOPICAL (18:14)
[2024-11-13] MEDS: NON-FORMULARY ITEM 1 MG PO (19:58)
[2024-11-13] MEDS: ELIQUIS 10 MG PO (19:58)
[2024-11-13] MEDS: TYLENOL 650 MG PO (20:05)
--- NOTE | 2024-11-14 02:58 | DOWNTIME ---
There was a [employer] Client [employer] Downtime on 11/14/2024 from 0100 to 11/14/2023 at 0235 . Downtime documentation of patient's care, including medication administrations, has been reconciled in the electronic record per guidelines. Refer to the
patient's paper chart under the miscellaneous tab to see printed paper medication records and downtime forms.
[2024-11-14 03:45] VITALS: BP 114/52
[2024-11-14 06:23] LABS: % Basophils 0.3 % (0-2); % Eosinophils 7.4 % (0-6); % Immature Granulocytes 0.5 % (0-0.5); % Lymphocytes 23.4 % (20.5-51.1); % Monocytes 16.2 % (1.7-9.3); % Neutrophils 52.2 % (42.2-75.2); Absolute Eosinophils 0.4 10^3/uL (0-0.7); Absolute Lymphocytes 1.4 10^3/uL (1.2-3.4); Absolute Monocytes 0.9 10^3/uL (0.1-0.6); Hematocrit 33.3 % (37.0-47.0); Hemoglobin 11.3 g/dL (12.0-16.0); Mean Corp Hgb Conc. 33.9 g/dL (33.0-37.0); Mean Corpuscular Hgb 31.7 pg (27.0-31.0); Mean Corpuscular Volume 93.3 fL (81.0-99.0); Mean Platelet Volume 8.9 fL (7.4-10.4); Nucleated Red Blood Cells % 0 %; Platelet Count 199 10^3/uL (130-400); Red Blood Cell Count 3.57 10^6/uL (4.20-5.40); Red Cell Dist. Width 11.2 % (11.5-14.5); White Blood Cell Count 5.8 10^3/uL (4.8-10.8)
[2024-11-14 06:58] LABS: Blood Urea Nitrogen 14 mg/dl (7-17); Calcium 9.3 mg/dl (8.4-10.2); Carbon Dioxide 26 mmol/L (22-30); Chloride 102 mmol/L (98-107); Estimated Creatinine Clearance 107 ml/min; Glucose 88 mg/dl (70-99); Potassium 4.5 mmol/L (3.5-5.1); Sodium 135 mmol/L (135-145); eGFR > 60.00
[2024-11-14 07:26] VITALS: BP 97/57
--- NOTE | 2024-11-14 08:20 | W.PN.ONC2 ---
Today's Communication / Plan
-
Stable for discharge on Eliquis from hematology standpoint. Delay chest wall reconstruction until after 3 months of anticoagulation in mid January.
Hematology will sign off.
Impression
Impression
- catheter associated DVT involving left IJ, subclavian vein
- hx of TNBC s/p chemotherapy -> double mastectomy
Plan
Plan
Port-A-Cath has been removed. Eliquis resumed. Standard duration of anticoagulation is 3 months. She understands that breast reconstruction scheduled next week will need to re-scheduled for 3 months from VTE.
Subjective/Objective
Chief Complaint
ACS Heme Onc
Subjective
Port removed. Back on Eliquis. Tells me she has already been seen by hospitalist and is being prepared for discharged
Vital Signs:
Vital Signs
Temp Pulse Resp BP Pulse Ox
97.9 F 78 16 97/57 98
11/14/24 07:26 11/14/24 07:26 11/14/24 07:26 11/14/24 07:26 11/14/24 07:26
Lab Results:
Laboratory Data
WBC 5.8 10^3/uL (4.8-10.8) 11/14/24 05:54
Hgb 11.3 g/dL (12.0-16.0) L 11/14/24 05:54
Plt Count 199 10^3/uL (130-400) 11/14/24 05:54
APTT Cancelled 11/13/24 10:25
eGFR > 60.00 11/14/24 05:54
Physical Exam
HEENT: No Jaundice
Cardiology: S1 and S2
Pulmonary: Clear
GI: Soft
[2024-11-14] MEDS: VITAMIN C 1000 MG PO (08:42)
[2024-11-14] MEDS: NON-FORMULARY ITEM 500 MG PO (08:42)
[2024-11-14] MEDS: ELIQUIS 10 MG PO (08:42)
[2024-11-14] MEDS: TYLENOL 650 MG PO (08:52)
--- NOTE | 2024-11-14 09:02 | CM ---
Reviewed the chart notes. Port was removed yesterday. Oncology has signed off. CM continues to be available to patient/family and is monitoring medical plan for needs at discharge.
Plan: Discharge to home when medically stable. No needs anticipated at this time.
[2024-11-14] MEDS: MIRALAX 17 GRAMS PO (10:04)
--- NOTE | 2024-11-14 10:13 | W.PN.HOSP.TC ---
Today's Communication/Plan
-
dc
Assessment / Plan
Assessment / Plan
Physical Exam
General: Comfortable and Conversant
HEENT: Normocephalic, Anicteric, Moist mucous membranes,
Respiratory: Clear, right upper chest port removed site, no bleeding or swelling
Cardiac: S1/S2 and Regular Rhythm; No Peripheral Edema or Calf Tenderness. Normal peripheral pulse in left and right radial pulse.
GI: Soft, Non Tender, Non Distended, Normal Bowel Sounds
Genito-urinary: No hematuria
Musculoskeletal: No Clubbing, No Cyanosis and No Edema
Skin: Warm and Dry; No Rash or Jaundice
Neuro: AO x 3, No Motor Deficits, Nonfocal/grossly intact, No Slurred Speech, Facial Droop, Tremors or Sedated
Psych: Calm
#DVT left internal jugular vein to LEFT subclavian secondary to left-sided chest wall port
s/p heparin gtt , started oral Eliquis post port removal
Patient has been on Eliquis before. Counseled regarding the medicine and its dose
-Patient follows with Dr. Rodas
Consulted oncology, known to trisha Rivera for Eliquis.
# Hyponatremia, mild, resolved.
# Itching/ in hands/ feet
likely chemo related
Order PRN Benadryl
#Right BREAST TRIPLE NEGATIVE CA IDC Dx February 24, 2024/ Right sentinel node biopsy August 2024
-No IV sticks right arm
-January 2024-status post chemo finished July 2024
-Follows with Dr. Rodas, Dr Medina
#Left breast seroma Dx 11/08/2023 status post drainage in office
-Patient may continue home dose of cefadroxil 500 mg twice daily was to complete 10-day course
#HTN�benign
-Used to be on HCTZ prior to chemotherapy has not been on since summer 2023
#Palpitation Hx
-Continue propranolol 10 mg p.o. twice daily as needed palpitations
#Migraine history-no current headache
#Asthma exercise-induced
-Patient states she has never used an inhaler
# constipation
Given MiraLAX
Full code
Total discharge time spent to see the patient, examine the patient, review data and lab results, discuss discharge plan with patient, nursing staff around 65 minutes
Anticipated Discharge: Today
Subjective/Interval History
-
Date of Service: November 14, 2024
Doing well
Mild discomfort at port site
Objective Data
-
Labs:
Laboratory Results
11/14/24
05:54
WBC 5.8
Hgb 11.3 L
Hct 33.3 L
Plt Count 199
Sodium 135
Potassium 4.5
Chloride 102
Carbon Dioxide 26
BUN 14
Creatinine 0.6
Glucose 88
Calcium 9.3
Vital Signs:
Vital Signs
Temp Pulse Resp BP Pulse Ox
97.9 F 78 16 97/57 98
11/14/24 07:26 11/14/24 07:26 11/14/24 07:26 11/14/24 07:26 11/14/24 07:26
I&O
11/13/24 11/14/24 11/15/24
06:59 06:59 06:59
Intake Total 2670 / 2670 953 / 953
Balance 2670 / 2670 953 / 953
[2024-11-14] MEDS: BENADRYL 25 MG PO (11:08)
--- NOTE | 2024-11-14 11:28 | W.DCSUMMARY ---
Discharge Summary
Discharge Data
Date of Admission: 11/11/24
Date of Discharge: 11/14/24
-
Pending Results: No
Hospital Course
49 years old female with history of history of early stage triple negative breast cancer s/p chemotherapy -> double mastectomy w/ expanders 09/08/24 and left-sided chest port presented to the ER for worsening left-sided neck swelling with known
left internal jugular vein to left subclavian deep venous thrombus. She was started on Eliquis before presentation. She reported swelling to her left neck with a strange pain rating down her left arm associated with shortness of breath with
minimal exertion. She was sent in by her oncologist for recommendation of IV heparin drip and removal of left-sided chest port. The patient developed a left breast seroma from current tissue expanders present. She had the seroma drained by her
surgeon Dr Alves , was on cefadroxil 500 mg to complete a course of 10-day therapy. CT chest negative for PE. She had no prior hx of VTE. Patient was evaluated by oncology. Recommended to remove port and resume Eliquis treatment. Patient was
seen by Dr. Alves, port removed on 11/13 with no complications. Patient was started on Eliquis. She remained hemodynamically stable and was discharged home in a stable condition.
Discharge Plan
-
Patient Disposition: Home (Routine Discharge)
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
You were started on Eliquis, loading dose for 7 days then 5 mg. Last day of loading dose a.m. dose of /. Delay chest wall reconstruction until after 3 months of anticoagulation in mid Jan, 2025.
-Port removed 11/13/24.
Diet: As tolerated
Bathing Restrictions: after 3 days
Wound Care: keep dry and clean, no submerge in pool or bath tub
Referrals:
Delilah Alves MD [Active] - in less than 1 week
Sands,Keeley A., MILITARY ADMINISTRATIVE TECHNICIAN [Family Provider] -
Prescriptions:
New
Eliquis 5 mg tablet
10 mg PO BID Qty: 14 0RF
Rx Instructions:
Last dose of 10 mg dose on 11/20 dose
Eliquis 5 mg tablet
5 mg PO BID Qty: 30 0RF
Rx Instructions:
Starts this dose on 11/21
Continued
acetaminophen 500 mg Tablet
1,000 mg PO Q6HPRN PRN (Reason: mild pain)
propranolol 10 mg Tablet
10 mg PO BID PRN (Reason: palpatations)
ascorbic acid (vitamin C) [Vitamin C] 1,000 mg Tablet
1 g PO DAILY
hydrocortisone 2.5 % Cream
1 applic TOPICAL NOON
hydroxyzine HCl 25 mg Tablet
25 mg PO BIDPRN PRN (Reason: itching)
cefadroxil 500 mg capsule
500 mg PO BID Qty: 42 0RF
Rx Instructions:
Last dose on 11/18.
Discontinued
Eliquis 5 mg Tablet
10 mg PO BID
Discharge Orders:
Discharge Patient (As Directed); Ordered 11/14/24
Ordered By: Elaine Omer
Discharge Date and Time
Discharge Date/Time: 11/14/24 12:35
Print Language: [place]
--- NOTE | 2024-11-14 12:28 | PTCARENOTE ---
pt aaox3. states mild pain in left neck chest wall area. tylenol given as ordered. pt ambulates in room. discharge instructions given reviewed wound care and need for follow up.
[2024-11-14 12:30] VITALS: BP 102/54
== END 2024-11-14 12:35 | disposition home or self-care (01) | DRG 315 ==
LOC: 2 SOUTH 22:23
PROVIDERS: Clinical Nurse Specialist Family Health; Nurse Practitioner Acute Care; Physician Assistant; Surgery; ADMITTING PHYSICIAN Internal Medicine; ATTENDING PHYSICIAN Internal Medicine; EMERGENCY PHYSICIAN Emergency Medicine; FAMILY PHYSICIAN Nurse Practitioner Adult Health; OTHER PHYSICIAN Internal Medicine Hematology & Oncology
PROC: 05PY33Z Removal of Infusion Device from Upper Vein, Percutaneous Approach (ICD-10-PCS; 2024-11-13)
PROC: 0JPT0WZ Removal of Totally Implantable Vascular Access Device from Trunk Subcutaneous Tissue and Fascia, Open Approach (ICD-10-PCS; 2024-11-13)
DX: T82.868A Thrombosis due to vascular prosthetic devices, implants and grafts, initial encounter (principal); E87.1 Hypo-osmolality and hyponatremia; I82.C12 Acute embolism and thrombosis of left internal jugular vein; I82.B12 Acute embolism and thrombosis of left subclavian vein; M96.843 Postprocedural seroma of a musculoskeletal structure following other procedure; I10 Essential (primary) hypertension; J45.909 Unspecified asthma, uncomplicated; B00.9 Herpesviral infection, unspecified; C50.911 Malignant neoplasm of unspecified site of right female breast; G43.909 Migraine, unspecified, not intractable, without status migrainosus; Z92.21 Personal history of antineoplastic chemotherapy; Z90.13 Acquired absence of bilateral breasts and nipples; Z88.0 Allergy status to penicillin; Z85.3 Personal history of malignant neoplasm of breast; Z79.899 Other long term (current) drug therapy; Y71.2 Prosthetic and other implants, materials and accessory cardiovascular devices associated with adverse incidents
CPT/HCPCS: 71275; 80048; 84703; 85025; 85379; 85730; 93005; 93971; 96361; 96374; 99285; Q9967

== ENCOUNTER → 2024-12-25 09:43 | Outpatient (REF) | payer OTHER, SELFPAY ==
[2024-12-25 10:31] LABS: % Basophils 0.5 % (0-2); % Lymphocytes 36.9 % (20.5-51.1); % Monocytes 15.8 % (1.7-9.3); % Neutrophils 39.8 % (42.2-75.2); Absolute Eosinophils 0.3 10^3/uL (0-0.7); Absolute Lymphocytes 1.4 10^3/uL (1.2-3.4); Absolute Monocytes 0.6 10^3/uL (0.1-0.6); Absolute Neutrophils 1.5 10^3/uL (1.4-6.5); Hematocrit 35.3 % (37.0-47.0); Hemoglobin 11.8 g/dL (12.0-16.0); Mean Corp Hgb Conc. 33.4 g/dL (33.0-37.0); Mean Corpuscular Hgb 30.6 pg (27.0-31.0); Mean Corpuscular Volume 91.7 fL (81.0-99.0); Mean Platelet Volume 9.3 fL (7.4-10.4); Nucleated Red Blood Cells % 0 %; Platelet Count 191 10^3/uL (130-400); Red Blood Cell Count 3.85 10^6/uL (4.20-5.40); White Blood Cell Count 3.7 10^3/uL (4.8-10.8)
[2024-12-25 11:01] LABS: ALT (SGPT) 18 U/L (0-35); AST (SGOT) 25 U/L (14-36); Albumin 4.2 g/dl (3.5-5.0); Alkaline Phosphatase 108 U/L (38-126); Blood Urea Nitrogen 13 mg/dl (7-17); Calcium 10.1 mg/dl (8.4-10.2); Carbon Dioxide 27 mmol/L (22-30); Chloride 106 mmol/L (98-107); Glucose 91 mg/dl (70-99); Potassium 4.1 mmol/L (3.5-5.1); Sodium 141 mmol/L (135-145); Total Bilirubin 0.6 mg/dl (0.2-1.3); Total Protein 6.8 g/dl (6.3-8.2); eGFR > 60.00
== END ==
LOC: REG 09:43
PROVIDERS: ATTENDING PHYSICIAN Internal Medicine Hematology & Oncology
DX: C50.511 Malignant neoplasm of lower-outer quadrant of right female breast (principal); K62.5 Hemorrhage of anus and rectum; R00.2 Palpitations
CPT/HCPCS: 36415; 80053; 85025

== ENCOUNTER → 2024-12-26 13:50 | Outpatient (REF) | payer OTHER, SELFPAY | LOC: RCS 13:50 | PROVIDERS: ATTENDING PHYSICIAN Internal Medicine; FAMILY PHYSICIAN Nurse Practitioner Adult Health; REFERRING PHYSICIAN Internal Medicine Hematology & Oncology | DX: R06.02 Shortness of breath (principal); R07.9 Chest pain, unspecified; R00.0 Tachycardia, unspecified | CPT/HCPCS: 93306; 93356 ==

== ENCOUNTER → 2025-02-13 08:38 | Outpatient (REF) | payer OTHER, SELFPAY | LOC: RAD 08:38 | PROVIDERS: ATTENDING PHYSICIAN Internal Medicine Hematology & Oncology; FAMILY PHYSICIAN Nurse Practitioner Adult Health; OTHER PHYSICIAN Surgery Plastic and Reconstructive Surgery; REFERRING PHYSICIAN Surgery | DX: K62.5 Hemorrhage of anus and rectum (principal); C50.511 Malignant neoplasm of lower-outer quadrant of right female breast; R00.2 Palpitations | CPT/HCPCS: 93971 ==

== ENCOUNTER → 2025-02-15 09:27 | Outpatient (REF) | payer OTHER, SELFPAY | LOC: WDC 09:27 | PROVIDERS: ATTENDING PHYSICIAN Surgery Plastic and Reconstructive Surgery; FAMILY PHYSICIAN Nurse Practitioner Adult Health | DX: N63.10 Unspecified lump in the right breast, unspecified quadrant (principal) | CPT/HCPCS: 76642 ==

== ENCOUNTER → 2025-03-06 06:12 | Day surgery (SDC) | payer OTHER, SELFPAY ==
[2025-03-01 09:09] LABS: Hematocrit 37.8 % (37.0-47.0); Hemoglobin 12.7 g/dL (12.0-16.0); Mean Corp Hgb Conc. 33.6 g/dL (33.0-37.0); Mean Corpuscular Hgb 30.2 pg (27.0-31.0); Mean Platelet Volume 9.2 fL (7.4-10.4); Platelet Count 178 10^3/uL (130-400); Red Cell Dist. Width 13.2 % (11.5-14.5); White Blood Cell Count 4.7 10^3/uL (4.8-10.8)
[2025-03-01 10:09] LABS: ALT (SGPT) 18 U/L (0-35); AST (SGOT) 24 U/L (14-36); Albumin 4.2 g/dl (3.5-5.0); Alkaline Phosphatase 96 U/L (38-126); Blood Urea Nitrogen 17 mg/dl (7-17); Carbon Dioxide 31 mmol/L (22-30); Chloride 108 mmol/L (98-107); Glucose 87 mg/dl (70-99); Potassium 4.6 mmol/L (3.5-5.1); Sodium 142 mmol/L (135-145); Total Bilirubin 0.5 mg/dl (0.2-1.3); eGFR > 60.00
[2025-03-01 14:06] VITALS: BMI 27.5
[2025-03-06] VITALS (9 sets, daily range): BP systolic 119–135; BP diastolic 66–80; BMI 27.5
[2025-03-06] MEDS: NORMOSOL-R/PLASMALYTE-A 1000 IV (10:23)
[2025-03-06] MEDS: TYLENOL 1000 MG PO (10:53)
[2025-03-06] MEDS: LOVENOX 40 MG SC (10:53)
[2025-03-06] MEDS: DILAUDID 0.25 MG IV ×2 (13:33→13:48)
--- NOTE | 2025-03-06 13:49 | W.IMMPOSTOP ---
Surgical Immed Post Op Note
-
Primary Surgeon: NUZHAT Crawley MD
Assisting Surgeon:
Pre-op Diagnosis: History of breast cancer, status post bilateral mastectomies
Post-op Diagnosis: Same
Procedure Performed: Delayed insertion of left tissue orthopedic surgeon
Anesthesia Type: General
Specimen / Cultures: None
Estimated Blood Loss: 10 cc
Complications: None
Operative Findings: As expected
--- NOTE | 2025-03-06 13:50 | OR.RPT ---
Operative Report
Operative Report
Date of surgery: 03/06/2025
Surgeon: NUZHAT Crawley MD
Preoperative diagnosis:
1. History of breast cancer
2. History of surgically acquired absence of bilateral breasts
Postoperative diagnosis: Same
Procedure:
1. Insertion of left tissue certified orthotist for breast reconstruction
2. Revision of the left reconstructed breast
Anesthesia: General
Complications: None
EBL: 10 cc
Specimens: None
Implants: 13 cm Sientra certified orthotist
Indications for procedure: Patient is a 50-year-old female known to me for history of breast cancer status post bilateral mastectomies and immediate reconstruction with tissue expanders. She developed delayed wound healing and recurrent seromas of
the left breast. This resulted in requiring explant of the left tissue certified orthotist. Of note she also had a clot at her port requiring prolonged anticoagulation. She desires autologous reconstruction. After period of healing and no evidence of
infection, she would like to proceed with expansion of the left breast skin in preparation for final reconstruction. Risk reviewed at length. Consents were signed accordingly.
Procedure in detail: Patient was identified preoperatively and the surgical site was confirmed to be the left breast. All questions were answered and consents were confirmed. Patient was taken back to the operative room placed supine on table.
Anesthesia was induced and the patient was prepped and draped in the usual sterile fashion using ChloraPrep solution. Timeout for patient was performed was confirmed that preoperative antibiotics administered and bilateral SCDs were in place.
Preoperative Lovenox and been administered well. Procedure began with the injection 1% lidocaine with epinephrine in the left mastectomy skin. The prior scar was marked out for excision and 15 blade was used accordingly. Dissection continued down
to the pectoralis fascia using Bovie electrocautery. The revision of the reconstructed breast was performed by elevating and substantially modifying the mastectomy skin flaps with Bovie electrocautery and relaxing capsulotomies. The pocket was
then created along the pectoralis fashion to accommodate the 13 cm certified orthotist for symmetry to her right side. Meticulous hemostasis was ensured and then deep Marcaine blocks were placed in the pectoralis fashion. The certified orthotist was slightly inflated
to 80 cc after removing the air and this was placed into the pocket. A 2-0 silk was used to suture fixate the certified orthotist into place. Double antibiotic solution and dilute Betadine were then used to irrigate the pocket thoroughly. The wound was then
closed in multiple layers using heavy Vicryl deep followed by 3-0 and 4-0 Monocryl. Patient tolerated the procedure well, was performed out complication. All counts were correct at the end the case.
== END ==
LOC: SDS 06:12
PROVIDERS: ATTENDING PHYSICIAN Surgery Plastic and Reconstructive Surgery; FAMILY PHYSICIAN Nurse Practitioner Adult Health
DX: Z42.1 Encounter for breast reconstruction following mastectomy (principal); Z85.3 Personal history of malignant neoplasm of breast; Z90.13 Acquired absence of bilateral breasts and nipples
CPT/HCPCS: 19357; 19380; 80053; 85027; 93005; C1789; L8000

== ENCOUNTER → 2025-04-05 08:25 | Outpatient (REF) | payer OTHER, SELFPAY ==
[2025-04-05 09:11] LABS: Hematocrit 39.4 % (37.0-47.0); Hemoglobin 12.9 g/dL (12.0-16.0); Mean Corp Hgb Conc. 32.7 g/dL (33.0-37.0); Mean Corpuscular Volume 89.5 fL (81.0-99.0); Nucleated Red Blood Cells % 0 %; Platelet Count 186 10^3/uL (130-400); Red Cell Dist. Width 13.0 % (11.5-14.5)
[2025-04-05 09:33] LABS: ALT (SGPT) 20 U/L (0-35); AST (SGOT) 24 U/L (14-36); Albumin 4.2 g/dl (3.5-5.0); Alkaline Phosphatase 104 U/L (38-126); Blood Urea Nitrogen 18 mg/dl (7-17); Calcium 9.5 mg/dl (8.4-10.2); Carbon Dioxide 26 mmol/L (22-30); Chloride 108 mmol/L (98-107); Glucose 90 mg/dl (70-99); Potassium 4.4 mmol/L (3.5-5.1); Sodium 139 mmol/L (135-145); Total Protein 6.9 g/dl (6.3-8.2); eGFR > 60.00
== END ==
LOC: REG 08:25
PROVIDERS: ATTENDING PHYSICIAN Internal Medicine Hematology & Oncology; FAMILY PHYSICIAN Nurse Practitioner Adult Health; REFERRING PHYSICIAN Surgery
DX: C50.511 Malignant neoplasm of lower-outer quadrant of right female breast (principal); K62.5 Hemorrhage of anus and rectum; R00.2 Palpitations
CPT/HCPCS: 36415; 80053; 85025

== ENCOUNTER → 2025-06-06 06:54 | Outpatient (REF) | payer OTHER, SELFPAY | LOC: RAD 06:54 | PROVIDERS: ATTENDING PHYSICIAN Internal Medicine Hematology & Oncology; FAMILY PHYSICIAN Nurse Practitioner Adult Health; OTHER PHYSICIAN Nurse Practitioner Adult Health | DX: T82.868D Thrombosis due to vascular prosthetic devices, implants and grafts, subsequent encounter (principal); E04.1 Nontoxic single thyroid nodule; C50.511 Malignant neoplasm of lower-outer quadrant of right female breast; K62.5 Hemorrhage of anus and rectum; R00.2 Palpitations | CPT/HCPCS: 76536; 93971 ==

== ENCOUNTER → 2025-06-28 07:22 | Outpatient (REF) | payer OTHER, SELFPAY | LOC: RCS 07:22 | PROVIDERS: ATTENDING PHYSICIAN Internal Medicine; FAMILY PHYSICIAN Nurse Practitioner Adult Health; OTHER PHYSICIAN Internal Medicine Hematology & Oncology; OTHER PHYSICIAN Surgery; REFERRING PHYSICIAN Surgery Plastic and Reconstructive Surgery | DX: C50.511 Malignant neoplasm of lower-outer quadrant of right female breast (principal); Z17.1 Estrogen receptor negative status [ER-]; I10 Essential (primary) hypertension; T45.1X5D Adverse effect of antineoplastic and immunosuppressive drugs, subsequent encounter | CPT/HCPCS: 93306; 93356 ==

== ENCOUNTER 2025-07-24 06:03 | Inpatient (IN) | payer OTHER, SELFPAY ==
[2025-07-10 09:04] LABS: Hematocrit 40.2 % (37.0-47.0); Hemoglobin 13.3 g/dL (12.0-16.0); Mean Corp Hgb Conc. 33.1 g/dL (33.0-37.0); Mean Corpuscular Volume 90.7 fL (81.0-99.0); Nucleated Red Blood Cells % 0 %; Platelet Count 202 10^3/uL (130-400); Red Cell Dist. Width 13.0 % (11.5-14.5)
[2025-07-10 09:46] LABS: ALT (SGPT) 19 U/L (0-35); AST (SGOT) 22 U/L (14-36); Albumin 4.0 g/dl (3.5-5.0); Alkaline Phosphatase 109 U/L (38-126); Blood Urea Nitrogen 19 mg/dl (7-17); Calcium 9.6 mg/dl (8.4-10.2); Carbon Dioxide 28 mmol/L (22-30); Chloride 107 mmol/L (98-107); Glucose 88 mg/dl (70-99); Potassium 4.8 mmol/L (3.5-5.1); Sodium 140 mmol/L (135-145); Total Protein 6.7 g/dl (6.3-8.2); eGFR > 60.00
[2025-07-10 14:11] VITALS: BMI 30.6
[2025-07-24] VITALS (22 sets, daily range): BP systolic 109–140; BP diastolic 51–86; BMI 30.6; BMI 31.5
[2025-07-24] MEDS: LOVENOX 40 MG SC (07:16)
[2025-07-24] MEDS: NORMOSOL-R/PLASMALYTE-A 1000 IV (07:16)
--- NOTE | 2025-07-24 16:03 | W.IMMPOSTOP ---
Surgical Immed Post Op Note
-
Primary Surgeon: NUZHAT Crawley MD
Assisting Surgeon: Liseth Simental MD
Pre-op Diagnosis: History of breast cancer status post bilateral mastectomy
Post-op Diagnosis: Same
Procedure Performed: Bilateral DIMITRI flap breast reconstruction
Anesthesia Type: General
Specimen / Cultures: Per Dr. Alves
Estimated Blood Loss: 150 cc
Complications: None
Operative Findings: As expected
--- NOTE | 2025-07-24 16:03 | OR.RPT ---
Operative Report
Operative Report
Date of Service: 06/26/25
Surgeon: Jocelyn Crawley MD
Cardiac Exercise Specialist/Cosurgeon: Liseth Simental MD
Second Environmental Health Sanitarian: Delilah Alves MD
Pre-op diagnosis:
1.� Personal history of breast cancer
2. Status post bilateral mastectomies
Postop diagnosis: Same
Procedure:
1. Bilateral breast reconstruction with DIMITRI flaps
2.� Removal of bilateral tissue expanders without replacement
3. Bilateral capsulotomies
4.� Bilateral internal mammary lymph node biopsy
5. Application of disposable negative pressure incisional wound VAC
Anesthesia: General
EBL: 150 cc
Specimens:
1.� Right internal mammary lymph node
2.� Left internal mammary lymph node
Drains: 4 15 [place] Jesús drains
Complications: none
Indications:
This is a 50-year-old female with a past medical history significant for right breast cancer with skin sparing mastectomies and electronic court recorder based reconstruction. This was complicated by loss and replacement of her left breast electronic court recorder. She was now
interested in moving forward with autologous reconstruction. Given the anticipated bilateral DIMITRI flap breast reconstruction, I asked Dr. Simental to be involved in her care given the complexity of the case and the need for a second surgeon to do this
as safely and efficiently as possible.
Regarding bilateral free flap breast reconstruction,� she understood the nature of the surgery and all of the risk benefits alternatives were discussed at length.� Specific risks included flap failure or thrombosis, hematoma, seroma, poor wound
healing and compromise to the abdominal wall.� All questions were answered and consents were signed.
Operative findings:
The patient was identified in the preoperative area and consents were confirmed. The bilateral breasts were marked out as was the elliptical infraumbilical donor site. All questions were answered. She was brought to the operating room and placed
supine on the operative table.� General anesthesia was induced with an endotracheal tube. The arms were tucked bilaterally and a Romo catheter was placed.� Preoperative Lovenox and antibiotics were administered, and SCDs were placed.� The patient's
bilateral breasts and abdomen were prepped and draped in normal standard fashion using chlorhexidine prep.� A timeout for patient safety was performed.
To start the procedure, Dr. Simental and I were in the abdomen to initiate the dissection of the abdominal flaps. I dissected the right abdominal flap for left breast reconstruction and Dr. Simental worked on the left abdomen for right breast
reconstruction. Dr. Simental assisted me with my portions of the case, and I assisted him with his portions of the case. Please see Dr. Alves and Dr. Simental's separately dictated operative notes. Once I started the intramuscular dissection of his
flap, Dr. Simental went up to the chest to prepare the vessels for microvascular transfer and at this time we began functioning as 2 separate teams.
In the abdomen, bilateral DIMITRI flaps were dissected out. This began with incising the proposed markings superiorly and dissection with a slight bevel upwards to the level of the fascia. Undermining of the supraumbilical flap continue in the midline
above the umbilicus towards the xiphoid. The patient was then flexed at the waist and the lower incision was confirmed to be tenable without undue tension. The patient was returned supine and the lower marking was incised with a 10 blade. The flaps
were then raised laterally to medially be sure to maintain the perforating vessels above the level of the fascia.� On the right side a 4 dependency case manager DIMITRI flap was dissected out.� Similarly on the left side a 5 dependency case manager DIMITRI flap had been dissected
out.�This involved a tedious intramuscular dissection to minimize the amount of muscle harvested with the flap. The pedicles were dissected down to level of the iliac vessels.
In the chest, the bilateral expanders were removed through vertical incisions. These were discarded. There was extensive capsulotomies performed bilaterally. The cartilaginous portion of the 3rd rib was then resected bilaterally and the underlying
internal mammary vessels were then meticulously and carefully dissected.�Internal mammary lymph nodes were encountered bilaterally and this was excised and sent off for pathologic evaluation. Once the vessels were fully dissected circumferentially
these were allowed to dilate up while attention was turned to the contralateral breast.� A pectoralis block was then performed with marcaine and a 15 [place] Jesús drain was placed through a stab incision the lateral IMF.� This was secured using a
2-0 Prolene suture.
The right hemiabdominal flap was then transferred up to the left chest first. The microvascular anastomosis was then performed.� This was done using a 2.5mm deli/bakery associate for the venous anastomosis.� The arterial anastomosis was performed with a handsewn
technique using 8-0 nylon suture.� Upon removal of the microvascular clamps there was excellent perfusion of the flap without any signs of venous or arterial insufficiency.� The flap was then temporarily inset with lu and attention was turned
to the contralateral side.
The left hemiabdominal flap was then transferred up to the right chest.� The microvascular anastomosis was similarly performed.� On this side a 4.0mm deli/bakery associate was again utilized for the venous anastomosis.� The arterial anastomosis was performed in
the same fashion as the contralateral side.� Again there was excellent perfusion noted upon removal of the vascular clamps.
While the microvascular anastomoses were being performed, Dr. Alves was performing the abdominal wall reconstruction.� Again please see her separately dictated operative report for details. Briefly, this involved reapproximation of the muscles
that was divided.� A small piece of Phasix mesh was inset as a underlay with primary fascial closure.� The fascia was closed with interrupted PDS sutures and PDS Stratafix suture. The patient also had an umbilical hernia that was corrected.�
A TAP block was performed bilaterally for postoperative analgesia.� Two 15 [place] Jesús drains were placed in the abdomen.� These were similarly secured using 2-0 Prolene sutures.� The abdominal wall was then closed in a layered fashion.� 2-0 Vicryl
suture was utilized in the Chencho's fascia.� The Insorb dermal stapler was then utilized for reapproximation of the deep dermis.� The superficial skin was then closed using 4-0 Monocryl suture.� The umbilicus was transposed.� This was inset using a
combination of 3-0 Monocryl in the deep dermis and 5-0 nylon suture superficially. A MIGDALIA incisional wound VAC was applied superficially to maximize wound healing.
The DIMITRI flaps were then inset. The skin was then closed in a layered fashion using 3-0 and 4-0 Monocryl suture.� The DIMITRI flaps were de-epithelialized in all areas that would not be exposed prior to closure.
Doppler signals were identified on both skin islands and there was good punctate bleeding at time of deepithelialization. Signals were marked with 5-0 prolenes.
The wounds were then all dressed and the patient was extubated uneventfully.� All counts were correct at the the completion of the case.� The patient tolerated the procedure very well.�The patient was then transferred to the ICU for
postoperative�monitoring.
I was the primary surgeon for the left DIMITRI flap breast reconstruction and Dr. Simental was the primary surgeon for the right side. I assisted him in all aspects of his surgery and he assisted me throughout my procedure and we functioned as cosurgeons
throughout the case so that we could operate in 2 separate surgical zeng at all times to maximize safety and efficiency.
Dr. Delilah Alves was our second teachers assistant for this case.� Her assistance was critical and medically necessary to allow us to perform this in a safe and timely manner for this patient.� She assisted with retraction, execution, and closure of this
case. She also was responsible for the abdominal wall reconstruction as a primary surgeon.
--- NOTE | 2025-07-24 16:32 | OR.RPT ---
Addendum entered and electronically signed by Liseth Simental MD 07/24/25 16:52:
Correct Date of Service is 07/24/25
Original Note:
Operative Report
Operative Report
Date of Service: 06/26/25
Surgeon: Liseth Simental MD
Wire Coiler Machine Operator/Cosurgeon: Jocelyn Crawley MD
Second Social Insurance Administrator: Delilah Alves MD
Pre-op diagnosis:
1.� Personal history of breast cancer
2. Status post bilateral mastectomies
Postop diagnosis: Same
Procedure:
1. Bilateral breast reconstruction with DIMITRI flaps
2.� Removal of bilateral tissue expanders without replacement
3. Bilateral capsulotomies
4.� Bilateral internal mammary lymph node biopsy
5. Application of disposable negative pressure incisional wound VAC
Anesthesia: General
EBL: 150 cc
Specimens:
1.� Right internal mammary lymph node
2.� Left internal mammary lymph node
Drains: 4 15 [place] Jesús drains
Complications: none
Indications:
This is a 50-year-old female with a past medical history significant for right breast cancer with skin sparing mastectomies and fashion buyer based reconstruction. This was complicated by loss and replacement of her left breast fashion buyer. She was now
interested in moving forward with autologous reconstruction. Given the anticipated bilateral DIMITRI flap breast reconstruction, I was asked to be involved in her care given the complexity of the case and the need for a second surgeon to do this as
safely and efficiently as possible.
Regarding bilateral free flap breast reconstruction,� she understood the nature of the surgery and all of the risk benefits alternatives were discussed at length.� Specific risks included flap failure or thrombosis, hematoma, seroma, poor wound
healing and compromise to the abdominal wall.� All questions were answered and consents were signed.
Operative findings:
The patient was identified in the preoperative area and consents were confirmed. The bilateral breasts were marked out as was the elliptical infraumbilical donor site. All questions were answered. She was brought to the operating room and placed
supine on the operative table.� General anesthesia was induced with an endotracheal tube. The arms were tucked bilaterally and a Romo catheter was placed.� Preoperative Lovenox and antibiotics were administered, and SCDs were placed.� The patient's
bilateral breasts and abdomen were prepped and draped in normal standard fashion using chlorhexidine prep.� A timeout for patient safety was performed.
To start the procedure, Dr. Crawley and I were in the abdomen to initiate the dissection of the abdominal flaps. I dissected the left abdominal flap for right breast reconstruction and Dr. Crawley worked on the right abdomen for left breast
reconstruction. Dr. Crawley assisted me with my portions of the case, and I assisted him with his portions of the case. Please see Dr. Alves and Dr. Crawley's separately dictated operative notes. Once Dr. Crawley started the intramuscular dissection
of his flap, I went up to the chest to prepare the vessels for microvascular transfer and at this time we began functioning as 2 separate teams.
In the abdomen, bilateral DIMITRI flaps were dissected out. This began with incising the proposed markings superiorly and dissection with a slight bevel upwards to the level of the fascia. Undermining of the supraumbilical flap continue in the midline
above the umbilicus towards the xiphoid. The patient was then flexed at the waist and the lower incision was confirmed to be tenable without undue tension. The patient was returned supine and the lower marking was incised with a 10 blade. The flaps
were then raised laterally to medially be sure to maintain the perforating vessels above the level of the fascia.� On the right side a 4 washer engineer helper DIMITRI flap was dissected out.� Similarly on the left side a 5 washer engineer helper DIMITRI flap had been dissected
out.�This involved a tedious intramuscular dissection to minimize the amount of muscle harvested with the flap. The pedicles were dissected down to level of the iliac vessels.
In the chest, the bilateral expanders were removed through vertical incisions. These were discarded. There was extensive capsulotomies performed bilaterally. The cartilaginous portion of the 3rd rib was then resected bilaterally and the underlying
internal mammary vessels were then meticulously and carefully dissected.�Internal mammary lymph nodes were encountered bilaterally and this was excised and sent off for pathologic evaluation. Once the vessels were fully dissected circumferentially
these were allowed to dilate up while attention was turned to the contralateral breast.� A pectoralis block was then performed with marcaine and a 15 [place] Jesús drain was placed through a stab incision the lateral IMF.� This was secured using a
2-0 Prolene suture.
The right hemiabdominal flap was then transferred up to the left chest first. The microvascular anastomosis was then performed.� This was done using a 2.5mm roadway engineer for the venous anastomosis.� The arterial anastomosis was performed with a handsewn
technique using 8-0 nylon suture.� Upon removal of the microvascular clamps there was excellent perfusion of the flap without any signs of venous or arterial insufficiency.� The flap was then temporarily inset with lu and attention was turned
to the contralateral side.
The left hemiabdominal flap was then transferred up to the right chest.� The microvascular anastomosis was similarly performed.� On this side a 4.0mm roadway engineer was again utilized for the venous anastomosis.� The arterial anastomosis was performed in
the same fashion as the contralateral side.� Again there was excellent perfusion noted upon removal of the vascular clamps.
While the microvascular anastomoses were being performed, Dr. Alves was performing the abdominal wall reconstruction.� Again please see her separately dictated operative report for details. Briefly, this involved reapproximation of the muscles
that was divided.� A small piece of Phasix mesh was inset as a underlay with primary fascial closure.� The fascia was closed with interrupted PDS sutures and PDS Stratafix suture. The patient also had an umbilical hernia that was corrected.�
A TAP block was performed bilaterally for postoperative analgesia.� Two 15 [place] Jesús drains were placed in the abdomen.� These were similarly secured using 2-0 Prolene sutures.� The abdominal wall was then closed in a layered fashion.� 2-0 Vicryl
suture was utilized in the Chencho's fascia.� The Insorb dermal stapler was then utilized for reapproximation of the deep dermis.� The superficial skin was then closed using 4-0 Monocryl suture.� The umbilicus was transposed.� This was inset using a
combination of 3-0 Monocryl in the deep dermis and 5-0 nylon suture superficially. A MIGDALIA incisional wound VAC was applied superficially to maximize wound healing.
The DIMITRI flaps were then inset. The skin was then closed in a layered fashion using 3-0 and 4-0 Monocryl suture.� The DIMITRI flaps were de-epithelialized in all areas that would not be exposed prior to closure.
Doppler signals were identified on both skin islands and there was good punctate bleeding at time of deepithelialization. Signals were marked with 5-0 prolenes.
The wounds were then all dressed and the patient was extubated uneventfully.� All counts were correct at the the completion of the case.� The patient tolerated the procedure very well.�The patient was then transferred to the ICU for
postoperative�monitoring.
I was the primary surgeon for the right DIMITRI flap breast reconstruction and Dr. Fredrick Crawley was the primary surgeon for the left side. I assisted him in all aspects of his surgery and he assisted me throughout my procedure and we functioned as
cosurgeons throughout the case so that we could operate in 2 separate surgical zeng at all times to maximize safety and efficiency.
Dr. Delilah Alves was our second medication assistant for this case.� Her assistance was critical and medically necessary to allow us to perform this in a safe and timely manner for this patient.� She assisted with retraction, execution, and closure of this
case. She also was responsible for the abdominal wall reconstruction as a primary surgeon.
--- NOTE | 2025-07-24 16:32 | OR.RPT ---
Operative Report
Operative Report
Date of Procedure: 07/24/25
Surgeon: Long
Preoperative DX: Right breast carcinoma
Postoperative DX: right breast carcinoma
Procedure: Bilateral mammotomies, removal of tissue expanders bilaterally, repair surgically acquired bilateral ventral hernias.
The patient is a 50 Y/O female who previously underwent bilateral mastectomies for the treatment of left breast carcinoma. She presents now for bilateral DIMITRI flaps performed by Drs. Simental and Misbah. I was present throughout the entire case to
second assist and perform the mammotomies, removal of bilateral expanders, and repair of bilateral surgically-acquired ventral wall hernias as the Plastic Surgeons are not credentialled in General Surgery. After general anesthesia was induced, a
graham catheter was placed using aseptic technique. The abdomen and chest were prepped and draped in the usual sterile fashion. An appropriate time out procedure was performed by all team members and Plastic surgery began harvesting the abdominal
wall flaps. I then performed bilateral mastotomies and removed the implants. A capsulotomy was performed on the right side.Hemostatis was verified and moist packs were placed in the wound cavities.
After the tissue flaps were harvested, two abdominal wall defects in the anterior abdominal wall had been created both measuring 3 x 20m. Two portions of Phasix mesh cut to the bilateral defect size of were fashioned and placed under the anterior
rectus abdominis muscle sheath on each side. Then the anterior abdominal wall fascia was reapproximated with interupted figure of eight 0-Maxon suture. Then an 0-Stratifix suture was used to oversew the repairs on both sides. Bilateral drains were
placed and secured using 2-O PDS suture. Bilateral blocks were performed using .25% marcaine plain. Chencho's fascia was closed using 2-0 Polysorb. Ensorb lu were used to close subcutaneous tissue and then skin was closed with a running 4-O
V-lock suture.
The remaining soft tissue and skin closure was performed as described in the Plastic Surgical dictation.
([id number]) [id number]
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
--- NOTE | 2025-07-24 17:45 | PTCARENOTE ---
Pt arrived to ICU on bed, from OR. Report received from OR nurse. Pt awake, oriented x3, able to VERGARA bilat. HR SR, BP stable [id number]. All pedal pulses palp. Bilat DIMITRI surg, Bilat breast dimitri with + doppler pulses, checked q 15 mins, wound,
sutures and drsg intact. Mid abd horizontal incision with dry drsg intact. 4 JPs to bulb suction present, R and L upper and lower abd, labeled A,B,C,D, all draining serous sang drainage. R arm sore from BP cuf on in OR, red lilibeth noted. R rad pulse
present. SPECIMEN PROCESSOR and anesthesia shown and aware. Bilat arms elevated on pillow, beach chair position. seq teds on bilat. Sagar hugger applied. Pt was on 5L simple mask, 97% sat, changed to R/A. O2 sat now 97%. lobes clear. Romo cath intact, draining
mod amt yellow urine. Dr Crawley and Dr Alves to room and assessed pt., surg incs and + doppler pulses. Dr Crawley shown R arm, and elevated on pillow. Pt able to move arm with sl discomfort. IVF LR at 125 ml/hr hung. Pt able to drink cler liq diet
for dinner, but just wants water at this time. Complete CHG bath and mouth care done.
[2025-07-24] MEDS: LR 1000 IV (18:00)
[2025-07-24] MEDS: NEURONTIN 300 MG PO ×2 (18:00→21:00)
[2025-07-24] MEDS: VALIUM 5 MG PO ×2 (18:00→21:00)
--- NOTE | 2025-07-24 18:00 | PTCARENOTE ---
Mid abd MIGDALIA drain intact, blinking yellow, Dr Crawley shown and OK with yellow blinking.
--- NOTE | 2025-07-24 18:58 | PTCARENOTE ---
I/S done with pt, she is able to reach 1000 TV. Pt's mother and updated and in to visit pt.
[2025-07-24] MEDS: ULTRAM 100 MG PO (20:20)
[2025-07-24] MEDS: TYLENOL 1000 MG PO (21:00)
--- NOTE | 2025-07-24 21:29 | PTCARENOTE ---
Received pt from previous RN. Pt is AAOx3. Sagar hugger was in place then turned off for temp > 100.3. Pt is NSR on the monitor. Pt on RA O2 sat 96%, lungs clear, pt using the I.S. Romo in place, temp sensing. [address] MIGDALIA dressing c/d/i.
Surgical sites assessed, left breast had a weak signal, right breast with a good signal. Pt in a beach chair position, b/l arms and legs elevated on a pillow. PRN pain medication given for pain in her chest (see MAR). LR infusing at 125 ml/hr. Mouth
care provided. Family at bedside. Call rosado in reach. Safe environment maintained.
--- NOTE | 2025-07-24 21:41 | PTCARENOTE ---
Scheduled Tylenol at 2200, given at 2100 pt had a temp of 100.8. Temp now 101, Dr Crawley notified.
[2025-07-24] MEDS: ANCEF 10 IV (23:40)
[2025-07-25] VITALS (28 sets, daily range): BP systolic 108–152; BP diastolic 47–82; BMI 31.4
--- NOTE | 2025-07-25 01:24 | PTCARENOTE ---
Systems reviewed, no new changes in assessment. B/l breast signals good, warm and soft. Call rosado in reach. Safe environment maintained.
[2025-07-25] MEDS: LR 1000 IV ×3 (01:44→18:12)
[2025-07-25] MEDS: ULTRAM 100 MG PO ×3 (02:52→18:11)
[2025-07-25 03:04] LABS: Hematocrit 32.9 % (37.0-47.0); Hemoglobin 10.7 g/dL (12.0-16.0)
[2025-07-25 03:13] LABS: INR 1.03; PT 14.0 Sec (11.4-14.6)
[2025-07-25 03:14] LABS: APTT 27.6 Sec (23.4-35.0)
--- NOTE | 2025-07-25 03:24 | PTCARENOTE ---
Systems reviewed, no new changes in assessment. AM labs provided. + signals, b/l. CHG bath provided. Call rosado in reach. Safe environment maintained.
[2025-07-25 03:42] LABS: Blood Urea Nitrogen 15 mg/dl (7-17); Calcium 8.2 mg/dl (8.4-10.2); Carbon Dioxide 26 mmol/L (22-30); Chloride 106 mmol/L (98-107); Estimated Creatinine Clearance 109 ml/min; Glucose 112 mg/dl (70-99); Potassium 4.4 mmol/L (3.5-5.1); Sodium 135 mmol/L (135-145); eGFR > 60.00
[2025-07-25] MEDS: COLACE 100 MG PO ×3 (07:49→21:47)
[2025-07-25] MEDS: VALIUM 5 MG PO ×3 (07:49→21:47)
[2025-07-25] MEDS: SENOKOT 8.6 MG PO ×2 (07:49→19:51)
[2025-07-25] MEDS: NEURONTIN 300 MG PO ×3 (07:50→21:47)
[2025-07-25] MEDS: ANCEF 10 IV ×2 (07:50→15:39)
[2025-07-25] MEDS: TYLENOL 1000 MG PO ×4 (07:50→21:47)
--- NOTE | 2025-07-25 08:06 | W.PN.INTV ---
Today's Communication / Plan
Recommendations
out of bed to chair
Start Lovenox per surgery
Assessment
-
50-year-old female with history of stage I breast cancer triple negative diagnosed January 2024, status post bilateral nipple sparing mastectomy August 2025, now with DIMITRI flap 07/24/2025
S/p DIMITRI flap, 07/24/25
History of invasive ductal carcinoma, triple negative, stage I, January 2024
Status post neoadjuvant chemotherapy
Status post nipple sparing mastectomy 09/12/2025
Complicated by recurrent seroma, debridement, requiring antibiotics
Conditions present prior to admission
Hypertension/hyperlipidemia
History of left IJ and subclavian DVT
Secondary to left sided port
Removed October 2024
History of asthma
History of urticaria
Positive PEGGY
History of thyroid nodules
Marijuana use for sleep
Plan/recommendations
At this time, patient is doing well
denies shortness of breath
Chest wall incision appears to be intact, mild oozing
Pulses dopplerable per nursing
LEISA drains in place, mild drainage
Moving forward
Continue with management per surgery
IV fluids
Pain control
Doppler checks
Antibiotics per surgery
Primary service requesting Lovenox to start 07/25 in the a.m.
Patient with history of left IJ and subclavian clot secondary to port placement
CT chest October 2024 negative for pulm embolism
Echocardiogram June 2025 with normal biventricular function, normal pulmonary artery pressure
Bowel regimen as needed
Reviewed with critical care nursing, Pharmacy, respiratory care
Subjective Dataa
Subjective Data
Date of Service:
Date of Service: July 25, 2025
Subjective:
Patient doing well without complaints. Note late entry. Patient seen and examined on 07/25
Objective Data
Data Reviewed
Vital Signs / I&O / Oxygen:
Vital Signs
Temp Pulse Resp BP Pulse Ox
100.4 F H 87 16 120/49 93
07/25/25 07:41 07/25/25 06:00 07/25/25 06:00 07/25/25 06:00 07/25/25 06:00
Intake and Output
07/24/25 07/25/25 07/26/25
06:59 06:59 06:59
Intake Total 1900 / 1900
Output Total 1434 / 1434
Balance 466 / 466
SaO2 93
Nasal Cannula flow liters per 6
minute
Physical Exam
General: Comfortable
HEENT: Normocephalic and Anicteric
Cardiovascular: S1-S2, Regular Rhythm, Murmur (n) and Rub (n)
Respiratory: Wheeze (n), Crackles (n), Rhonchi (n) and Non-Labored Respirations
GI: Soft and Non Distended
Neurology: Awake and Alert
Skin: Cyanosis (n)
Labs/Micro/Reports
Lab Data
07/25/25 02:56
07/25/25 02:56
Laboratory Results
07/25/25
02:56
PT 14.0
INR 1.03
APTT 27.6
--- NOTE | 2025-07-25 08:21 | PTCARENOTE ---
Received pt sleeping.Awakens to voice.Speech is appropriate.+5/5 VERGARA.c/o moderate abdominal pain.Scheduled medications administered.SR noted.IVF infusing as ordered.Bare hugger discontinued as pt reached goal temperature.Lungs CTA.POX 95% on RA.Pt
does not feel hungry,encouraged to eat.Romo draining yellow urine.Skin integrity as documented.Breast flap signal check completed in tandem with outgoing RN.Signals are present.Plans to get oob and discontinue Romo discussed.Pt's at
bedside.
--- NOTE | 2025-07-25 09:00 | PTCARENOTE ---
Abdominal binder applied for pt to get oob to chair.
--- NOTE | 2025-07-25 09:00 | W.PN.PLAS ---
Today's Communication
-
Romo out
Out of bed to chair
Progress Note
Subjective Data
Doing well
Denies shortness of breath
Objective Data
Vital Signs
Temp Pulse Resp BP Pulse Ox
99.1 F 76 15 124/64 95
07/27/25 07:29 07/27/25 06:00 07/27/25 06:00 07/27/25 04:18 07/27/25 04:18
Intake and Output
07/26/25 07/27/25 07/28/25
06:59 06:59 05:59
Intake Total 3940 / 3940 1210 / 1210
Output Total 387 / 387 304 / 304
Balance 3553 / 3553 906 / 906
Intake:
Oral fluids 1940 / 1940 1210 / 1210
IV fluids (Total) 1999
Lr 1,000 ml @ 125 mls/hr IV . 1999
Q8H EMA Rx#:[id number]
Output:
Drain Output (Total) 267 / 267 304 / 304
Left Lower Abdomen [facility] 47 / 47 91 / 91
De La Garza D
Left Upper Abdomen B 68 / 68 58 / 58
Right Lower Abdomen [place]- 94 / 94 113 / 113
De La Garza C
Right Upper A 58 / 58 42 / 42
Urine, Romo 120 / 120
Other:
Number of approximated MODERATE 1 1
amounts of urine
Number of approximated LARGE 1 1
amounts of urine
Physical exam:
No acute distress
No increased work of breathing
Bilateral breast flaps well-perfused in appearance
Doppler signals intact
No evidence of venous congestion
ELISA drain serosanguineous
Lab Results
07/27/25 04:30
07/27/25 04:30
Assessment / Plan
Status post bilateral DIMITRI flap breast reconstruction
Expected postop dilutional and surgical anemia
Free flap protocol postop day 1
SCD/Lovenox
[2025-07-25] MEDS: LOVENOX 40 MG SC (10:01)
--- NOTE | 2025-07-25 12:06 | PTCARENOTE ---
Pt assessed.No change in assessment noted.Assisted OOB to chair with minimal assist.Gait is steady.Medicated with Ultram for abdominal pain with good relief of pain.Romo discontinued at 0900 as ordered.DTV at 1500.
--- NOTE | 2025-07-25 15:02 | VNURNOTE ---
Home Health Liaison met with patient at bedside to discuss [facility] nurse/therapy, visits, schedule and homebound status. Patient is agreeable and understands that visits at home will be 2-3 x per week to assess and teach medical and drain
management. Patient is aware that [facility] will contact them for start of care day after discharge from . Provided contact number for [facility].
[facility] referral completed in [facility].
--- NOTE | 2025-07-25 15:41 | CM ---
Initial assessment completed with patient with and mother in room. Patient lives with in a 2 story split level home with B/B on upper level, 5 steps up and 5 steps to lower level. [employer] patient was independent in ambulation and ADL's,
drives, works as dental hygienist. Has a B/P cuff and PO2. No in-home services. No HC-POA. No VA benefits. No psychiatric hospitalizations. PCP is [facility] in [facility]. Pharmacy is [facility] [address] in
[place]. Discharge POC: Anticipate discharge Tuesday07/27/25. Home with BERTRAM RN for drain care the day after discharge.
--- NOTE | 2025-07-25 15:52 | PTCARENOTE ---
Pt assessed.No change in assessment noted.Pt assisted back to bed with minimal assist.Voided clear yellow urine x 2.
--- NOTE | 2025-07-25 22:04 | PTCARENOTE ---
Per Dr. Crawley pts IVFs can be d/c.
--- NOTE | 2025-07-25 23:55 | PTCARENOTE ---
Systems reviewed, no new changes in assessment. + signals on b/l breast (see worklist). Pt assisted to the BR x1. at bedside. Call rosado in reach. Safe environment maintained.
[2025-07-26] VITALS (24 sets, daily range): BP systolic 110–158; BP diastolic 50–84; PULSE 101; O2SAT 95; BMI 32.3
[2025-07-26] MEDS: ULTRAM 100 MG PO ×2 (01:56→12:19)
--- NOTE | 2025-07-26 02:55 | PTCARENOTE ---
Systems reviewed, no new changes in assessment. AM labs provided. + signals in b/l breast. Abd binder in place throughout the night, pt states she is comfortable. Call rosado in reach. Safe environment maintained.
[2025-07-26 03:39] LABS: Hematocrit 31.1 % (37.0-47.0); Hemoglobin 9.9 g/dL (12.0-16.0); Mean Corp Hgb Conc. 31.8 g/dL (33.0-37.0); Mean Corpuscular Volume 96.6 fL (81.0-99.0); Platelet Count 163 10^3/uL (130-400); Red Cell Dist. Width 13.3 % (11.5-14.5)
[2025-07-26 03:51] LABS: Blood Urea Nitrogen 16 mg/dl (7-17); Calcium 8.2 mg/dl (8.4-10.2); Carbon Dioxide 26 mmol/L (22-30); Chloride 107 mmol/L (98-107); Estimated Creatinine Clearance > 125 ml/min; Glucose 96 mg/dl (70-99); Potassium 4.0 mmol/L (3.5-5.1); Sodium 132 mmol/L (135-145); eGFR > 60.00
--- NOTE | 2025-07-26 07:45 | W.PN.INTV ---
Addendum entered and electronically signed by Ida Gao MD 07/26/25 10:35:
Acute blood loss anemia and Postoperative hemodilution
Original Note:
Today's Communication / Plan
Recommendations
Incentive spirometry, out of bed to chair
Follow hemoglobin
Lovenox injections per surgery protocol
Pain control
Disposition efforts
Assessment
-
50-year-old female with history of stage I breast cancer triple negative diagnosed January 2024, status post bilateral nipple sparing mastectomy August 2025, now with DIMITRI flap 07/24/2025
S/p DIMITRI flap, 07/24/25
History of invasive ductal carcinoma, triple negative, stage I, January 2024
Status post neoadjuvant chemotherapy
Status post nipple sparing mastectomy 09/12/2025
Complicated by recurrent seroma, debridement, requiring antibiotics
Conditions present prior to admission
Hypertension/hyperlipidemia
History of left IJ and subclavian DVT
Secondary to left sided port
Removed October 2024
History of asthma
History of urticaria
Positive PEGGY
History of thyroid nodules
Marijuana use for sleep
Plan/recommendations
At this time, patient is doing well
denies shortness of breath
Using incentive spirometry
Pulses dopplerable per nursing
LEISA drains in place, mild drainage
Moving forward
Continue with management per surgery
Tolerating p.o.
Pain control
Doppler checks
Antibiotics per surgery
Primary service requesting Lovenox to start 07/25 in the a.m.
This will continue per surgical protocol
Patient with history of left IJ and subclavian clot secondary to port placement
CT chest October 2024 negative for pulm embolism
Echocardiogram June 2025 with normal biventricular function, normal pulmonary artery pressure
Bowel regimen as needed
Reviewed with critical care nursing, Pharmacy, respiratory care
Disposition efforts
Subjective Dataa
Subjective Data
Date of Service:
Date of Service: July 26, 2025
Subjective:
Patient is without complaints. Denies chest pain, shortness of breath, nausea. Ambulating without difficulty. Currently on room air
Objective Data
Data Reviewed
Vital Signs / I&O / Oxygen:
Vital Signs
Temp Pulse Resp BP Pulse Ox
98.5 F 94 16 128/58 93
07/26/25 07:26 07/26/25 07:00 07/26/25 07:00 07/26/25 07:00 07/26/25 07:00
Intake and Output
07/25/25 07/26/25 07/27/25
06:59 06:59 06:59
Intake Total 1899 / 2024 3940 / 3940
Output Total 1434 / 1464 387 / 387
Balance 466 / 561 3553 / 3553
SaO2 93
Nasal Cannula flow liters per 6
minute
Physical Exam
General: Comfortable
HEENT: Normocephalic and Anicteric
Cardiovascular: S1-S2, Regular Rhythm, Murmur (n) and Rub (n)
Respiratory: Wheeze (n), Crackles (n), Rhonchi (n) and Non-Labored Respirations
GI: Soft and Non Distended
Neurology: Awake and Alert
Skin: Cyanosis (n)
Labs/Micro/Reports
Lab Data
07/26/25 02:52
07/26/25 02:52
[2025-07-26] MEDS: LOVENOX 40 MG SC (07:48)
[2025-07-26] MEDS: TYLENOL 1000 MG PO ×4 (07:48→21:50)
[2025-07-26] MEDS: NEURONTIN 300 MG PO ×3 (07:48→21:50)
[2025-07-26] MEDS: COLACE 100 MG PO ×3 (07:48→21:50)
[2025-07-26] MEDS: SENOKOT 8.6 MG PO ×2 (07:48→19:56)
[2025-07-26] MEDS: VALIUM 5 MG PO ×3 (07:48→21:50)
--- NOTE | 2025-07-26 08:35 | PTCARENOTE ---
Rec'd pt at 0700 awake alert and oriented resting in bed. Speech is clear. Denies dizziness or headache. At rest did not c/o pain but after getting up, walking to and using the bathroom did c/o abd tenderness/achiness. Medicated with ordered 0800
meds. VERGARA. Gait is steady. Maintained hunched position with walking and beach chair position in bed. Skin is pink wm and dry. Face sl flushed. Bilateral breast paddle/flap checks completed with offgoing shift- tissue is soft and pink with refill <2
secconds. Good doppler signals. Sutures intact to incisions. No drainage. Bilateral lower abd dressing is D+I. MIGDALIA drain intact flashing yellow. Pt with 4 LEISA drains -1 each lateral breast and 1 each side of lateral abdomen all with serosang
drainage. Stripped per MD order and emptied. Placed back to bulb suction. Sites are open to air and wnl. Respirs are sl shallow but non-labored on RA with sats of 94%. BS are clear. Encouraged to do IS- getting about 900 mls. Monitor SR. VS as
documented. + pulses. No edema. ABd with + sl hypoactive BS. Nausea better once back in bed. Abd binder removed once back in bed. Pt voided a large amt of yellow urine in the toilet. Capped ints intact Lhand and L ac. Bilat SCD's in place. Partial
CHG bath given and pt did own oral care. Currently back in bed and will get back oob after breakfast. Plan of care reviewed and call rosado in reach. Pts at the bedside.
--- NOTE | 2025-07-26 10:20 | PN.CDI ---
CDI
- -
CDI:
Physician Documentation Request
Admit Date: 07/24/25 06:03
Dear Doctor,
Please review the following and provide your response in the progress notes.
Clinical Indicators:
Pt admitted for Bilateral mastectomies after breast cancer surgery 07/24
Progress note 07/25,'Chest wall incision appears to be intact, mild oozing...LEISA drains in place, mild drainage...'
Trended Hemoglobin/Hematocrits below
ESBL 150 ml
Laboratory Tests
07/10/25 07/25/25 07/26/25
07:44 02:56 02:52
Hgb 13.3 10.7 L 9.9 L
Hct 40.2 32.9 L 31.1 L
Please provide a diagnosis for the above laboratory findings:
Acute blood loss anemia
Abnormal lab value
Other ( please specify)
Use of terms such as suspected, likely, concern for, or probable (associated with a specific diagnosis that is being evaluated, monitored, or treated as if it exists) are acceptable and can be coded in the inpatient setting, when documented at the
time of discharge.
Thank you,
Mary Lou Cason RN
CDI Specialist
[place] [facility]
Please use your independent medical judgment in providing your response.
--- NOTE | 2025-07-26 11:10 | PTCARENOTE ---
CHG bath completed. Assisted back oob to the bathroom then to the chair. Denies discomfort currently. Gait is steady. Breast flap checks unchanged. Breast flaps/paddles are open to air and lower/underside of breasts bilaterally with abd that is
taped in place. Small amt of old drainage on dressings. No new drainage. Call rosado in reach.
--- NOTE | 2025-07-26 12:30 | PTCARENOTE ---
Remains resting oob in the chair. Does c/o 5-6/10 Lower abd and back pain. Medicated with Tramadol 100 mg po. Worked with PT and ambulated in the hallway. Abd binder on. Breast paddle/flap checks are unchanged-pink and warm with good signals. Call
rosado in reach.
--- NOTE | 2025-07-26 12:45 | W.PN.PLAS ---
Today's Communication
-
Out of bed to ambulate
PT OT
Fluids off
Progress Note
Subjective Data
Doing well
Denies shortness of breath
Objective Data
Vital Signs
Temp Pulse Resp BP Pulse Ox
99.1 F 76 15 124/64 95
07/27/25 07:29 07/27/25 06:00 07/27/25 06:00 07/27/25 04:18 07/27/25 04:18
Intake and Output
07/26/25 07/27/25 07/28/25
06:59 06:59 05:59
Intake Total 3940 / 3940 1210 / 1210
Output Total 387 / 387 304 / 304
Balance 3553 / 3553 906 / 906
Intake:
Oral fluids 1940 / 1940 1210 / 1210
IV fluids (Total) 1999
Lr 1,000 ml @ 125 mls/hr IV . 1999
Q8H EMA Rx#:[id number]
Output:
Drain Output (Total) 267 / 267 304 / 304
Left Lower Abdomen [place]- 47 / 47 91 /
De La Garza D
Left Upper Abdomen B 68 / 68 58 / 58
Right Lower Abdomen [facility] 94 / 94 113 / 113
De La Garza C
Right Upper A 58 / 58 42 / 42
Urine, Romo 120 / 120
Other:
Number of approximated MODERATE 1 1
amounts of urine
Number of approximated LARGE 1 1
amounts of urine
Physical exam:
No acute distress
No increased work of breathing
Bilateral breast flaps well-perfused in appearance
Doppler signals intact
No evidence of venous congestion
LEISA drain serosanguineous
Lab Results
07/27/25 04:30
07/27/25 04:30
Assessment / Plan
Status post bilateral DIMITRI flap breast reconstruction
Expected postop dilutional and surgical anemia
Free flap protocol postop day 2
SCD/Lovenox
[2025-07-26] MEDS: FLUSH (NSS) 2 FLUSH IV (13:49)
--- NOTE | 2025-07-26 14:15 | PTCARENOTE ---
States Tramadol helped the back and abd pain- down to a 3. No other changes in assessment. Remains oob in the chair.
--- NOTE | 2025-07-26 14:49 | CARDSERVLU ---
Echocardiogram with Lumason completed after protocol screening completed. Allergies verified.
Patent IV site: _R FA____
IV site flushed with 0.9% NaCl pre and post administration.
Diluted bolus method utilized to enhance visualization of ventricular galvan.
Total volume given: __1.5__ mL
Patient tolerated all procedures well without complications.
--- NOTE | 2025-07-26 16:21 | CM ---
Discharge POC: Home with [facility] RN for drain care. Services to begin day after discharge.
--- NOTE | 2025-07-26 16:58 | PTCARENOTE ---
Remains resting- was oob in the chair all afternoon and said she was comfortable. Dr. Crawley in earlier to see pt and updated. Currently assisted to the bathroom and then back to bed. Gait is steady. Beach chair position maintained. O2 sats are
95-97%. VS as documented. Breast paddles/flaps remains warm and pink with good signals. Dressings are D+I. Call rosado in reach. Family at the bedside.
--- NOTE | 2025-07-26 20:00 | PTCARENOTE ---
Rec'd pt resting in bed beach chair pos, at bedside, oriented, SR, BP stable, paddles bilat w/ good doppler signal, soft, good refill, 2 L LEISA's & 2 R LEISA's w/ SES drainage, ely dsg to lower abd incision, RA, lungs clear, sat 98, hypo bowel
sounds, abd soft, tender to palpation, no n/v, voids in bathroom prn
[2025-07-27 04:18] VITALS: BP 124/64
[2025-07-27] MEDS: ULTRAM 100 MG PO ×2 (04:20→09:38)
[2025-07-27 04:50] LABS: Hematocrit 28.9 % (37.0-47.0); Hemoglobin 9.4 g/dL (12.0-16.0); Mean Corp Hgb Conc. 32.5 g/dL (33.0-37.0); Mean Corpuscular Volume 97.0 fL (81.0-99.0); Platelet Count 157 10^3/uL (130-400); Red Cell Dist. Width 13.2 % (11.5-14.5)
[2025-07-27 05:12] LABS: Blood Urea Nitrogen 13 mg/dl (7-17); Calcium 8.0 mg/dl (8.4-10.2); Carbon Dioxide 26 mmol/L (22-30); Chloride 107 mmol/L (98-107); Estimated Creatinine Clearance > 125 ml/min; Glucose 104 mg/dl (70-99); Potassium 3.8 mmol/L (3.5-5.1); Sodium 134 mmol/L (135-145); eGFR > 60.00
[2025-07-27 06:00] VITALS: BMI 32.3
[2025-07-27] MEDS: LOVENOX 40 MG SC (07:42)
[2025-07-27] MEDS: NEURONTIN 300 MG PO (07:43)
[2025-07-27] MEDS: SENOKOT 8.6 MG PO (07:43)
[2025-07-27] MEDS: COLACE 100 MG PO (07:43)
[2025-07-27] MEDS: TYLENOL 1000 MG PO (07:43)
[2025-07-27] MEDS: VALIUM 5 MG PO (07:43)
--- NOTE | 2025-07-27 09:06 | W.PN.PLAS ---
Today's Communication
-
Discharge to home with visiting nurse
Progress Note
Subjective Data
Doing well
Ready to go home
Denies shortness of breath
Objective Data
Vital Signs
Temp Pulse Resp BP Pulse Ox
99.1 F 76 15 124/64 95
07/27/25 07:29 07/27/25 06:00 07/27/25 06:00 07/27/25 04:18 07/27/25 04:18
Intake and Output
07/26/25 07/27/25 07/28/25
06:59 06:59 05:59
Intake Total 3940 / 3940 1210 / 1210
Output Total 387 / 387 304 / 304
Balance 3553 / 3553 906 / 906
Intake:
Oral fluids 1940 / 1940 1210 / 1210
IV fluids (Total) 1999
Lr 1,000 ml @ 125 mls/hr IV . 1999
Q8H EMA Rx#:[id number]
Output:
Drain Output (Total) 267 / 267 304 / 304
Left Lower Abdomen [facility] 47 / 47 91 / 91
De La Garza D
Left Upper Abdomen B 68 / 68 58 / 58
Right Lower Abdomen [facility] 94 / 94 113 / 113
De La Garza C
Right Upper A 58 / 58 42 / 42
Urine, Romo 120 / 120
Other:
Number of approximated MODERATE 1 1
amounts of urine
Number of approximated LARGE 1 1
amounts of urine
Physical exam:
No acute distress
No increased work of breathing
Bilateral breast flaps well-perfused in appearance
Doppler signals intact
No evidence of venous congestion
LEISA drain serosanguineous
Lab Results
07/27/25 04:30
07/27/25 04:30
Assessment / Plan
Status post bilateral DIMITRI flap breast reconstruction
Expected postop dilutional and surgical anemia
Free flap protocol postop day 3
SCD/Lovenox
--- NOTE | 2025-07-27 09:07 | W.DCSUMMARY ---
Discharge Summary
Discharge Data
Date of Admission: 07/24/25
Date of Discharge: 07/27/25
-
Pending Results: No
Hospital Course
Admitted following DIMITRI flap breast reconstruction to the ICU for every hour flap checks for for over 48 hours. Follow routine postoperative course. Progressively able to ambulate, tolerate a regular diet, pain well-controlled on p.o. meds.
Discharged on postop day 3 with a visiting nurse and close surgical follow-up.
Discharge Plan
-
Patient Disposition: Home (Routine Discharge)
Discharge Diagnosis/Procedures: Status post bilateral DIIMTRI flap breast reconstruction
Diet: Regular
Activity: No strenuous activity
Additional Activity: No heavy lifting over 10 pounds, TRex arms for range of motion
Driving Restrictions: Not until seen by your Dr
Bathing Restrictions: OK to Shower
Other Services: VN
Wound Care: ABD pads over incision as needed, abdominal binder as needed, strip and record drain outputs twice daily
Referrals:
Keeley Mendez CRNP [Family Provider, General]
Prescriptions:
New
docusate sodium 100 mg Capsule
100 mg PO BID 14 Days Qty: 28 0RF
tramadol 50 mg Tablet
50 - 100 mg PO Q6HPRN PRN (Reason: severe pain) 14 Days Qty: 24 0RF
gabapentin 300 mg Capsule
300 mg PO TID 30 Days Qty: 90 2RF
diazepam 5 mg Tablet
5 mg PO TID PRN (Reason: muscle spasms) 14 Days Qty: 42 0RF
enoxaparin 40 mg/0.4 mL Syringe
40 mg SC DAILY 14 Days Qty: 5.6 0RF
Continued
acetaminophen 500 mg Tablet
1,000 mg PO Q6HPRN PRN (Reason: mild pain)
ascorbic acid (vitamin C) [Vitamin C] 1,000 mg Tablet
1 g PO DAILY
montelukast 10 mg Tablet
10 mg PO PRN PRN (Reason: ALLERGY/HIVES)
astaxanthin
1 tab PO DAILY
Held
aspirin 81 mg Tablet,Delayed Release (Dr/Ec)
81 mg PO DAILY
Hold Instructions: Resume on 08/07/25.
Discharge Orders:
Discharge Patient (As Directed); Ordered 07/27/25
Ordered By: Jose Crawley
Discharge Date and Time
Print Language: NEPALESE
--- NOTE | 2025-07-27 10:08 | PTCARENOTE ---
10:00 patient discharge home. Transportation provided by patient's . left x 2 peripheral lines removed. All discharge instructions given to patient and her . Both express understanding off all discharge instructions At time of
discharge pt has RT x 2 + Left x 2 LEISA drainages. pt able to demonstrate proper drainage technique. d/c home on lovenox: demonstrated proper injection . Tranmadol given prn order prior to discharge.
--- NOTE | 2025-07-27 10:12 | CM ---
For discharge home today, transporting.
[facility] updated, pt aware [facility] will be starting services.
No other CM needs at this time.
== END 2025-07-27 10:12 | disposition home health service (06) | DRG 580 ==
LOC: ICU 06:03
PROVIDERS: Nurse Practitioner Family; Nurse Practitioner Primary Care; Plastic Surgery; Surgery; ADMITTING PHYSICIAN Surgery Plastic and Reconstructive Surgery; CONSULT PHYSICIAN Internal Medicine Critical Care Medicine; FAMILY PHYSICIAN Nurse Practitioner Adult Health
PROC: 0HPT0NZ Removal of Tissue Expander from Right Breast, Open Approach (ICD-10-PCS; 2025-07-24)
PROC: 07B90ZX Excision of Left Internal Mammary Lymphatic, Open Approach, Diagnostic (ICD-10-PCS; 2025-07-24)
PROC: 07B80ZX Excision of Right Internal Mammary Lymphatic, Open Approach, Diagnostic (ICD-10-PCS; 2025-07-24)
PROC: 0WQF0ZZ Repair Abdominal Wall, Open Approach (ICD-10-PCS; 2025-07-24)
PROC: 0HPU0NZ Removal of Tissue Expander from Left Breast, Open Approach (ICD-10-PCS; 2025-07-24)
PROC: 0HRV077 Replacement of Bilateral Breast using Deep Inferior Epigastric Artery Perforator Flap, Open Approach (ICD-10-PCS; 2025-07-24)
DX: Z42.1 Encounter for breast reconstruction following mastectomy (principal); D62 Acute posthemorrhagic anemia; C50.912 Malignant neoplasm of unspecified site of left female breast; K43.9 Ventral hernia without obstruction or gangrene; Z90.13 Acquired absence of bilateral breasts and nipples; Z87.891 Personal history of nicotine dependence; I10 Essential (primary) hypertension; Z17.421 Hormone receptor negative with human epidermal growth factor receptor 2 negative status; Z79.82 Long term (current) use of aspirin; Z92.21 Personal history of antineoplastic chemotherapy; K42.9 Umbilical hernia without obstruction or gangrene
CPT/HCPCS: 80048; 80053; 85014; 85018; 85025; 85027; 85610; 85730; 88305; 93005; 97163; A4648; C1729; C1781

== ENCOUNTER 2025-07-29 23:10 | Inpatient (IN) | payer OTHER, SELFPAY ==
[2025-07-29 18:24] VITALS: BP 156/97
[2025-07-29] MEDS: ZOFRAN 4 MG IV (19:49)
[2025-07-29] MEDS: MORPHINE SULFATE 4 MG IV (19:49)
[2025-07-29 20:03] LABS: Hematocrit 29.3 % (37.0-47.0); Hemoglobin 10.0 g/dL (12.0-16.0); Mean Corp Hgb Conc. 34.1 g/dL (33.0-37.0); Mean Corpuscular Volume 89.9 fL (81.0-99.0); Nucleated Red Blood Cells % 0 %; Platelet Count 222 10^3/uL (130-400); Red Cell Dist. Width 13.1 % (11.5-14.5)
[2025-07-29 20:23] LABS: ALT (SGPT) 25 U/L (0-35); AST (SGOT) 31 U/L (14-36); Albumin 2.9 g/dl (3.5-5.0); Alkaline Phosphatase 87 U/L (38-126); Blood Urea Nitrogen 15 mg/dl (7-17); Calcium 8.5 mg/dl (8.4-10.2); Carbon Dioxide 24 mmol/L (22-30); Chloride 103 mmol/L (98-107); Glucose 138 mg/dl (70-99); Potassium 4.2 mmol/L (3.5-5.1); Sodium 133 mmol/L (135-145); Total Protein 5.3 g/dl (6.3-8.2); eGFR > 60.00
[2025-07-29 21:01] VITALS: BP 98/60
[2025-07-29] MEDS: ANCEF 5 IV (22:12)
--- NOTE | 2025-07-29 22:18 | ED.GENMED ---
History of Present Illness
General
Chief Complaint: Post Operative Problem(s)
Source: patient and spouse (Spouse states that the breast was normal as of yesterday and doing well)
Time Seen by Provider: 07/29/25 19:25
History of Present Illness
History of Present Illness:
Note:
CHIEF COMPLAINT(S)
Left breast discoloration, swelling, and dyspnea.
HISTORY OF PRESENT ILLNESS
The patient is a 50-year-old female with a history of breast cancer who underwent deep inferior epigastric drop hammer setter up (DIMITRI) flap surgery for breast reconstruction on Tuesday. She was discharged on Tuesday in stable condition. The patient reports
waking up this morning to find her left breast appearing black and experiencing increased swelling, leading her to seek evaluation as it was concerning for complications. The patients breathing became labored today, accompanied by nausea and
increased breast tenderness. She has a follow-up appointment scheduled for Tuesday; however, after consulting with her surgeon, due to worsening symptoms, she was advised that hospital admission might be necessary for evaluation and management.
Her previous medical history includes a double mastectomy in August, blood clot in the jugular vein managed with apixaban (Eliquis) from October to January, which was discontinued once the clot resolved. The patient denies any fever but reports
significant firmness of the affected area.
PAST MEDICAL AND SURIGICAL HISTORY
- Double mastectomy for breast cancer in August.
- Jugular vein blood clot treated with apixaban.
- History of hypertension prior to chemotherapy.
- Recent DIMITRI flap reconstruction surgery.
CHRONIC MEDICAL CONDITIONS SIGNIFICANTLY AFFECTING CARE
History of breast cancer.
ALLERGIES
Reported rash to penicillin, although tolerated it without incident during a prior surgery.
REVIEW OF SYSTEMS
- Constitutional: Reports changes in breast coloration and swelling.
- Cardiovascular: No chest pain reported aside from surgery site discomfort.
- Respiratory: Reports shortness of breath since today.
- Gastrointestinal: Reports nausea.
- Integumentary: Notable for blackened discoloration of left breast flap.
PHYSICAL EXAM
General: Alert, no acute distress.
Skin: Warm, dry, with discoloration noted in the breast region.
Head: Normocephalic, atraumatic.
Neck: Supple, trachea midline.
Eye Ears, nose, mouth and throat: Oral mucosa moist.
Cardiovascular: No edema, normal peripheral perfusion, heart regular without murmur.
Respiratory: Lungs clear to auscultation, respirations non-labored.
Breast: Bilateral breasts with surgical wounds. The left DIMITRI flap shows evidence of early necrosis and blackened color. The right flap appears well-perfused with intact sutures. Left breast flap shows no surrounding redness but significant
induration.
Gastrointestinal: Abdomen nondistended.
Back: Normal range of motion, Normal alignment.
Musculoskeletal: Normal ROM, normal strength.
Neurological: Alert and oriented to person, place, time, and situation, no focal neurological deficit observed.
Psychiatric: Cooperative, appropriate mood & affect.
PROBLEM LIST
- Acute:
- Left breast flap discoloration and suspected necrosis.
- Shortness of breath.
- Nausea.
- Indurated left breast flap with pain.
- Chronic:
- History of breast cancer.
PLAN
1. Hospital admission for monitoring and potential surgical intervention.
2. Imaging studies to evaluate for possible clot in the lungs (CT scan to rule out pulmonary embolism).
3. Pain management with medication as needed.
4. Consultation with the surgeon for possible debridement and/or expedient flap revision.
5. Continue reassessment to monitor for any changes in symptoms or new developments.
DIFFERENTIAL DIAGNOSIS
The Differential Diagnosis includes, in no particular order and is not limited to:
- Flap necrosis due to poor vascular supply.
- Post-surgical infection leading to further complications (though no erythema noted).
- Deep venous thrombosis with pulmonary embolism due to recency of symptoms and dyspnea symptoms.
- Seroma or hematoma under the reconstructed flap.
- Pulmonary embolism as a cause of shortness of breath.
- Non-ischemic cardiac cause for dyspnea.
- Anxiety or panic attack exacerbating shortness of breath.
- Fat necrosis post-reconstruction surgery.
- Localized allergic reaction.
Disposition:
SUMMARY OF ENCOUNTER
The patient is a 50-year-old female who presented to the emergency department with concerns of necrotic changes and marked swelling of the left breast following a recent deep inferior epigastric drop hammer setter up (DIMITRI) flap breast reconstruction surgery.
No fever was reported. A CT angiography (CTA) was performed, which ruled out pulmonary embolism but confirmed significant edema of the left breast, consistent with flap necrosis. The patient reports chest tightness but remains stable. After
consultation with plastic surgery, it was decided that the patient should be admitted for surgical evaluation and intervention.
DISPOSITION
Admission for further surgical evaluation and management.
MANAGEMENT OF THE PATIENTS CARE WAS DISCUSSED WITH
Case discussed with plastic surgery, who will see the patient in the morning to arrange surgery.
PLAN
Admit for monitoring and potential surgical intervention by the plastic surgery team.
INDEPENDENT REVIEW OF LABS AND INTERPRETATION OF TESTS
My independent review of the CT angiography indicates no pulmonary embolism but shows marked edema of the left breast.
MEDICAL DECISION MAKING
-Complexity of Data Reviewed: Chronic conditions affecting care include breast cancer and recent DIMITRI flap reconstruction surgery. Differential diagnoses considered include flap necrosis due to poor vascular supply and other potential causes for the
acute presentation.
-Data:
Category 1: CT angiography reviewed and ruled out pulmonary embolism.
Category 3: Discussion of management with plastic surgery, who agreed with the assessment and plans to evaluate for potential surgery.
DIAGNOSIS
Flap necrosis, unspecified, following DIMITRI flap breast reconstruction (ICD-10-CM T81.89XA).
Past History
Past History
ED Past Medical History: Asthma
ED Past Surgical History: Cholecystectomy
Social History
Tobacco: Non-smoker
Alcohol: None
Drug: None
Personal:
Living: with family
Phy Exam
Physical Exam
Physical Exam:
.
Course
Orders/Labs/Results
Orders:
Orders
07/29/25 19:41
Morphine Sulfate 4 mg IV NOW STA
Ondansetron Injectable [Zofran] 4 mg IV NOW STA
07/29/25 19:42
CT Chest PE Study Urgent
Comment:
Reason For Exam: dyspnea, h/o subclavian clot, recent breast surger
07/29/25 19:48
Complete Blood Count/With Diff Urgent
Comprehensive Metabolic Panel Urgent
07/29/25 22:06
CeFAZolin 1 GRAM [Ancef] 1 gram in 5 ml IV NOW
07/29/25 22:41
Admit/Transfer Patient As Directed
Co-Sign Provider:
Level of Care: Inpatient admission
Assign to:: Medical/Surgical
Physician / Group: felix
Diagnosis: left breast infection
Reason for Hospitalization: left breast infection
Expected length of stay greater than two midnights?: Yes
ELOS- Estimated Length of Stay in days: 2
I certify the patient meets the requirements for IP care: Yes
Code Status As Directed
Resuscitation Status: Full Code
PRN Pain Medication Management As Directed
May give lesser potent ordered pain med per pt: Yes
preference::
Protocol:: Medication orders for pain may be administered in a
manner that supports deferring to patient preference
when the pt is:
- Requesting an ordered lesser potent pain medication.
Least to most potent pain medications are defined
as: acetaminophen < NSAID < tramadol < opioids
(morphine, oxycodone, hydromorphone).
- Requesting a lesser dose of the same medication IF
ORDERED.
- Requesting a less intrusive route of administration
if both routes are prescribed by the provider (PO <
IV).
07/29/25 23:17
Tramadol HCl [Ultram] 50 mg PO Q6HPRN PRN severe pain
07/30/25 01:21
Acetaminophen [Tylenol] 1,000 mg PO Q6HPRN PRN mild pain
Diazepam [Valium] 5 mg PO TID PRN muscle spasms
07/30/25 01:21
PLASTIC SURGERY CONSULT Routine
Consulting Provider: Jose Crawley
Was physician already notified: Yes
Activity As Directed
Activity Level: As Tolerated
Vital Signs As Directed
Frequency: Per unit guidelines
DX Deep Vein Thrombosis Video Routine
07/30/25 06:00
Complete Blood Count/With Diff IN AM
Comprehensive Metabolic Panel IN AM
07/30/25 08:00
CeFAZolin 2 GRAM [Ancef] 2 grams in 10 ml IV Q8
Gabapentin [Neurontin] 300 mg PO TID
07/30/25 Dinner
Regular
At Your Request: Full Participation
07/30/25 18:00
Enoxaparin Sodium [Lovenox] 40 mg SC QPM
Abnormal Lab Results
07/29/25
19:48
RBC 3.26 L 10^6/uL
(4.20-5.40)
Hgb 10.0 L g/dL
(12.0-16.0)
Hct 29.3 L %
(37.0-47.0)
Abs Immat Gran (auto) 0.1 H 10^3/uL
(0-0.05)
Absolute Lymphs (auto) 1.0 L 10^3/uL
(1.2-3.4)
Absolute Monos (auto) 1.2 H 10^3/uL
(0.1-0.6)
Immature Gran % 1.3 H %
(0-0.5)
Lymphocytes % 12.4 L %
(20.5-51.1)
Monocytes % 14.6 H %
(1.7-9.3)
Sodium 133 L mmol/L
(135-145)
Glucose 138 H mg/dl
(70-99)
Total Protein 5.3 L g/dl
(6.3-8.2)
Albumin 2.9 L g/dl
(3.5-5.0)
07/29/25 19:48
07/29/25 19:48
Vital Signs
Initial and Last Documented VS:
Initial Vital Signs
Temp Pulse Resp Pulse Ox
98.9 F 109 18 100
07/29/25 18:20 07/29/25 18:20 07/29/25 18:20 07/29/25 18:20
Last Documented Vital Signs
Temp Pulse Resp BP Pulse Ox
98.4 F 80 18 110/65 95
07/30/25 01:34 07/30/25 01:34 07/30/25 01:34 07/30/25 01:34 07/30/25 01:34
*Pulse Oximetry
SaO2: 97
Oxygen Mode of Delivery: Room air
Patient hypoxic: no
*Critical Care Note
Total Time (30-74mins, 75-104mins- exclusive of procedures): Not Applicable
ED Attending Note
-
Portions of this chart may have been created with voice recognition software.� Occasional wrong word or��sound alike� substitutions may have occurred due to the inherent limitations of voice recognition software.
Discharge Plan
Departure
Patient Disposition: Admit
Date of Disposition: 07/29/25
Time of Disposition: 22:20
Admit to: Med/Surg
Presentation/result/management discussed w/ accepting MD/DO: Hospitalist
Discharge Problem:
Flap reconstruction failure
Interventions
Interventions:
*Risk Screen - Suicide Last Done: 07/29/25 19:55
*General Assessment Last Done: 07/29/25 19:55
*Neglect/Abuse Screening Last Done: 07/29/25 19:55
*ED- Fall Risk Assessment Last Done: 07/29/25 19:55
*ED COVID-19 Vaccine History Last Done: 07/29/25 19:55
*ED Influenza Vaccine History Last Done: 07/29/25 19:55
*Nursing Disposition Last Done: 07/30/25 01:20
ED-Skin Assessment Last Done: 07/29/25 23:10
Discharge Date and Time
Discharge Date/Time: 07/30/25 01:20
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
[2025-07-29 23:04] VITALS: BP 109/71
[2025-07-29] MEDS: ULTRAM 50 MG PO (23:28)
[2025-07-30] VITALS (20 sets, daily range): BP systolic 5–117; BP diastolic 48–71
--- NOTE | 2025-07-30 01:30 | PTCARENOTE ---
Pt rec'd from ED awake & oriented x3. Ambulated to BR & voided qs. Feeling rather lightheaded and was taken to bed via w/c. Feeling very fatigued. Instucted to get OOB only with assistance.2 LEISA drains w/sutures intact. Lt breast flap black in color;
lt breast indurated.
[2025-07-30] MEDS: TYLENOL 1000 MG PO (02:36)
[2025-07-30] MEDS: NEURONTIN 300 MG PO ×2 (02:36→22:08)
[2025-07-30] MEDS: VALIUM 5 MG PO (02:37)
[2025-07-30 08:23] LABS: Hematocrit 27.5 % (37.0-47.0); Hemoglobin 9.4 g/dL (12.0-16.0); Mean Corp Hgb Conc. 34.2 g/dL (33.0-37.0); Mean Corpuscular Volume 92.9 fL (81.0-99.0); Nucleated Red Blood Cells % 0 %; Platelet Count 223 10^3/uL (130-400); Red Cell Dist. Width 13.2 % (11.5-14.5)
--- NOTE | 2025-07-30 08:31 | VNURNOTE ---
Addendum entered by Brittany Painter RN 07/31/25 09:51:
[facility] Resumption referral placed in [facility].
Original Note:
Chart reviewed. Patient is current with [facility]. Will continue to follow hospital course and DC plans.
[2025-07-30] MEDS: ANCEF 10 IV ×3 (08:51→23:05)
[2025-07-30] MEDS: ULTRAM 50 MG PO (08:51)
[2025-07-30 08:59] LABS: ALT (SGPT) 24 U/L (0-35); AST (SGOT) 28 U/L (14-36); Albumin 2.6 g/dl (3.5-5.0); Alkaline Phosphatase 84 U/L (38-126); Blood Urea Nitrogen 14 mg/dl (7-17); Calcium 8.4 mg/dl (8.4-10.2); Carbon Dioxide 25 mmol/L (22-30); Chloride 105 mmol/L (98-107); Estimated Creatinine Clearance > 125 ml/min; Glucose 108 mg/dl (70-99); Potassium 4.5 mmol/L (3.5-5.1); Sodium 133 mmol/L (135-145); Total Protein 5.1 g/dl (6.3-8.2); eGFR > 60.00
--- NOTE | 2025-07-30 09:38 | PTCARENOTE ---
TT Dr Crawley - NPO for OR today. May have lovenox this morning. Dr Villanueva aware
[2025-07-30] MEDS: LOVENOX 40 MG SC (09:45)
[2025-07-30] MEDS: NEURONTIN PO ×2 (11:54→17:24)
--- NOTE | 2025-07-30 11:55 | PTCARENOTE ---
Pt transported to PACU via bed/volunteers. Report given to Mae. Wipes done.
--- NOTE | 2025-07-30 12:37 | CON.PS ---
Consultation - Plastic Surgery
Consultation Request
Date/Time Consultation Requested: 07/30/2025
Date/Time Consultation Performed: Same
Requesting Provider: Hospitalist
Performing Provider: NUZHAT Crawley MD
Reason for Consultation: DIMITRI flap
Medical History
-
Chief Complaint: Left breast pain and swelling
History of Present Illness:
50-year-old female well-known to me for history of breast cancer status post bilateral mastectomy and tissue computer analyst supervisor placement. She suffered wound healing issues with her tissue computer analyst supervisor requiring removal and replacement. Of note, she required a
port as part of her breast cancer care, and she developed a left subclavian clot extending into her jugular. This was treated with anticoagulation. Referred to hematology for additional workup however no additional prothrombotic testing was
performed as it was deemed not indicated.
Finished her anticoagulation course and subsequently went on to desire a bilateral DIMITRI flap breast reconstruction. This was performed without issue last Tuesday. She stayed in the ICU for 3 days for flap monitoring. Flap showed evidence of
arterial Stangel without evidence of venous congestion. She was discharged accordingly on postoperative day 3 as per routine. She was maintained on Lovenox prophylactic dosing in the interim for DVT prevention. Unfortunately, the morning of 07/29
she discovered the left flap was bruised in appearance and swollen. I evaluated her in the office and recommended removal of the flap and replacement with a tissue computer analyst supervisor. This was scheduled for 2 days later. She developed increasing pain and
shortness of breath prompting her to present to the ED.
Allergies / Home Medications
Allergy/AdvReac Type Severity Reaction Status Date / Time
Penicillins Allergy Mild Pharmacy Verified 07/29/25 13:26
to Review
latex (Latex) Allergy Rash Verified 07/29/25 13:26
paclitaxel (From Taxol) Allergy Hives-Red/Flush. Verified 07/29/25 13:26
Tachycardia.
�Medication �Instructions �Recorded �Confirmed �Type
acetaminophen 500 mg tablet 1,000 mg PO Q6HPRN PRN mild pain 09/07/24 07/29/25 History
ascorbic acid (vitamin C) 1,000 mg 1 g PO DAILY Supplement 11/11/24 07/29/25 History
tablet (Vitamin C)
aspirin 81 mg tablet,delayed 81 mg PO DAILY Blood Clot 07/17/25 07/29/25 History
release Prevention/Tx
Held on 07/27/25.
Instructions: Resume on
08/07/25.
astaxanthin 1 tab PO DAILY Supplement 07/17/25 07/29/25 History
diazepam 5 mg tablet 5 mg PO TID PRN muscle spasms 14 07/27/25 07/29/25 Rx
days #42 tabs
gabapentin 300 mg capsule 300 mg PO TID 30 days #90 caps 07/27/25 07/29/25 Rx
tramadol 50 mg tablet 50 - 100 mg (1 - 2 x 50 mg) PO 07/27/25 07/29/25 Rx
Q6HPRN PRN severe pain 14 days #24
tabs
docusate sodium 100 mg capsule 100 mg PO BID STOOL SOFTENER 07/30/25 History
physical exam:
No acute distress
No increased work of breathing
Right breast flap intact with arterial signal, no evidence of venous congestion, routine healing
Left breast flap with venous engorgement, no arterial signal notable swelling
LEISA drains continue to be serosanguineous
Physical Exam
Vital Signs
Temp 98.6 F 07/30/25 07:09
Temp route: Oral 07/30/25 07:09
Pulse 98 07/30/25 07:09
Resp Rate 18 07/30/25 07:09
Blood pressure 114/64 07/30/25 07:09
Blood pressure extremity used: Left upper arm 07/30/25 07:09
Position: Lying 07/30/25 07:09
MAP (cuff-Gifty Monitor) 79 07/30/25 01:00
SaO2 95 07/30/25 07:09
Oxygen Mode of Delivery Room air 07/30/25 07:09
Can the patient verbally communicate their pain? Yes 07/30/25 09:51
Pain scale ratin 07/30/25 09:51
Actual Weight 191 lb 9 oz 07/30/25 01:34
Body Mass Index (BMI) 30.0 07/30/25 01:34
Lab Results
07/30/25 07:10
07/30/25 07:10
Assessment / Plan
-
Delayed venous thrombosis after DIMITRI flap
Unfortunately she suffered the unlikely outcome of a delayed venous thrombosis occurring postoperative day 6 following her DIMITRI flap. As such salvage is extremely unlikely given time delays and tissue compromise. Salvage at this point would most
likely result in extensive fat necrosis requiring repeat debridements. As such a conversation was had about removing the flap and replacing with a tissue computer analyst supervisor. She is amenable to this plan. Thankfully, she has not required radiation therapy
as part of her breast cancer care, and implant-based reconstruction is still a very reasonable option.
Perhaps equally importantly, we did have a long conversation about a potentially prothrombotic state. This is the second incidence of surgery related thrombosis. I do believe she should continue to work up any underlying prothrombotic state.
Carol was made aware of the delayed venous thrombosis and he will see her as an outpatient. Surveillance CT PE and lower extremity duplex were performed to rule out DVT PE. None were identified. As such she can continue on prophylactic Lovenox
dosing.
Will proceed with the OR for removal of left breast flap and placement of tissue computer analyst supervisor. Consented accordingly. N.p.o.
Data Reviewed
-
CT Scan: Image Personally Visualized and interpreted
Ultrasound: Report Reviewed by me
Labs: Labs Reviewed by me
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
--- NOTE | 2025-07-30 12:41 | OR.RPT ---
Operative Report
Operative Report
Date of surgery 07/30/2025
Surgeon: NUZHAT Crawley MD
Preoperative diagnosis:
1. History of breast cancer
2. 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
3. Status post DIMITRI flap breast reconstruction
Postoperative diagnosis: Delayed venous thrombosis of left breast flap
Procedure:
1. Debridement subcutaneous tissues to fascia 25x20 cm left breast
2. delayed insertion of tissue stripper latex for breast reconstruction, left
Anesthesia: General
Complications: None
EBL: 30 cc
Specimens:
1. Left breast flap
2. Segment of internal mammary artery
3. Segment of internal mammary vein
Indication for procedure: Patient is a 50-year-old female who elected to pursue delayed DIMITRI flap breast reconstruction. She had a history of subclavian/jugular clot associated with her port as part of her breast cancer care. She finished
anticoagulation therapy and underwent custom tailor apprentice evaluation. No additional risk factors were identified for prothrombotic state and as such no additional testing was performed. Despite this, patient I had a long conversation about the potential
risk for flap thrombosis. Unfortunately she underwent a routine DIMITRI flap breast reconstruction and routine postoperative admission. After 3 days of flap monitoring without evidence of arterial or venous compromise, she was discharged to home. On
postop day 6 she awoke to a swollen flap with evidence of venous congestion. As such she presented to my office for evaluation. Recommendation was provided to go to the emergency department or if she felt well she could pursue elective removal in
the next day or 2. She progressively felt short of breath throughout the day with increasing pain. As such she presented to the emergency department. Given the delayed venous thrombosis, plan was made for flap debridement and placement of a
tissue stripper latex for future implant-based reconstruction. Risk reviewed at length and consents were signed.
Procedure in detail:
The patient was identified preoperatively and the surgical site was confirmed by the left breast. All questions were answered and consents were confirmed. Patient was taken back the operating placed upon the table. Anesthesia was induced and the
patient was prepped and draped in usual sterile fashion using ChloraPrep solution. Timeout for patient safety was performed was confirmed that preoperative antibiotics have been administered and bilateral SCDs were in place. Patient was maintained
on prophylactic Lovenox dosing. Procedure began with the removal of the sutures at the flap island. After release, the flap was manually freed from the overlying mastectomy flaps. The flap was removed from the chest wall and sent for pathology.
There was clear evidence of venous congestion and venous thrombosis both in the superficial epigastric vein as well as the pedicle vein. In evaluating the internal mammary artery and vein, the artery looked potentially patent but may have shown
evidence of thrombosis as well. A segment of this was removed and sent for pathology. The internal mammary vein showed thrombosis and a segment of this was removed and also sent for pathology. The artery and vein were clipped and hemostasis was
ensured. Debridement was performed with a combination of chemical and excisional approaches over an area of 20 x 25 cm. Hydroperoxide was used to reprep the pocket. A 13 cm tissue stripper latex was then placed on the chest wall and sutured in place
with 2-0 silk sutures. The wound was then closed over in layers using 2-0 Vicryl followed by 3-0 Biosyn and 3-0 nylon. A drain was placed in the space and sutured in place with a 2-0 Prolene. Patient tolerated the procedure well and was performed
out complication, all counts were correct at the end the case. She was extubated taken the PACU further care.
--- NOTE | 2025-07-30 14:00 | W.IMMPOSTOP ---
Surgical Immed Post Op Note
-
Primary Surgeon: NUZHAT Crawley MD
Assisting Surgeon:
Pre-op Diagnosis: Delayed venous thrombosis of DIMITRI flap
Post-op Diagnosis: Same
Procedure Performed: Debridement of left breast DIMITRI flap, insertion of tissue vice president of development
Anesthesia Type: General
Specimen / Cultures: Left breast flap, segment of IMV, segment of MALDONADO
Estimated Blood Loss: 30 cc
Complications: None
Operative Findings: As expected
--- NOTE | 2025-07-30 14:50 | W.PN.UPDATE ---
Update Note
Progress Note Update
I assistd Dr. Crawley in the flap revision and removal as I care for the patient and participated in the DIMITRI flap surgery.
Also made Hematology aware of this event.
--- NOTE | 2025-07-30 16:03 | PTCARENOTE ---
Returned to [facility] from PACU. Pt sleepy, but arousable. Surgical sites checked. LEISA drains x4 in place and draining. VS done. Oriented to surroundings and call rosado.
--- NOTE | 2025-07-30 16:11 | CM ---
Pt in OR spoke with her Jorden. He said they live in a 2 story home with 0 steps to enter and 5 steps to bed/bathroom. She is independent in activates of daily living.She does drive .She had [facility] prior to admission.
Has [facility] . No SNF hx
Pharmacy [facility]
PCP Dr Keeley Mendez
PLAN Home with probable [facility]
--- NOTE | 2025-07-31 02:03 | PTCARENOTE ---
Pt rang to get up to bathroom and staff noticed there was some newer blood on gown/ coming from LEISA drain B site. on assessment sutures are still intact, no active bleeding noticed currently. pt states pain is tolerable/ minimal. will continue to
monitor and pass along to day shift.
[2025-07-31] MEDS: COLACE 100 MG PO (03:00)
[2025-07-31 03:52] VITALS: BP 98/56
[2025-07-31 06:34] LABS: Hematocrit 23.9 % (37.0-47.0); Hemoglobin 7.9 g/dL (12.0-16.0); Mean Corp Hgb Conc. 33.1 g/dL (33.0-37.0); Mean Corpuscular Volume 95.2 fL (81.0-99.0); Nucleated Red Blood Cells % 0.2 %; Platelet Count 213 10^3/uL (130-400); Red Cell Dist. Width 12.8 % (11.5-14.5)
[2025-07-31 06:57] LABS: Blood Urea Nitrogen 17 mg/dl (7-17); Calcium 8.2 mg/dl (8.4-10.2); Carbon Dioxide 29 mmol/L (22-30); Chloride 104 mmol/L (98-107); Estimated Creatinine Clearance > 125 ml/min; Glucose 114 mg/dl (70-99); Potassium 4.4 mmol/L (3.5-5.1); Sodium 135 mmol/L (135-145); eGFR > 60.00
[2025-07-31 07:00] VITALS: BP 107/58
[2025-07-31] MEDS: ULTRAM 50 MG PO (08:09)
[2025-07-31] MEDS: ANCEF 10 IV (08:10)
[2025-07-31] MEDS: LOVENOX 40 MG SC (08:10)
[2025-07-31] MEDS: NEURONTIN 300 MG PO (10:20)
[2025-07-31] MEDS: MIRALAX 17 GRAMS PO (11:29)
[2025-07-31] MEDS: TYLENOL 1000 MG PO (11:33)
[2025-07-31] MEDS: VALIUM 5 MG PO (11:33)
[2025-07-31 12:22] LABS: Hematocrit 25.8 % (37.0-47.0); Hemoglobin 8.7 g/dL (12.0-16.0)
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
--- NOTE | 2025-07-31 14:33 | W.DCSUMMARY ---
Discharge Summary
Discharge Data
Date of Admission: 07/29/25
Date of Discharge: 07/31/25
-
Pending Results: No
Hospital Course
Admitted following delayed venous thrombosis of the left breast flap. Taken to the OR for flap debridement and placement of a tissue portuguese tutor in the left breast. Underwent additional testing to rule out lower extremity DVT and PE. Preliminary
heme workup. Will refer to hematology postoperatively for additional prothrombotic workup.
Routine surgical follow-up
Discharge Plan
-
Patient Disposition: Home (Routine Discharge)
Discharge Diagnosis/Procedures: s/p flap debridement and tissue portuguese tutor placement, L breast
Condition: Good
Diet: Regular
Activity: No strenuous activity
Driving Restrictions: Not until seen by your Dr
Bathing Restrictions: OK to Shower
Other Services: VN
Wound Care: strip and record drain output twice daily, compression prn, T zhou arms for ROM
Referrals:
Keeley Mendez CRNP [Family Provider, General]
Prescriptions:
New
cefadroxil 500 mg capsule
500 mg PO BID Qty: 42 0RF
Continued
acetaminophen 500 mg Tablet
1,000 mg PO Q6HPRN PRN (Reason: mild pain)
ascorbic acid (vitamin C) [Vitamin C] 1,000 mg Tablet
1 g PO DAILY
astaxanthin
1 tab PO DAILY
tramadol 50 mg Tablet
50 - 100 mg PO Q6HPRN PRN (Reason: severe pain) 14 Days Qty: 24 0RF
gabapentin 300 mg Capsule
300 mg PO TID 30 Days Qty: 90 2RF
diazepam 5 mg Tablet
5 mg PO TID PRN (Reason: muscle spasms) 14 Days Qty: 42 0RF
docusate sodium 100 mg capsule
100 mg PO BID
enoxaparin [Lovenox] 40 mg/0.4 mL Syringe
40 mg SC DAILY
Held
aspirin 81 mg Tablet,Delayed Release (Dr/Ec)
81 mg PO DAILY
Hold Instructions: Resume on 08/07/25.
Discharge Orders:
Discharge Patient (As Directed); Ordered 07/31/25
Ordered By: Jose Crawley
Discharge Date and Time
Print Language: GREEK
--- NOTE | 2025-07-31 15:13 | CM ---
MD entered order for discharge.
Pt requested resumption with [facility] .
Referral accepted in care port.
Spouse will drive her home.
PLAN Home with [facility]
[2025-07-31 15:29] VITALS: BP 102/61
[2025-08-02 03:12] LABS: Beta-2-Glycoprotein I Ab. IgA <10 SAU (<=20); Beta-2-Glycoprotein I Ab. IgG <10 SGU (<=20); Beta-2-Glycoprotein I Ab. IgM <10 SMU (<=20)
[2025-08-03 03:00] LABS: Phosphatidylserine Ab, IgA 0 APS (0-19); Phosphatidylserine Ab, IgG 0 GPS (0-15); Phosphatidylserine Ab, IgM 0 MPS (0-21)
== END 2025-07-31 16:06 | disposition home health service (06) | DRG 902 ==
LOC: 4 EAST ACU 23:10
PROVIDERS: Surgery; ADMITTING PHYSICIAN Hospitalist; ATTENDING PHYSICIAN Internal Medicine; CONSULT PHYSICIAN Surgery Plastic and Reconstructive Surgery; EMERGENCY PHYSICIAN Emergency Medicine; FAMILY PHYSICIAN Nurse Practitioner Adult Health
PROC: 0JB60ZZ Excision of Chest Subcutaneous Tissue and Fascia, Open Approach (ICD-10-PCS; 2025-07-30)
PROC: 0HHU0NZ Insertion of Tissue Expander into Left Breast, Open Approach (ICD-10-PCS; 2025-07-30)
DX: L76.82 Other postprocedural complications of skin and subcutaneous tissue (principal); E87.1 Hypo-osmolality and hyponatremia; N61.0 Mastitis without abscess; T79.7XXA Traumatic subcutaneous emphysema, initial encounter; J45.909 Unspecified asthma, uncomplicated; R60.9 Edema, unspecified; D64.9 Anemia, unspecified; I10 Essential (primary) hypertension; K59.00 Constipation, unspecified; Z85.3 Personal history of malignant neoplasm of breast; Z79.82 Long term (current) use of aspirin; C50.919 Malignant neoplasm of unspecified site of unspecified female breast; Z17.421 Hormone receptor negative with human epidermal growth factor receptor 2 negative status; Z86.718 Personal history of other venous thrombosis and embolism; Z90.13 Acquired absence of bilateral breasts and nipples; Z92.21 Personal history of antineoplastic chemotherapy; Y83.4 Other reconstructive surgery as the cause of abnormal reaction of the patient, or of later complication, without mention of misadventure at the time of the procedure; Y81.8 Miscellaneous general- and plastic-surgery devices associated with adverse incidents, not elsewhere classified
CPT/HCPCS: 71275; 80048; 80053; 85014; 85018; 85025; 86146; 86147; 86148; 86850; 86900; 86901; 88304; 93970; 96374; 96375; 99285; A4648; C1729; C1789; Q9967

== ENCOUNTER → 2025-09-16 15:37 | Outpatient (REF) | payer OTHER, SELFPAY | LOC: RAD 15:37 | PROVIDERS: FAMILY PHYSICIAN Nurse Practitioner Adult Health; OTHER PHYSICIAN Surgery; REFERRING PHYSICIAN Internal Medicine Hematology & Oncology | DX: I82.C12 Acute embolism and thrombosis of left internal jugular vein (principal); Z86.718 Personal history of other venous thrombosis and embolism; Z85.3 Personal history of malignant neoplasm of breast | CPT/HCPCS: 93970 ==